=== PATIENT | male | born 1940 | race Caucasian/White ===

== ENCOUNTER → 2018-05-29 07:26 | Outpatient (CLI) | payer MEDICARE ==
[~2018-05-29] VITALS: Ht 177.8 cm; Wt 75.0 kg
--- NOTE | ~2018-05-29 | HEMODYNAMI ---
PATIENT:ED VEGA MEDICAL RECORD: [id number] : 44 LOCATION:[facility] ADMISSION DATE: 05/29/18 Generatedon:05/29/201810:16 Patient name: ED VEGA Patient #: [id number] SSN: : Date of study: 05/29/2018 Page: Of Hemodynamic Procedure Report Patient Data Patient Demographics Procedure consent was obtained First Name: ED Gender: Male Last Name: SILVIA : 1940 Patient #: [id number] Age: 77 year(s) Race: Unknown Additional ID: [id number] Contact details [address]: [address] [place] [address] State: [place] City: [place] Zip code: [address] Past Medical History Allergies Allergen Reaction Date Comments Reported Other allergy 05/29/2018 ALBUTEROL, CODEINE Admission Admission Data Admission Date: 05/29/2018 Admission Time: 7:26 Height (in.): 70 BSA: 1.91 (m2) Height (cm.): 177.8 BMI: 23.39 (kg/m2) Weight (lbs.): 163 Weight (kg.): 73.94 Lab Results Lab Result Date: 05/29/2018 Lab Result Time: 0:00 Biochemistry Name Units Result Min Max BUN mg/dl 27 --(----)-* 7 18 Creatinine mg/dl 0.9 --(-*--)-- 0.6 1.3 CBC Name Units Result Min Max Hemoglobin g/dl 12.9 -*(----)-- 13.5 17.5 Procedure Procedure Types Cath Procedure Diagnostic Procedure LHC LHC w/Coronaries w/Grafts Sedation Charges Moderate Sedation up to 15 minutes PCI Procedure AMI/SVG/PRINT DEVELOPER AUTOMATIC PTCA or Stent SVG-BMS/NAOMI Initial Procedure Description Procedure Date Procedure Date: 05/29/2018 Procedure Start Time: 9:37 Procedure End Time: 10:03 Procedure Staff Name Function Cecilia Veronica RN Histology Specialist Indra Negrete MD Performing Physician Alcides Chung RT Monitor Sujata Wilkins RT Scrub Ofelia Bowens RN Nurse Procedure Data Cath Procedure Fluoroscopy Diagnostic fluoroscopy Total fluoroscopy Time: time: 10.9 min 10.9 min Diagnostic fluoroscopy Total fluoroscopy dose: 832 dose: 832 mGy mGy Contrast Material Contrast Material Type Amount (ml) Isovue 300 135 Entry Location Entry Primary Successful Side Size Upsize Upsize Entry Closure Succes sful Closure Location (Fr) 1 (Fr) 2 (Fr) Remarks Device Remarks Femoral Right 5 Fr 6 Fr Exoseal artery Short Estimated blood loss: 10 ml Diagnostic catheters Device Type Used For End Catheter Placement MULTIPACK Pigtail 5 Fr Procedure catheter MULTIPACK JL 4.0 5Fr Procedure catheter MULTIPACK 3DRC 5Fr Procedure catheter DIAGNOSTIC AR2 MOD 5 Fr Procedure catheter ([id number]) DIAGNOSTIC AL2 5Fr Procedure catheter ([id number]) Procedure Complications No complications Procedure Medications Medication Administration Route Dosage 0.9% NaCl I.V. 100 ml/hr Oxygen etCO2 Nasal cannula 2 l/min Lidocaine 2% added to field 20 Heparin Flush Bag added to field 2 bags (1000units/500ml NS) Versed I.V. 2 mg Fentanyl I.V. 50 mcg Versed I.V. 2 mg Fentanyl I.V. 50 mcg Heparin Bolus I.V. 4000 units Integrilin (Bolus I.V. 6.8 ml 2mg/ml) Plavix P.O. 600 mg Nitroglycerin IC/IA I.C. 200 mcg Hemodynamics Rest BSA: 1.91 (m2) HGB: 12.9 (g/dl) O2 Consumption: Estimated: 221.83 (ml/min) O2 Co nsumption indexed: Estimated:116.14 (ml/min/m) Heart Rate: 73 (bpm) Snapshots Pre Cath Intra NCS Post Cath Vital Signs Time Heart Resp SPO2 etCO2 NIBP (mmHg) Rhythm Pain Sedation Rate (ipm) (%) (mmHg) Status Level (bpm) 9:15:24 72 21 97 23.2 189/109(151) NSR 0 (11) 10(A) , No pain 9:19:44 76 16 100 20.2 160/96(137) NSR 0 (11) 10(A) , No pain 9:24:00 74 23 96 29 163/90(128) NSR 0 (11) 10(A) , No pain 9:28:18 69 23 96 4.4 134/79(111) NSR 0 (11) 10(A) , No pain 9:32:32 68 26 97 16.5 140/81(113) NSR 0 (11) 10(A) , No pain 9:37:49 67 20 99 14.9 150/80(125) NSR 0 (11) 10(A) , No pain 9:42:05 78 20 96 8.2 133/84(113) NSR 0 (11) 10(A) , No pain 9:46:22 69 20 96 12.7 125/68(89) NSR 0 (11) 9(A) , No pain 9:50:36 71 17 96 17.2 117/61(86) NSR 0 (11) 9(A) , No pain 9:54:49 69 17 97 24.7 110/58(80) NSR 0 (11) 9(A) , No pain 9:58:57 75 22 97 33 98/64(89) NSR 0 (11) 9(A) , No pain 10:03:54 66 9 98 34.5 124/73(95) NSR 0 (11) 9(A) , No pain Medications Time Medication Route Dose Verified Delivered Reason Notes Effectiveness by by 9:14:23 0.9% NaCl I.V. 100 Indra Ofelia used for ml/hr Caden Bowens nail technician 9:14:29 Oxygen etCO2 2 Indra Ofelia used for Nasal l/min Caden Bowens procedure cannula RN 9:14:35 Lidocaine 2% added 20ml Indra Burrell for local to vial Caden Negrete MD anesthetic field 9:14:40 Heparin Flush added 2 Indra Indra used for Bag to bags Caden Negrete MD procedure (1000units/500ml field NS) 9:36:51 Versed I.V. 2 mg Indra Ofelia for sedation Caden Bowens RN 9:36:57 Fentanyl I.V. 50 Indra Ofelia for sedation mcg Caden Bowens RN 9:44:57 Versed I.V. 2 mg Indra Ofelia for sedation Caden Bowens RN 9:45:02 Fentanyl I.V. 50 Indra Ofelia for sedation mcg Tauth MD Kwan RN 9:48:10 Heparin Bolus I.V. 4000 Indra Gilbert for verifi ed units Caden Bowens anticoagulation with Dr. GYPSY Negrete 9:49:50 Integrilin I.V. 6.8 Indra Gilbert for wasted (Bolus 2mg/ml) ml Caden Bowens anticoagulation 3.2mL RN 9:50:09 Plavix P.O. 600 Indra Gilbert for mg Caden Bowens antiplatelet RN therapy 9:58:07 Nitroglycerin I.C. 200 Inrda Burrell for IC/IA mcg Caden Negrete MD vasodilation Procedure Log Time Note 8:58:40 Patient Height : 70 inches 8:58:49 Patient Weight : 163 lbs 8:59:35 Time tracking: Regular hours (M-F 7:00 - 5:00) 8:59:40 Plan of Care:Hemodynamics will remain stable., Cardiac rhythm will remain stable., Comfort level will be maintained., Respiratory function will remain adequate., Patient/ family verbilizes understanding of procedure., Procedure tolerated without complication., Recovers from procedure without complications.. 8:59:44 Diagnostic Cath status Elective 8:59:45 Signed procedure consent form obtained from patient. 8:59:53 H&P Date Dictated: 05/16/2018 Within 30 days and on chart., H&P Addendum completed by physician on day of procedure. (MUST COMPLETE FOR ALL OUTPATIENTS). 9:00:18 Patient allergic to Other allergyALBUTEROL, CODEINE 9:00:31 Cecilia Veronica RN sent for patient. Start room use. 9:01:46 Lab Result : Hemoglobin 12.9 g/dl 9:01:46 Lab Result : Creatinine 0.9 mg/dl 9:01:46 Lab Result : BUN 27 mg/dl 9:09:26 Patient received from Pre/Post Procedure Room to CCL 1 Alert and oriented. Tansferred to table in Supine position. 9:09:28 Correct patient and procedure confirmed by team. 9:09:28 Warm blankets applied, and milady hugger turned on for patient comfort. 9:09:29 ECG and BP/O2 sat monitors applied to patient. 9:14:10 Vital chart was started 9:14:23 0.9% NaCl 100 ml/hr I.V. was administered by Ofelia Kwan RN; used for procedure; 9:14:29 Oxygen 2 l/min etCO2 Nasal cannula was administered by Ofelia Bowens RN; used for procedure; 9:14:35 Lidocaine 2% 20ml vial added to field was administered by Indra Negrete MD; for local anesthetic; 9:14:40 Heparin Flush Bag (1000units/500ml NS) 2 bags added to field was administered by Indra Negrete MD; used for procedure; 9:21:42 Baseline sample Acquired. 9::46 Rhythm: sinus rhythm 9::48 Full Disclosure recording started 9::49 Pre-op teaching completed and patient verbalized understanding. 9::49 Pre-procedure instructions explained to patient. 9:21:53 Family in waiting room. 9:21:55 Patient NPO since Midnight. 9:21:56 Is the patient allergic to Iodine/contrast media? No. 9:21:58 Is patient on blood thinner?No 9:21:59 Patient diabetic? No. 9:22:02 Previous problem with sedation/anesthesia? No ? 9:22:03 Snore? Yes 9:22:04 Sleep apnea? No 9:22:05 Deviated septum? No 9:22:06 Sticks out tongue? Yes 9:22:06 Opens mouth fully? Yes 9:22:09 Airway obstruction? Yes COPD 9:22:15 Dentures? Yes IN TIGHT 9:22:19 Pre procedure: right dorsailis pedis pulse 2+ Normal; easily identifiable; not easily obliterated 9:22:20 Patient pain scale 0/10 ?. 9:22:26 IV patent on arrival in right forearm with 0.9% NaCl at [facility]. 9:22:28 Lab results completed and on chart. 9:22:31 Alarms reviewed by R. N. 9:22:31 Right groin area was prepped with chlora-prep and draped in sterile fashion 9:22:33 Sharps counted by scrub and verified by R.N. 9:22:35 Use device set Femoral Dx 9:22:36 Bag Decanter () opened to sterile field. 9:22:36 ACIST Syringe (98054) opened to sterile field. 9:22:37 Medline Cath Pack ([id number]) opened to sterile field. 9:22:38 ACIST Manifold (41410) opened to sterile field. 9:22:38 ACIST Hand Control (97891) opened to sterile field. 9:22:39 Tegaderm 4 x 4 (1626W) opened to sterile field. 9:22:39 DIAGNOSTIC Multipack 5Fr catheter set (RB9921) opened to sterile field. 9:22:41 SHEATH 5FR [place] (VYP658) opened to sterile field. 9:22:42 DIAGNOSTIC WIRE .035 260cm J wire (171022) opened to sterile field. 9:23:33 Physician paged 9:26:18 Zero performed for pressure channel P1 9:36:09 Physician arrived 9:36:10 Final Timeout: patient, procedure, and site verified with staff and physician. All members of the team are in agreement. 9:36:10 --------ALL STOP TIME OUT------ 9:36:11 Right groin site verified by team. 9:36:13 Physical assessment completed. ASA score P 3 - A patient with severe systemic disease as per Indra Negrete MD. 9:36:15 Sedation plan: IV Moderate Sedation Medication:Versed, Fentanyl 9:36:51 Versed 2 mg I.V. was administered by Ofelia Bowens RN; for sedation; 9:36:57 Fentanyl 50 mcg I.V. was administered by Ofelia Bowens RN; for sedation; 9:37:27 Procedure started. 9:37:30 Local anesthetic to right femoral artery with Lidocaine 2% by Indra Negrete MD.INITIAL ACCESS ONLY 9:37:34 A 5 Fr sheath was inserted into the Right Femoral artery 9:37:41 A MULTIPACK Pigtail 5 Fr catheter was advanced over the wire and used for Procedure. 9:39:35 LV gram done using LAIRD 9:39:37 Injector settings: Ml/sec: 10, Volume: 20, 9:39:39 LV hemodynamics recorded. 9:39:46 EF : 25 % 9:39:52 Catheter exchanged over wire. 9:39:56 A MULTIPACK JL 4.0 5Fr catheter was advanced over the wire and used for Procedure. 9:40:47 LCA angiography performed. 9:41:21 Catheter exchanged over wire. 9:41:29 A MULTIPACK 3DRC 5Fr catheter was advanced over the wire and used for Procedure. 9:42:52 AUGUSTIN angiography 9:42:56 RCA angiography performed. 9:43:01 SVG to RCA angiography performed. 9:43:45 SVG to LAD angiography performed. 9:44:06 Catheter exchanged over wire. 9:44:09 A DIAGNOSTIC AR2 MOD 5 Fr catheter ([id number]) was advanced over the wire and used for Procedure. 9:44:50 SVG to LAD angiography performed. 9:44:57 Versed 2 mg I.V. was administered by Ofelia Bowens RN; for sedation; 9:45:02 Fentanyl 50 mcg I.V. was administered by Ofelia Bowens RN; for sedation; 9:47:37 SHEATH 6FR [place] (PFD482) opened to sterile field. 9:47:42 Catheter removed. 9:47:49 Sheath upsized to a 6 Fr Short. 9:47:54 A DIAGNOSTIC AL2 5Fr catheter ([id number]) was advanced over the wire and used for Procedure. 9:48:03 SVG to Circ angiography performed. 9:48:10 Heparin Bolus 4000 units I.V. was administered by Ofelia Bowens RN; for anticoagulation; verified with Dr. Negrete 9:48:22 CHOICE PT Extra Support 182cm wire ([id number]) opened to sterile field. 9:48:23 INFLATOR Merit BasixCompak (XZ3278) opened to sterile field. 9:48:28 GUIDE 6FR AR 2.0 catheter (IL7WN90) opened to sterile field. 9:49:15 Catheter exchanged over wire. 9:49:21 6 Fr AR 2 guide catheter was inserted over the wire 9:49:50 Integrilin (Bolus 2mg/ml) 6.8 ml I.V. was administered by Ofelia Bowens RN; for anticoagulation; wasted 3.2mL 9:50:09 Plavix 600 mg P.O. was administered by Ofelia Bowens RN; for antiplatelet therapy; 9:50:37 SVG to RCA angiography performed. 9:50:40 The EUPHORA 2.5 x 12 Balloon ([id number]) was advanced and then removed because it was opened but not used 9:50:45 CHOICE PT ES wire advanced. 9:54:03 Place stent Inflation Number: 1 A JOSE Rx 4.0 x 38 stent ([id number]) was prepped and advanced across the Aorta Left -> Mid LAD. The stent was deployed at 17 PETER for 0:10 (min:sec). 9:54:34 Stent catheter was removed intact over wire. 9:55:40 Place stent Inflation Number: 2 A JOSE RX 4.0 x 15 stent ([id number]) was prepped and advanced across the Aorta Left -> Mid LAD. The stent was deployed at 17 PETER for 0:10 (min:sec). 9:56:07 Stent catheter was removed intact over wire. 9:58:07 Nitroglycerin IC/IA 200 mcg I.C. was administered by Indra Negrete MD; for vasodilation; 9:58:35 Wire removed. 9:58:36 Guide catheter removed. 9:58:49 EXOSEAL 6Fr (EX600) opened to sterile field. 9:58:56 Sheath removed intact; hemostasis achieved with Exoseal to the Right Femoral artery. 9:58:58 Procedure ended.(Physican Out) 10:01:28 Fluoroscopy time 10.90 minutes. 10:01:33 Fluoroscopy dose: 832 mGy 10:01:33 Flurop Dose total: 832 10:01:36 Contrast amount:Isovue 300 135ml. 10:01:37 Sharps counted by scrub and verified by R.N. 10:01:38 Insertion/operative site no bleeding no hematoma. 10:01:40 Post-op/insertion site Right Femoral artery dressed using a 4 x 4 and Tegaderm. 10:01:45 Post right femoral artery:stable, soft, clean and dry 10:01:47 Post Procedure Pulses reassessed and unchanged 10:01:52 Post-procedure physical assessment completed. ASA score P 3 - A patient with severe systemic disease as per Indra Negrete MD. 10:02:07 Post procedure rhythm: unchanged. 10:02:09 Estimated blood loss: 10 ml 10:02:11 Patient needs reinforcement of post procedure teaching. 10:02:11 Post procedure instruction explained to patient.Patient verbalizes understanding. 10:02:57 Procedure type changed to Cath procedure, Diagnostic procedure, LHC, LHC w/Coronaries w/Grafts, Sedation Charges, Moderate Sedation up to 15 minutes, PCI procedure, AMI/SVG/PRINT DEVELOPER AUTOMATIC PTCA or Stent, SVG-BMS/NAOMI Initial 10:03:23 Procedure and supply charges have been captured, reviewed, submitted and are correct. 10:03:26 Procedure Complication : No complications 10:03:27 Vital chart was stopped 10:03:28 See physician's report for complete and final results. 10:03:29 Report given to Pre/Post Procedure Room. 10:03:32 Full Disclosure recording stopped 10:03:32 Procedure ended. 10:03:37 End room use (Document Last) 10:15:40 FEMSTOP Gold ([id number]) opened to sterile field. 10:15:57 Femstop placed over the right femoral artery at 124 mmHg. Hemostasis achieved. Intervention Summary Intervention Notes Time ActionType Lesion and Equipment Used Action# Pressure Duration Attributes 9:50:40 Discard EUPHORA 2.5 x Balloon 12 Balloon ([id number]) 9:54:03 Place stent Aorta Left JOSE Rx 4.0 x 1 17 00:10 -> Mid LAD 38 stent ([id number]) 9:55:40 Place stent Aorta Left JOSE RX 4.0 x 2 17 00:10 -> Mid LAD 15 stent ([id number]) Device Usage Item Name Manufacture Quantity Catalog Number Hospital Part Current M inimal Lot# / Charge Number Stock Stock Serial# Code ACIST Syringe Acist 1 86476 717697 233518 178693 2 0 (69924) Medical Systems Inc Bag Decanter Microtek 1 2001S 094958 41213 454045 5 (2001S) Medical Inc. Medline Cath Medline 1 [id number] 483997 09909 453582 5 Pack ([id number]) ACIST Hand Acist 1 67815 750389 405108 112101 5 Control Medical (55477) Systems Inc ACIST Manifold Acist 1 91047 496331 628768 609635 5 (63132) Medical Systems Inc DIAGNOSTIC Cardinal 1 RR7841 074351 71849 285792 3 0 Multipack 5Fr Health catheter set (BC0072) Tegaderm 4 x 4 3M 1 1626W 086731 651156 352366 5 (1626W) SHEATH 5FR Terumo 1 GOX104 856395 456584 606401 4 0 [place] (UKT297) DIAGNOSTIC St Bakari 1 318765 341702 401792 771527 3 0 WIRE .035 260cm J wire (944582) MULTIPACK Cardinal 1 611244 5 Pigtail 5 Fr Health catheter MULTIPACK JL Cardinal 1 088246 5 4.0 5Fr Health catheter MULTIPACK 3DRC Cardinal 1 836471 5 5Fr catheter Health DIAGNOSTIC AR2 Cardinal 1 [id number] 849532 279350 420639 2 0 MOD 5 Fr Health catheter (293255O) SHEATH 6FR Terumo 1 BAI868 980106 172626 320913 4 0 [place] (OHO306) DIAGNOSTIC AL2 Cardinal 1 [id number] 410856 313876 420230 1 5 5Fr catheter Health (623107G) CHOICE PT Delta 1 [id number] 640907 707729 090162 5 Extra Support Scientific 182cm wire (5566729I4) INFLATOR Merit Merit 1 AV9639 724753 398930 529153 1 5 Medcurrent (GE8737) GUIDE 6FR AR Medtronic 1 [id number] 568189 01778 696189 1 2.0 catheter (XE3YR04) JOSE Rx 4.0 x Medtronic 1 [id number] 878350 1872329 224072 5 [id number] 38 stent ([id number]) JOSE RX 4.0 x Medtronic 1 [id number] 346043 9814127 124389 5 [id number] 15 stent ([id number]) EXOSEAL 6Fr Cardinal 1 EX600 021937 148244 417328 1 0 (EX600) Health EUPHORA 2.5 x Medtronic 1 [id number] 222440 295271 794378 5 [id number] 12 Balloon ([id number]) FEMSTOP Gold St Bakari 1 R32403 576547 061899 297423 5 ([id number]) Signature Audit [place] Stage Time Signature Unsigned Intra-Procedure 05/29/2018 Alcides Chung RT(R) 10:04:16 AM RT(R) 05/29/2018 10:15:10 AM Intra-Procedure 05/29/2018 Alcides Chung 10:16:19 AM RT(R) Signatures Monitor : Alcides Chung RT Signature : Date : Time : [facility] [address] [place] [address]
[~2018-05-29 07:26] MED LIST: ALDACTONE25 MG PO; BAYER CHEWABLE81 MG PO; BYSTOLIC5 MG PO; COMBIVENT RESPIM4 GM INH; CRESTOR5 MG PO; FLOMAX0.4 MG PO; LASIX20 MG PO; LEVAQUIN500 MG PO; PLAVIX75 MG PO; PREDNISONE20 MG PO; PREDNISONE50 MG PO; SPIRIVA18 MCG INH; STERAPRED DS 1210 MG PO; TENORMIN50 MG PO; VASOTEC10 MG PO; VASOTEC20 MG PO; VENTOLIN/PR2 MG/5 ML PO
[2018-05-29 08:01] VITALS: BP 207/109; Ht 177.8 cm; Wt 75.0 kg
[2018-05-29 08:35] LABS: BASOPHILS 1.1 % (0-2); EOSINOPHILS 6.9 % (0-7); HEMATOCRIT 37.5 % (42.0-54.0); HEMOGLOBIN 12.9 g/dL (13.5-17.5); IMMATURE GRANULOCYTES 0.2 % (0-5); MCH 30.6 pg (26.0-34.0); MCHC 34.4 g/dL (31.0-37.0); MCV 88.9 fL (80.0-100.0); MEAN PLATELET VOLUME 11.1 fL (7.4-10.4); MONOCYTES 11.6 % (2-11); NEUTROPHILS 54.2 % (40-80); PLATELET COUNT 190 10x3/uL (130-400); RBC 4.22 10x6/uL (4.20-6.10); WBC 5.4 10x3/uL (4.8-10.8)
[2018-05-29 08:43] LABS: CALC OSMOLALITY 280 mosm/kg (275-300); CALCIUM 8.9 mg/dL (8.5-10.1); CARBON DIOXIDE 28.6 mmol/L (21.0-32.0); CHLORIDE - SERUM 101 mmol/L (98-107); CREATININE - SERUM 0.9 mg/dL (0.6-1.3); GLUCOSE 105 mg/dL (74-106); SODIUM 138 mmol/L (136-145); UREA NITROGEN 27 mg/dL (7-18); eGFR NON AFRICAN AMERICAN 87 mL/min (90-120)
--- NOTE | 2018-05-29 10:33 | NUR ---
RECIEVED TO ROOM VIA STRETCHER FROM PHYSICIAN ADVISOR WITH 6 FR EXOSEAL R/GROIN FEMSTOP IN PLACE WITH NO BLEEDING NOTED. HEMATOMA MARKED FOR OBSERVATION. PATIENT DENIED CHEST PAIN. CONNECTED TO MONITOR FOR OBSERVATION WITH HR 66 BP 134/80
--- NOTE | 2018-05-29 10:41 | NUR ---
TOLERATING SIPS OF WATER WITH NAUSEA DENIED. FEMSTOP REMAINS TO R/GROIN AT 127 WITH NO GROWTH IN HEMATOMA.VSS
--- NOTE | 2018-05-29 11:05 | NUR ---
VSS WITH PATIENT RESTING QUIETLY. FEMSTOP REMAINS TO R/GROIN WITH PRESSURE AT 120 CHEST PAIN IS DENIED NO GROWTH TO HEMATOMA SITE SOFT TO TOUCH
--- NOTE | 2018-05-29 11:21 | NUR ---
FAMILY AT BEDSIDE WITH NEEDS DENIED CALL LIGHT IN REACH. PATIENT RESTING QUIETLY NO DISTRESS
--- NOTE | 2018-05-29 11:43 | NUR ---
PRESSURE TO FEMSTOP SLOWLY RELEASED TO 80 WITH NO BLEEDING OR HEMATOMA NOTED. VSS AND CHEST PAIN DENIED PATIENT VOIDS TO COLLECTION
--- NOTE | 2018-05-29 12:16 | NUR ---
PRESSURE TO FEMSTOP RELEASED TO 50 WITH NO BLEEDING NOTED. SANDWICH AND SODA TO BEDSIDE.
--- NOTE | 2018-05-29 12:47 | NUR ---
ALL PRESSURE TO FEMSTOP REMOVED WITH NO BLEEDING OR HEMATOMA NOTED. VSS AND CHEST PAIN IS DENIED
--- NOTE | 2018-05-29 13:32 | NUR ---
DRESSING TO R/GROIN REMAINS CDI WITH NO HEMATOMA NOTED. PATIENT REPOSITIONED TO SITTING WITH HOB UP 30 FOR COMFORT. CHEST PAIN IS DENIED. PIV REMOVED WITH DRESSING APPLIE. PATIENT EATING LUNCH WITH NAUSEA DENIED
--- NOTE | 2018-05-29 13:50 | NUR ---
VERBAL AND WRITTEN DISCHARGE GONE OVER WITH PATIENT AND FAMILY. PATIENT UP TO GET DRESSED FOR DISCHARGE HOME WITH CHEST PAIN DENIED
--- NOTE | 2018-05-29 14:00 | NUR ---
PATIENT LEFT VIA WC TO PARKING FOR RIDE HOME WITH FAMILY DRESSING TO R/GROIN CDI AND CHEST PAIN DENIED NO DISTRESS NOTED
--- NOTE | 2018-05-30 17:18 | OP ---
PATIENT NAME: ED VEGA MEDICAL RECORD: [id number] :42 LOCATION:D.CAT ADMISSION DATE: SURGEON: MAYRA MORRIS MD DATE OF OPERATION: 05/29/2018 PROCEDURES: 1. PTCA stent vein graft to LAD. 2. Left heart catheterization. 3. Selective coronary angiography. 4. Left ventriculogram. 5. Vein graft angiography. 6. AUGUSTIN angiography. INDICATION: Unstable angina and coronary artery disease. PROCEDURE IN DETAIL: After informed consent was obtained and after a detailed description of the risks, benefits as well as alternative therapies, the patient elected to proceed with angiogram and angioplasty. The right femoral area was prepped and draped in normal sterile fashion. Right femoral artery was cannulated via modified Seldinger technique with placement of 6-Faroese sheath. All catheters exchanged through this sheath. FINDINGS: The left ventriculogram was performed in standard 30-degree LAIRD view reveals global hypokinesis throughout all segments. Overall ejection fraction 25%. SELECTIVE CORONARY ANGIOGRAPHY: 1. Left main is 80% stenosis. 2. The left anterior descending is totally occluded. 3. Left circumflex is totally occluded. 4. Right coronary is totally occluded. 5. AUGUSTIN is nongrafted. 6. Vein graft to the LAD is patent. There are 2 areas of 75% stenosis in the mid shaft. 7. Vein graft to the circumflex is patent at least 2 areas of greater than 75% stenosis in the mid shaft. 8. Vein graft to the right coronary is patent. Distal right coronary is very tortuous after the graft there. The PLV has 95% stenosis. This cannot be reached due to the angulation. PTCA STENT OF THE LAD VEIN GRAFT: The stent used were 4.0 x 38 and 4.0 x 15, both Jack stents. Result was 0% residual stenosis. OVERALL IMPRESSION: Successful PTCA stent of the vein graft to the LAD going from greater than 75% initial stenosis to 0% residual. PLAN: PTCA stent of the vein graft to the circumflex in the near future. TRANSINT:[id number] Voice Confirmation ID: [id number] DOCUMENT ID: [id number] OPERATIVE REPORT [id number] ED VEGA JEFFREY MD at 3008 CC: [id number] DICTATION DATE: 05/29/18 1003 DESTINATION IMAGINATION COORDINATOR: 05/29/18 1137 DEP CLI 05/29/18 [facility] [address] [place] [address]
== END | disposition home or self-care (01) ==
LOC: D.CATH 07:26
PROVIDERS: Internal Medicine Interventional Cardiology
DX: I25.710 Atherosclerosis of autologous vein coronary artery bypass graft(s) with unstable angina pectoris (principal); I25.110 Atherosclerotic heart disease of native coronary artery with unstable angina pectoris; Z01.812 Encounter for preprocedural laboratory examination
CPT/HCPCS: 93459; C9604

== ENCOUNTER 2018-06-03 08:15 | Outpatient (CLI) | payer MEDICARE ==
[~2018-06-03] VITALS: Ht 177.8 cm; Wt 75.0 kg
--- NOTE | ~2018-06-03 | OP ---
PATIENT NAME: ED VEGA MEDICAL RECORD: [id number] :42 LOCATION:D.CAT ADMISSION DATE: SURGEON: MAYRA MORRIS MD DATE OF OPERATION: 06/03/2018 PROCEDURES: 1. PTCA stent vein graft to left circumflex. 2. Selective coronary angiography. 3. Bilateral selective renal angiography. INDICATION: Angina and coronary artery disease, renovascular hypertension. PROCEDURE IN DETAIL: After informed consent was obtained and after a detailed description of risks, benefits as well as alternative therapies, the patient elected to proceed with angiogram and angioplasty. The left femoral area was prepped and draped in normal sterile fashion. Left femoral artery was cannulated via modified Seldinger technique with placement of 6-Bahamian sheath. All catheters exchanged through this sheath. FINDINGS: The right renal artery is solitary artery off the aorta with no significant pressure damping at the ostium. No significant renal artery stenosis. The left renal artery is a solitary artery off the aorta with no significant pressure damping at the ostium. No significant renal artery stenosis. PTCA STENT OF VEIN GRAFT TO CIRCUMFLEX: There are 2 areas of 80% stenosis. These were both addressed with a 3.0 x 12 mm Jack stents. Result was 0% residual stenosis. OVERALL IMPRESSION: Successful percutaneous transluminal coronary angioplasty stent of the vein graft to the circumflex going from 80% initial stenosis times 2 to 0% residual. TRANSINT:[id number] Voice Confirmation ID: [id number] DOCUMENT ID: [id number] MAYRA MORRIS MD at 1025 CC: [id number] DICTATION DATE: 06/03/18 1216 RECREATION DIRECTOR: 06/03/18 1253 DEP CLI 06/03/[address] [address]
--- NOTE | ~2018-06-03 | HEMODYNAMI ---
PATIENT:ED VEGA MEDICAL RECORD: [id number] : 44 LOCATION:[facility] ADMISSION DATE: 06/03/18 Generatedon:06/03/201812:20 Patient name: ED VEGA Patient #: [id number] SSN: : Date of study: 06/03/2018 Page: Of Hemodynamic Procedure Report Patient Data Patient Demographics Procedure consent was obtained First Name: ED Gender: Male Last Name: SILVIA : 1940 Middle Initial: J Age: 77 year(s) Patient #: [id number] Race: Unknown Additional ID: [id number] Contact details [address]: [address] [place] [address] State: [place] City: [place] Zip code: [address] Past Medical History Allergies Allergen Reaction Date Comments Reported Other allergy 05/29/2018 ALBUTEROL, CODEINE Admission Admission Data Admission Date: 06/03/2018 Admission Time: 8:15 Lab Results Lab Result Date: 05/29/2018 Lab Result Time: 0:00 Biochemistry Name Units Result Min Max BUN mg/dl 27 --(----)-* 7 18 Creatinine mg/dl 0.9 --(-*--)-- 0.6 1.3 CBC Name Units Result Min Max Hemoglobin g/dl 12.9 -*(----)-- 13.5 17.5 Procedure Procedure Types Cath Procedure PCI Procedure AMI/SVG/MANAGER OF SECURITY PTCA or Stent SVG-BMS/NAOMI Initial Peripheral Cath Diagnostic Procedure Maintenance Painter Peripheral Procedures Renal Arteriogram Procedure Description Procedure Date Procedure Date: 06/03/2018 Procedure Start Time: 11:57 Procedure End Time: 12:18 Procedure Staff Name Function Indra Negrete MD Performing Physician Tyree Lamb RT Monitor Sujata Wilkins RT Scrub Christian Muñoz RN Head Golf Professional Cosmo James RN Nurse Procedure Data Cath Procedure Fluoroscopy Diagnostic fluoroscopy Total fluoroscopy Time: 8.2 time: 8.2 min min Diagnostic fluoroscopy Total fluoroscopy dose: 242 dose: 242 mGy mGy Contrast Material Contrast Material Type Amount (ml) Isovue 300 112 Entry Location Entry Primary Successful Side Size Upsize Upsize Entry Closure Succes sful Closure Location (Fr) 1 (Fr) 2 (Fr) Remarks Device Remarks Femoral Left 6 Fr Exoseal artery Short Estimated blood loss: 10 ml Procedure Complications No complications Procedure Medications Medication Administration Route Dosage 0.9% NaCl I.V. 100 ml/hr Oxygen etCO2 Nasal cannula 2 l/min Heparin Flush Bag added to field 2 bags (1000units/500ml NS) Oxygen etCO2 Nasal cannula 2 l/min Versed I.V. 1 mg Fentanyl I.V. 50 mcg Versed I.V. 1 mg Fentanyl I.V. 50 mcg Heparin Bolus I.V. 4000 units Hemodynamics Rest HGB: 12.9 (g/dl) Heart Rate: 68 (bpm) Snapshots Pre Cath Intra NCS Post Cath Vital Signs Time Heart Resp SPO2 etCO2 NIBP (mmHg) Rhythm Pain Sedation Rate (ipm) (%) (mmHg) Status Level (bpm) 11:43:02 100 12 98 0 162/90(139) NSR 0 (11) 10(A) , No pain 11:47:27 60 14 99 0 156/85(134) NSR 0 (11) 10(A) , No pain 11:51:47 62 20 100 0 134/80(111) NSR 0 (11) 10(A) , No pain 11:56:05 60 17 98 0 145/73(108) NSR 0 (11) 10(A) , No pain 12:00:21 63 12 100 0 132/80(102) NSR 0 (11) 9(A) , No pain 12:04:39 64 16 94 0 120/66(88) NSR 0 (11) 9(A) , No pain 12:08:53 62 12 92 0 109/60(86) NSR 0 (11) 9(A) , No pain 12:13:05 67 12 92 0 109/58(83) NSR 0 (11) 10(A) , No pain 12:17:15 65 21 91 0 108/67(92) NSR 0 (11) 10(A) , No pain Medications Time Medication Route Dose Verified Delivered Reason Notes Effectiveness by by 11:49:40 0.9% NaCl I.V. 100 Cosmo Cosmo Per physician ml/hr Jacob James RN RN 11:49:49 Oxygen etCO2 2 Cosmo Cosmo Per physician Nasal l/min Loralbertina James cannula RN RN 11:50:05 Heparin Flush added 2 Cosmo Cosmo used for Bag to bags Loralbertina James procedure (1000units/500ml field RN RN NS) 11:50:16 Oxygen etCO2 2 Cosmo Cosmo Per physician Nasal l/min Jacob James cannula RN RN 11:55:22 Versed I.V. 1 mg Cosmo Cosmo for sedation Loralbertina James RN RN 11:55:30 Fentanyl I.V. 50 Cosmo Cosmo for sedation mcg Jacob James RN RN 11:58:14 Versed I.V. 1 mg Cosmo Cosmo for sedation Jacob James RN RN 11:58:19 Fentanyl I.V. 50 Cosmo Cosmo for sedation mcg Jacob James RN RN 12:06:50 Heparin Bolus I.V. 4000 Cosmo Cosmo for units Lorigan Jacob anticoagulation RN donkey doctor Log Time Note 11:29:12 Signed procedure consent form obtained from patient. 11:29:19 Diagnostic Cath status Elective 11:29:27 Time tracking: Regular hours (M-F 7:00 - 5:00) 11:29:31 Plan of Care:Hemodynamics will remain stable., Cardiac rhythm will remain stable., Comfort level will be maintained., Respiratory function will remain adequate., Patient/ family verbilizes understanding of procedure., Procedure tolerated without complication., Recovers from procedure without complications.. 11:31:16 Christian Muñoz RN sent for patient. Start room use. 11:32:39 Procedure type changed to Cath procedure, PCI procedure, AMI/SVG/MANAGER OF SECURITY PTCA or Stent, SVG-BMS/NAOMI Initial, Peripheral Cath Diagnostic Procedure, Maintenance Painter Peripheral Procedures, Renal Arteriogram 11:37:07 Patient received from Pre/Post Procedure Room to CCL 3 Alert and oriented. Tansferred to table in Supine position. 11:37:10 Warm blankets applied, and milady hugger turned on for patient comfort. 11:37:10 Correct patient and procedure confirmed by team. 11:37:12 ECG and BP/O2 sat monitors applied to patient. 11:41:47 Vital chart was started 11:43:23 Baseline sample Acquired. 11:43:37 Rhythm: sinus rhythm 11:47:41 Rhythm: sinus bradycardia 11:47:43 Full Disclosure recording started 11:47:52 H&P Date Dictated: 06/03/2018 Within 30 days and on chart., H&P Addendum completed by physician on day of procedure. (MUST COMPLETE FOR ALL OUTPATIENTS). 11:47:54 Pre-procedure instructions explained to patient. 11:47:55 Pre-op teaching completed and patient verbalized understanding. 11:47:57 Family in patients room. 11:47:59 Patient NPO since Midnight. 11:48:02 Is the patient allergic to Iodine/contrast media? No. 11:48:05 Is patient on blood thinner?Yes 11:48:07 ACC The patient was administered the following blood thiners within the last 24 hours: ACCPlavix 11:48:10 Patient diabetic? No. 11:48:17 Previous problem with sedation/anesthesia? No ? 11:48:18 Snore? Yes 11:48:28 Sleep apnea? No 11:48:30 Deviated septum? No 11:48:30 Opens mouth fully? Yes 11:48:31 Sticks out tongue? Yes 11:48:34 Airway obstruction? Yes COPD 11:48:36 Dentures? Yes IN 11:49:14 Pre procedure: left dorsailis pedis pulse 1+ Palpable, but thready & weak; easily obliterated 11:49:22 Patient pain scale 0/10 ?. 11:49:25 IV patent on arrival in left forearm with 0.9% NaCl at [facility]. 11:49:27 Lab results completed and on chart. 11:49:32 Left groin area was prepped with chlora-prep and draped in sterile fashion 11:49:33 Alarms reviewed by R. N. 11:49:33 Sharps counted by scrub and verified by R.N. 11:49:36 Use device set Radial Dx or PCI 11:49:38 Use device set TAUTH PCI 11:49:40 0.9% NaCl 100 ml/hr I.V. was administered by Cosmo James RN; Per physician; 11:49:42 ACIST Syringe (93507) opened to sterile field. 11:49:42 Medline Cath Pack ([id number]) opened to sterile field. 11:49:44 ACIST Hand Control (77297) opened to sterile field. 11:49:44 ACIST Manifold (53400) opened to sterile field. 11:49:45 Bag Decanter (2002S) opened to sterile field. 11:49:46 Tegaderm 4 x 4 (1626W) opened to sterile field. 11:49:49 Oxygen 2 l/min etCO2 Nasal cannula was administered by Cosmo James RN; Per physician; 11:49:49 DIAGNOSTIC WIRE .035 260cm J wire (095054) opened to sterile field. 11:49:54 INFLATOR Merit BasixCompak (EV4357) opened to sterile field. 11:50:02 CHOICE PT Extra Support 182cm wire ([id number]) opened to sterile field. 11:50:05 Heparin Flush Bag (1000units/500ml NS) 2 bags added to field was administered by Cosmo James RN; used for procedure; 11:50:13 SHEATH 6FR Webster (RMX631) opened to sterile field. 11:50:16 Oxygen 2 l/min etCO2 Nasal cannula was administered by Cosmo James RN; Per physician; 11:54:52 --------ALL STOP TIME OUT------ 11:54:52 Final Timeout: patient, procedure, and site verified with staff and physician. All members of the team are in agreement. 11:54:56 Left groin site verified by team. 11:54:58 Physical assessment completed. ASA score P 2 - A patient with mild systemic disease as per Indra Negrete MD. 11:55:01 Sedation plan: IV Moderate Sedation Medication:Versed, Fentanyl 11:55:22 Versed 1 mg I.V. was administered by Cosmo James RN; for sedation; 11:55:30 Fentanyl 50 mcg I.V. was administered by Cosmo James RN; for sedation; 11:57:28 GUIDE 6FR AR 2.0 catheter (JV2ND02) opened to sterile field. 11:57:33 Procedure started. 11:57:44 Local anesthetic to left femerol artery with Lidocaine 2% by Indra Negrete MD.INITIAL ACCESS ONLY 11:57:56 A 6 Fr Short sheath was inserted into the Left Femoral artery 11:58:14 Versed 1 mg I.V. was administered by Cosmo James RN; for sedation; 11:58:19 Fentanyl 50 mcg I.V. was administered by Cosmo James RN; for sedation; 11:58:21 6 Fr AR 2 guide catheter was inserted over the wire 11:59:55 Guide Catheter removed. unable to cannulate vessel. 12:00:11 GUIDE 6FR ART 4.0 catheter ([id number]) opened to sterile field. 12:00:33 6 Fr ART 4 guide catheter was inserted over the wire 12:01:08 Guide Catheter removed. unable to cannulate vessel. 12:02:53 GUIDE 6FR AL 2.0 catheter (UI6TN72) opened to sterile field. 12:03:03 6 Fr AL 2 guide catheter was inserted over the wire 12:04:20 Guide Catheter removed. unable to cannulate vessel. 12:04:32 GUIDE 6FR LCB catheter (LA6LCB) opened to sterile field. 12:04:43 6 Fr LCB guide catheter was inserted over the wire 12:05:59 CPTXS wire advanced. 12:06:44 Wire advanced across lesion. 12:06:50 Heparin Bolus 4000 units I.V. was administered by Cosmo James RN; for anticoagulation; 12:08:36 Place stent Inflation Number: 1 A JOSE RX 3.0 x 12 stent ([id number]) was prepped and advanced across the Aorta Left -> Dist CX. The stent was deployed at 11 PETER for 0:10 (min:sec). 12:09:51 Stent catheter was removed intact over wire. 12:10:12 Place stent Inflation Number: 1 A JOSE RX 3.0 x 12 stent ([id number]) was prepped and advanced across the Aorta Left -> Dist CX1. The stent was deployed at 15 PETER for 0:10 (min:sec). 12:10:46 Stent catheter was removed intact over wire. 12:10:47 Wire removed. 12:12:42 Left renal angiography performed. 12:12:43 Right renal angiography performed. 12:12:48 EXOSEAL 6Fr (EX600) opened to sterile field. 12:13:03 Guide catheter removed. 12:13:51 Sheath removed intact; hemostasis achieved with Exoseal to the Left Femoral artery. 12:13:53 Procedure ended.(Physican Out) 12:16:06 Fluoroscopy time 08.20 minutes. 12:16:10 Fluoroscopy dose: 242 mGy 12:16:10 Flurop Dose total: 242 12:16:13 Contrast amount:Isovue 300 112ml. 12:16:15 Sharps counted by scrub and verified by R.N. 12:16:16 Insertion/operative site no bleeding no hematoma. 12:16:18 Post-op/insertion site Left Femoral artery dressed using a 4 x 4 and Tegaderm. 12:16:19 Post Procedure Pulses reassessed and unchanged 12:16:21 Post-procedure physical assessment completed. ASA score P 2 - A patient with mild systemic disease as per Indra Negrete MD. 12:16:24 Post procedure rhythm: unchanged. 12:16:27 Estimated blood loss: 10 ml 12:16:28 Post procedure instruction explained to patient.Patient verbalizes understanding. 12:16:28 Patient needs reinforcement of post procedure teaching. 12:16:53 Procedure and supply charges have been captured, reviewed, submitted and are correct. 12:16:56 Procedure Complication : No complications 12:18:48 Vital chart was stopped 12:18:48 See physician's report for complete and final results. 12:18:52 Report given to Pre/Post Procedure Room. 12:18:56 Patient transfered to Pre/Post Procedure Room with Stretcher. 12:18:59 Procedure ended. 12:18:59 Full Disclosure recording stopped 12:19:24 End room use (Document Last) Intervention Summary Intervention Notes Time ActionType Lesion and Equipment Used Action# Pressure Duration Attributes 12:08:36 Place stent Aorta Left JOSE RX 3.0 x 1 11 00:10 -> Dist CX 12 stent ([id number]) 12:10:12 Place stent Aorta Left JOSE RX 3.0 x 1 15 00:10 -> Dist CX1 12 stent ([id number]) Device Usage Item Name Manufacture Quantity Catalog Number Hospital Part Current M inimal Lot# / Charge Number Stock Stock Serial# Code ACIST Syringe Acist 1 17333 991841 660385 789955 2 0 (44365) Bioceros Systems Inc Medline Cath Medline 1 [id number] 562740 00371 299868 5 Pack ([id number]) ACIST Hand Acist 1 32915 427173 504154 842102 5 Control Medical (11922) Overlay Studio Inc ACIST Manifold Acist 1 52332 879515 590731 812698 5 (59520) Medical Systems Inc Bag Decanter Microtek 1 2001S 093322 07369 171165 5 (2001S) Medical Inc. Tegaderm 4 x 4 3M 1 1626W 836028 177427 368335 5 (1626W) DIAGNOSTIC St Bakari 1 936578 355956 382229 440036 3 0 WIRE .035 260cm J wire (529842) INFLATOR Merit Merit 1 SV8029 793042 889805 109317 1 5 Rx Network (DW0802) CHOICE PT Bolivar 1 [id number] 136507 544135 183015 5 Extra Support Scientific 182cm wire ([id number]) SHEATH 6FR Terumo 1 PQW687 461658 885526 136257 4 0 Webster (ZDB121) GUIDE 6FR AR Medtronic 1 ST2WV34 071787 49175 544825 1 2.0 catheter ([id number]) GUIDE 6FR ART [place]ivar 1 [id number] 205299 994112 642371 0 4.0 catheter Scientific ([id number]) GUIDE 6FR AL Medtronic 1 SL1RC53 538319 25419 180651 1 2.0 catheter ([id number]) GUIDE 6FR LCB Medtronic 1 LA6LCB 542177 14062 859912 1 catheter (LA6LCB) JOSE RX 3.0 x Medtronic 2 [id number] 581054 6752782 446859 5 [id number] 12 stent [id number] ([id number]) EXOSEAL 6Fr Cardinal 1 EX600 322072 238201 462784 1 0 (EX600) Health Signature Audit [place] Stage Time Signature Unsigned Intra-Procedure 06/03/2018 Tyree Lamb 12:20:29 PM RT(R) Signatures Monitor : Tyree Lamb RT Signature : Date : Time : [facility] [address] [place] [address]
--- NOTE | ~2018-06-03 | HP ---
PATIENT: ED ABEBE MEDICAL RECORD: [id number] ACCOUNT: [id number] LOCATION:[facility] : 44 ADMISSION DATE: 06/03/18 PCP: VIKKI GOOD MD HISTORY AND PHYSICAL EXAMINATION ADMITTING DIAGNOSES: 1. Angina. 2. Coronary artery disease. 3. Recent percutaneous transluminal coronary angioplasty stent vein graft to left anterior descending with concomitant disease vein graft to left circumflex. 4. Hypertension. 5. Hyperlipidemia. HISTORY OF PRESENT ILLNESS: Mr. Abebe presents with anginal symptomatology, found to have significant disease in the vein graft to the LAD and vein graft to the circumflex, underwent successful PTCA stent of the vein graft to the LAD. He is now brought back for PTCA stent of the vein graft to circumflex. REVIEW OF SYSTEMS: The patient reports easy bruising but reports no swollen glands. The patient reports no fever, no night sweats, no significant weight gain, no significant weight loss. No significant exercise tolerance. The patient reports no dry eyes, no irritation, no vision change. Patient reports no difficulty hearing and no ear pain. Patient reports no frequent nose bleeds or nose and sinus problems. Patient reports on arm pain on exertion. No shortness of breath while lying down. No history of heart murmur. Patient reports no cough, no wheezing or coughing up blood. Patient reports no abdominal pain, no vomiting. Normal appetite. No diarrhea and not vomiting blood. No nausea and no constipation. Patient reports no incontinence. No difficulty urinating. No hematuria. No increased frequency. Patient reports no muscle aches. No weakness, no arthralgias, no back pain. No swelling of the extremities. Patient reports no abnormal mole, no jaundice, no rashes. Reports no loss of consciousness. No weakness and no numbness. No seizures, dizziness, or headaches. The patient reports no depression, no sleep disturbance, feeling safe in a relationship and no alcohol abuse. Patient reports on fatigue. Reports no runny nose or sinus pressure. No itching, no hives, and no frequent sneezing. PHYSICAL EXAMINATION: GENERAL APPEARANCE: Well-nourished, well-developed, appears stated age. Level of distress, comfortable. PSYCHIATRIC: Mental status, alert, normal affect. Orientation, oriented to time, place and person. EYES: Lids and conjunctiva, noninjected. No discharge, no pallor. ENT: Lips, teeth, gums, normal dentition. Oropharynx, no cyanosis, no pallor. NECK: Carotid arteries, bilateral normal upstroke, no bruits, no thrills. JUGULAR VEINS: No jugular venous pressure or distention. CERVICAL LYMPH NODES: Nontender, nonenlarged. THYROID: Not enlarged. Nontender. No nodules. LUNGS: Respiratory effort, unlabored. CHEST: Normal curvature. No thoracic deformity. No chest wall tenderness. Percussion, resonant. Auscultation, clear. No wheezes, no rales, no rhonchi. CARDIOVASCULAR: Precordial exam, nondisplaced. No heaves or pericardial thrills. Rate and rhythm, regular. Heart sounds, normal S1, normal S2. No S3, no gallop, no rub. Systolic murmur, not heard. Diastolic murmur, not heard. EXTREMITIES: No cyanosis, no edema. Peripheral pulses, full and equal in all HISTORY AND PHYSICAL [id number] ED ABEBE extremities, except as noted. No bruits appreciated. ABDOMEN: Soft, nondistended. Normal aorta. No bruit. Nontender. No masses. Liver, nontender, no hepatomegaly. Spleen, nontender, no splenomegaly. MUSCULOSKELETAL: No joint tenderness. No joint swelling. No erythema. NEUROLOGICAL: Normal gait, normal strength, normal tone. SKIN: Warm and dry. OVERALL IMPRESSION: Anginal symptomatology with disease of the vein graft to the circumflex. We will proceed with transcatheter revascularization of the vein graft to circumflex. TRANSINT:[id number] Voice Confirmation ID: [id number] DOCUMENT ID: [id number] MAYRA MORRIS MD at 1025 CC: [id number] DICTATION DATE: 06/03/18 1215 FRAME POLISHER: 06/03/18 1229 DEP CLI 06/03/18 [place] [address]
[2018-06-03 09:05] VITALS: BP 201/103; Ht 177.8 cm; Wt 75.0 kg
[2018-06-03 09:10] LABS: BASOPHILS 1.2 % (0-2); EOSINOPHILS 7.5 % (0-7); HEMATOCRIT 39.7 % (42.0-54.0); HEMOGLOBIN 13.7 g/dL (13.5-17.5); IMMATURE GRANULOCYTES 0.3 % (0-5); LYMPHOCYTES 23.7 % (15-50); MCH 31.1 pg (26.0-34.0); MCHC 34.5 g/dL (31.0-37.0); MEAN PLATELET VOLUME 10.6 fL (7.4-10.4); MONOCYTES 8.3 % (2-11); PLATELET COUNT 215 10x3/uL (130-400); RBC 4.41 10x6/uL (4.20-6.10); RDW 12.9 % (11.5-14.5); WBC 5.9 10x3/uL (4.8-10.8)
[2018-06-03 09:27] LABS: ANION GAP 13.1 mmol/L (8-16); CALCIUM 9.3 mg/dL (8.5-10.1); CARBON DIOXIDE 29.5 mmol/L (21.0-32.0); CREATININE - SERUM 1.1 mg/dL (0.6-1.3); POTASSIUM - SERUM 4.6 mmol/L (3.5-5.1)
== END 2018-06-03 16:40 | disposition home or self-care (01) ==
LOC: D.CATH 08:15
PROVIDERS: Internal Medicine Interventional Cardiology
DX: I25.119 Atherosclerotic heart disease of native coronary artery with unspecified angina pectoris (principal); I25.719 Atherosclerosis of autologous vein coronary artery bypass graft(s) with unspecified angina pectoris; E78.5 Hyperlipidemia, unspecified; Z95.5 Presence of coronary angioplasty implant and graft; I15.0 Renovascular hypertension; Z01.812 Encounter for preprocedural laboratory examination
CPT/HCPCS: 36252; C9604

== ENCOUNTER → 2018-11-20 09:21 | Outpatient (CLI) | payer MEDICARE ==
[2018-06-03 09:05] VITALS: BMI 23.7
--- NOTE | ~2018-11-20 | EC ---
PATIENT:ED VEGA DATE OF SERVICE: 11/20/18 SEX: M MEDICAL RECORD: [id number] DATE OF : 44 LOCATION:[facility] AGE OF PATIENT: 78 ADMISSION DATE: 11/20/18 REFERRING PHYSICIAN: INTERPRETING PHYSICIAN: MAYRA NEGRETE MD ECHOCARDIOGRAM REPORT ECHO CHARGES 4 ECHO COMPLETE Date: 11/20/18 CLINICAL DIAGNOSIS: HTN/ ASSESS EF HX OF CABG ECHOCARDIOGRAPHIC MEASUREMENTS (adult normal given) AC root (d.<3.7cm) 3.7 cm LV Septum d (<1.2 cm> 1.0 cm Valve Excursion 1.0 cm LV Septum (systole) 1.2 cm Left Atria (s.<4.0cm> 3.7 cm LVPW d(<1.2cm) 1.1 cm RV (d.<2.3cm) 3.9 cm LVPW (sytole) 1.5 cm LV diastole(<5.6CM) 4.8 cm MV E-F(>70mm/sec) cm LV systole 3.2 cm LVOT Diameter 1.9 cm MV exc.(>10mm) 1.6 cm Est.ejection fraction (50-75%) % DOPPLER: LVIT cm/sec A 72.0 cm/sec E 66.0 cm/sec LA cm/sec RVSP 37 mmHg LVOT 83 cm/sec AOP1/2T m/s Asc. Ao 117 cm/sec RVOT 48 cm/sec RA cm/sec PA 91 cm/sec AV Gradient Peak 5.52 mmHg AV Mean 3.02 mmHg AV Area 2.0 cm MV Gradient Peak 2.79 mmHg MV Mean 1.34 mmHg MV Area cm COMMENTS: Lens Inspector: Abel WOODY Industrial Commercial Groundskeeper: 1 Dr. Negrete TAPE# PACS Pericardial Effusion N DATE OF SERVICE: 11/20/2018 PROCEDURE: Echocardiogram. FINDINGS: 1. Left ventricular chamber size is within normal limits. Left ventricular systolic function is normal. Overall ejection fraction estimated at 55%. 2. Left atrium is within normal limits at 3.7 cm. Right atrium and right ventricular chamber sizes are mildly dilated. 3. Valvular structures have normal structure and motion. ECHOCARDIOGRAM REPORT [id number] ED VEGA 4. Doppler interrogation reveals trace mitral regurgitation, mild tricuspid regurgitation, no other valvular insufficiency or stenosis. 5. No evidence of pericardial effusion or left ventricular thrombus. TRANSINT:[id number] Voice Confirmation ID: [id number] DOCUMENT ID: [id number] MAYRA NEGRETE MD CC: [id number] DICTATION DATE: 11/20/18 1545 ACCOUNTS PAYABLE OR RECEIVABLE CLERK: 11/20/18 1557 [facility] [address] [place] [id number]
== END | disposition home or self-care (01) ==
LOC: D.HCCARDIO 09:21
PROVIDERS: ATTEND Internal Medicine Interventional Cardiology
DX: I10 Essential (primary) hypertension (principal)

== ENCOUNTER → 2018-12-27 07:01 | Outpatient (CLI) | payer MEDICARE ==
[2018-06-03 09:05] VITALS: BMI 23.7
== END | disposition home or self-care (01) ==
LOC: D.RT 07:01
PROVIDERS: ATTEND Internal Medicine Pulmonary Disease
DX: J44.9 Chronic obstructive pulmonary disease, unspecified (principal)

== ENCOUNTER → 2019-01-13 11:02 | Outpatient (CLI) | payer MEDICARE ==
[2018-06-03 09:05] VITALS: BMI 23.7
== END | disposition home or self-care (01) ==
LOC: D.CT 11:02
PROVIDERS: ATTEND Internal Medicine Pulmonary Disease
DX: R93.89 Abnormal findings on diagnostic imaging of other specified body structures (principal)

== ENCOUNTER 2019-01-27 06:45 | Outpatient (CLI) | payer MEDICARE ==
[~2019-01-27] VITALS: Ht 177.8 cm; Wt 72.3 kg
[2019-01-27 07:23] LABS: ANION GAP 11.6 mmol/L (8-16); CALCIUM 9.2 mg/dL (8.5-10.1); CARBON DIOXIDE 29.3 mmol/L (21.0-32.0); CREATININE - SERUM 1.1 mg/dL (0.6-1.3); POTASSIUM - SERUM 3.9 mmol/L (3.5-5.1)
[2019-01-27 07:28] LABS: HEMATOCRIT 36.9 % (42.0-54.0); HEMOGLOBIN 12.7 g/dL (13.5-17.5); MCHC 34.4 g/dL (31.0-37.0); MEAN PLATELET VOLUME 10.5 fL (7.4-10.4); PLATELET COUNT 240 10x3/uL (130-400); RDW 12.8 % (11.5-14.5); WBC 8.2 10x3/uL (4.8-10.8)
[2019-01-27 07:34] LABS: APTT 27.8 SECONDS (22.8-39.4); INR 1.02 (0.85-1.17); PROTIME 12.9 SECONDS (11.6-15.0)
[2019-01-27 08:27] VITALS: BP 170/95; Ht 177.8 cm; Wt 72.3 kg
--- NOTE | 2019-01-27 08:49 | NUR ---
MAYRA CORRAL (DR MARTINS NURSE) INSTRUCT ORDER NEEDS TO BE CHANGED TO LEFT LUNG BIOPSY PER DR NIX. STATES, "WILL FAX A NEW ORDER."
[2019-01-27 09:05] LABS: EOSINOPHILS 5 % (0-7); LYMPHOCYTES 20 % (15-50); MONOCYTES 12 % (2-11); NEUTROPHILS 61 % (40-80); PLATELET ESTIMATE NORMAL
--- NOTE | 2019-01-27 12:01 | NUR ---
1010 SEE VS SHEET
--- NOTE | 2019-01-27 12:11 | NUR ---
PCXR HERE AND DONE KALIN WELL
--- NOTE | 2019-01-27 12:56 | NUR ---
PT RESTING COMFORTABLY AT THIS TIME, NO DISTRESS NOTED, RESPIRATIONS EVEN AND UNLABORED.
--- NOTE | 2019-01-27 13:40 | NUR ---
PT RESTING COMFORTABLY AT THIS TIME, NO ACUTE DISTRESS NOTED, RESPIRATIONS EVEN AND UNLABORED.
--- NOTE | 2019-01-27 13:56 | NUR ---
PT IV REMOVED AT THIS TIME, INTACT, NO REDNESS OR SWELLING NOTED AT SITE. PT DC INSTRUCTIONS REVIEWED AT THIS TIME, PT VERBALIZES UNDERSTANDING. NO DISTRESS NOTED AT THIS TIME, PT DENIES NAUSEA, TOLERATING FLUIDS WELL.
--- NOTE | 2019-01-27 14:05 | NUR ---
X-RAY RESULTS INDICATE NO PNEUMOTHORAX NOTED. DC'D IV CATH FULLY INTACT. DC INSTRUCTIONS GIVEN TO PT/FAMILY BY FERNANDO WREN RN. PT LEFT UNIT VIA WC AT 1403
== END 2019-01-27 14:03 | disposition home or self-care (01) ==
LOC: D.CT 06:45
PROVIDERS: General Practice; ATTEND Internal Medicine Pulmonary Disease
DX: R91.8 Other nonspecific abnormal finding of lung field (principal)

== ENCOUNTER 2019-04-21 17:37 | Inpatient (IN) | payer MEDICARE ==
[~2019-04-21] VITALS: Ht 177.8 cm; Wt 73.1 kg
[2019-04-21 18:09] VITALS: BP 98/60
--- NOTE | 2019-04-21 19:07 | NUR ---
BS REPORT TO GYPSY GEE
[2019-04-21 19:22] LABS: HEMATOCRIT 22.5 % (42.0-54.0); HEMOGLOBIN 7.9 g/dL (13.5-17.5); MCH 31.2 pg (26.0-34.0); MCHC 35.1 g/dL (31.0-37.0); MCV 88.9 fL (80.0-100.0); MEAN PLATELET VOLUME 9.8 fL (7.4-10.4); PLATELET COUNT 192 10x3/uL (130-400); RBC 2.53 10x6/uL (4.20-6.10); RDW 13.8 % (11.5-14.5)
[2019-04-21 19:28] LABS: APTT 29.1 SECONDS (22.8-39.4); INR 1.1 (0.85-1.17); PROTIME 13.7 SECONDS (11.6-15.0)
[2019-04-21 19:29] LABS: WBC 1.9 10x3/uL (4.8-10.8)
[2019-04-21 19:30] LABS: CALC OSMOLALITY 260 mosm/kg (275-300); CALCIUM 8.4 mg/dL (8.5-10.1); CARBON DIOXIDE 20.9 mmol/L (21.0-32.0); CHLORIDE - SERUM 95 mmol/L (98-107); CREATININE - SERUM 2.3 mg/dL (0.6-1.3); GLUCOSE 110 mg/dL (74-106); POTASSIUM - SERUM 5.4 mmol/L (3.5-5.1); SODIUM 127 mmol/L (136-145); UREA NITROGEN 26 mg/dL (7-18); eGFR NON AFRICAN AMERICAN 29 mL/min (90-120)
[2019-04-21 19:53] LABS: ALBUMIN 2.7 g/dL (3.4-5.0); ALKALINE PHOSPHATASE 43 U/L (46-116); ALT (SGPT) 18 U/L (10-68); BILIRUBIN - TOTAL 0.52 mg/dL (0.2-1.3); CREATINE KINASE 241 UL (21-232); PRO BNP 6972 pg/mL (0-450); PROTEIN - SERUM 6.1 g/dL (6.4-8.2)
[2019-04-21 19:55] LABS: TROPONIN-I 0.185 ng/mL (0.000-0.060)
[2019-04-21 20:17] LABS: CKMB 15.1 U/L (0.0-3.6)
[2019-04-21 20:23] LABS: EOSINOPHILS 1 % (0-7); LYMPHOCYTES 47 % (15-50); MONOCYTES 5 % (2-11); NEUTROPHILS 46 % (40-80); PLATELET ESTIMATE NORMAL
--- NOTE | 2019-04-21 21:00 | NUR ---
RECIEVED TO FLOOR ACCOMPANIED BY HOSPITAL STAFF. A&O X 4. AMBULATORY WITH ASSIST. REPORTS SOB UPON EXERTION. DENIES PAIN AT THIS TIME, IV TO LEFT FOREARM INFUSING. DENIES NEEDS AT THIS TIME, WILL CONTINUE TO MONITOR.
[2019-04-22 00:02] VITALS: BMI 21.5
[2019-04-22 01:04] VITALS: BP 131/77
[2019-04-22 03:13] LABS: ALBUMIN 2.1 g/dL (3.4-5.0); ALKALINE PHOSPHATASE 31 U/L (46-116); ALT (SGPT) 15 U/L (10-68); BILIRUBIN - TOTAL 0.64 mg/dL (0.2-1.3); CALC OSMOLALITY 269 mosm/kg (275-300); CARBON DIOXIDE 21.3 mmol/L (21.0-32.0); CHLORIDE - SERUM 105 mmol/L (98-107); CREATINE KINASE 204 UL (21-232); GLUCOSE 72 mg/dL (74-106); PHOSPHOROUS 3.2 mg/dL (2.5-4.9); PROTEIN - SERUM 4.6 g/dL (6.4-8.2); SODIUM 134 mmol/L (136-145); UREA NITROGEN 21 mg/dL (7-18)
[2019-04-22 03:18] LABS: BASOPHILS 0 % (0-2); EOSINOPHILS 0.8 % (0-7); HEMATOCRIT 21.1 % (42.0-54.0); IMMATURE GRANULOCYTES 4.7 % (0-5); LYMPHOCYTES 16.3 % (15-50); MCH 31.1 pg (26.0-34.0); MCHC 34.6 g/dL (31.0-37.0); MCV 89.8 fL (80.0-100.0); MEAN PLATELET VOLUME 9.7 fL (7.4-10.4); MONOCYTES 20.2 % (2-11); RBC 2.35 10x6/uL (4.20-6.10); RDW 13.8 % (11.5-14.5)
[2019-04-22 03:24] LABS: CREATININE - SERUM 1.2 mg/dL (0.6-1.3); POTASSIUM - SERUM 3.8 mmol/L (3.5-5.1); TROPONIN-I 1.342 ng/mL (0.000-0.060); eGFR NON AFRICAN AMERICAN 63 mL/min (90-120)
[2019-04-22 03:25] LABS: HEMOGLOBIN 7.3 g/dL (13.5-17.5); MAGNESIUM - SERUM 0.9 mg/dL (1.8-2.4); PLATELET COUNT 133 10x3/uL (130-400); WBC 1.3 10x3/uL (4.8-10.8)
[2019-04-22 04:42] VITALS: BP 99/53
--- NOTE | 2019-04-22 08:00 | NUR ---
ASSESSMENT PER FLOW SHEET. BED ALARM ON BED AND WORKING.PT IS WITHOUT DISTRESS.DOOR OPEN TO MONITOR
[2019-04-22 08:27] VITALS: BP 126/62
[2019-04-22 08:38] LABS: ALBUMIN 2.1 g/dL (3.4-5.0); ANION GAP 14.9 mmol/L (8-16); BILIRUBIN - TOTAL 0.6 mg/dL (0.2-1.3); CARBON DIOXIDE 17.9 mmol/L (21.0-32.0); CREATININE - SERUM 1.3 mg/dL (0.6-1.3); PHOSPHOROUS 3.3 mg/dL (2.5-4.9); POTASSIUM - SERUM 3.8 mmol/L (3.5-5.1); PROTEIN - SERUM 4.6 g/dL (6.4-8.2)
[2019-04-22 08:43] LABS: CALCIUM 6.8 mg/dL (8.5-10.1)
[2019-04-22 08:44] LABS: CKMB 11.5 U/L (0.0-3.6); CREATINE KINASE 247 UL (21-232); TROPONIN-I 1.283 ng/mL (0.000-0.060)
[2019-04-22 09:51] VITALS: Ht 177.8 cm; Wt 73.1 kg
[2019-04-22 11:44] LABS: MCH 31.2 pg (26.0-34.0); MCHC 34.7 g/dL (31.0-37.0); MCV 89.8 fL (80.0-100.0); RDW 13.9 % (11.5-14.5)
[2019-04-22 11:45] LABS: HEMATOCRIT 30.8 % (42.0-54.0); HEMOGLOBIN 10.7 g/dL (13.5-17.5); PLATELET COUNT 176 10x3/uL (130-400); RBC 3.43 10x6/uL (4.20-6.10); WBC 2.1 10x3/uL (4.8-10.8)
[2019-04-22 14:08] LABS: % SATURATION 69 % (15-55); IRON 83 ug/dl (35-150); TOTAL IRON BIND CAPACITY 119 ug/dl (260-445); UNSAT IRON BIND CAPACITY 36 ug/dl (150-375)
[2019-04-22 14:25] LABS: ANISOCYTOSIS OCC; EOSINOPHILS 2 % (0-7); LYMPHOCYTES 13 % (15-50); MONOCYTES 9 % (2-11); NEUTROPHILS 63 % (40-80); PLATELET ESTIMATE NORMAL; ROULEAUX OCC
[2019-04-22 15:56] LABS: CKMB 14.2 U/L (0.0-3.6); CREATINE KINASE 225 UL (21-232)
[2019-04-22 15:59] LABS: TROPONIN-I 1.266 ng/mL (0.000-0.060)
[2019-04-22 17:19] VITALS: BP 145/75
[2019-04-22 18:09] LABS: BASOPHILS 0 % (0-2); EOSINOPHILS 0.3 % (0-7); HEMATOCRIT 33.9 % (42.0-54.0); HEMOGLOBIN 11.7 g/dL (13.5-17.5); IMMATURE GRANULOCYTES 4.2 % (0-5); LYMPHOCYTES 8.4 % (15-50); MCH 31.5 pg (26.0-34.0); MCHC 34.5 g/dL (31.0-37.0); MCV 91.4 fL (80.0-100.0); MEAN PLATELET VOLUME 10.3 fL (7.4-10.4); NEUTROPHILS 71.1 % (40-80); PLATELET COUNT 210 10x3/uL (130-400); RBC 3.71 10x6/uL (4.20-6.10); RDW 14.2 % (11.5-14.5)
--- NOTE | 2019-04-22 18:14 | NUR ---
PT REMAINS WITHOUT CHANGE.URINE TO LAB ORDERED. FALL PREVENTION REMAINS IN PLACE.CONT PLAN OF CARE
[2019-04-22 18:24] LABS: WBC 2.9 10x3/uL (4.8-10.8)
[2019-04-22 18:26] LABS: APPEARANCE CLEAR (CLEAR); BILIRUBIN NEGATIVE (NEGATIVE); COLOR YELLOW (YELLOW); GLUCOSE NEGATIVE (NEGATIVE); KETONE SMALL mg/dL (NEGATIVE); NITRITE NEGATIVE (NEGATIVE); PROTEIN NEGATIVE (NEGATIVE); UROBILINOGEN NORMAL (NORMAL)
[2019-04-22 20:34] VITALS: BP 112/65
[2019-04-23 01:19] VITALS: BP 115/78
--- NOTE | 2019-04-23 02:55 | NUR ---
I have reviewed this patient and I concur with the Shift Assessment completed by the Licensed Practical Nurse today this shift.
[2019-04-23 05:03] VITALS: BP 125/54
[2019-04-23 05:11] LABS: BASOPHILS 0.3 % (0-2); EOSINOPHILS 0.3 % (0-7); HEMATOCRIT 34.1 % (42.0-54.0); HEMOGLOBIN 11.8 g/dL (13.5-17.5); IMMATURE GRANULOCYTES 4.4 % (0-5); LYMPHOCYTES 4.2 % (15-50); MCH 31.2 pg (26.0-34.0); MCHC 34.6 g/dL (31.0-37.0); MCV 90.2 fL (80.0-100.0); MEAN PLATELET VOLUME 10.5 fL (7.4-10.4); MONOCYTES 16.9 % (2-11); NEUTROPHILS 73.9 % (40-80); PLATELET COUNT 228 10x3/uL (130-400); RBC 3.78 10x6/uL (4.20-6.10); RDW 14.4 % (11.5-14.5); WBC 3.6 10x3/uL (4.8-10.8)
[2019-04-23 05:32] LABS: CALC OSMOLALITY 272 mosm/kg (275-300); CALCIUM 8.3 mg/dL (8.5-10.1); CARBON DIOXIDE 19.8 mmol/L (21.0-32.0); CHLORIDE - SERUM 101 mmol/L (98-107); GLUCOSE 103 mg/dL (74-106); PHOSPHOROUS 3.3 mg/dL (2.5-4.9); SODIUM 135 mmol/L (136-145); UREA NITROGEN 22 mg/dL (7-18)
[2019-04-23 05:55] LABS: CREATININE - SERUM 0.8 mg/dL (0.6-1.3); MAGNESIUM - SERUM 1.4 mg/dL (1.8-2.4); POTASSIUM - SERUM 5.2 mmol/L (3.5-5.1); eGFR NON AFRICAN AMERICAN > 90 mL/min (90-120)
--- NOTE | 2019-04-23 07:00 | NUR ---
GETTING REPORT PT SHORT OF BREATH, HEART RATE 136 UNCONTROLLED A FIB PER OCULAR CARE TECHNICIAN. PAGED DENILSON LEO WITH DR PRINCE RECIEVED ORDERS. CHARLES NOTIFED AND RECIEVED ORDERS FROM DR RAMON TO MOVE PT TO MED II. RESPITATORY PAGED CLAY AND NOTIFED. INCREASED TO 4L NC. THEN PUT ON BIPAP.
[2019-04-23 08:58] LABS: CKMB 10.8 U/L (0.0-3.6); CREATINE KINASE 169 UL (21-232)
[2019-04-23 09:03] LABS: TROPONIN-I 0.862 ng/mL (0.000-0.060)
--- NOTE | 2019-04-23 13:21 | NUR ---
OFF BIPAP WITH 02 SAT 95% ON 3L NC. TELEMETRY ST 013. WILL CONT. PLAN OF CARE.
--- NOTE | 2019-04-23 13:23 | NUR ---
OFF BIPAP WITH 02 SATS 95% ON 3L NC. TELEMETRY ST 103. WILL CONT. PLAN OF CARE.
[2019-04-23 14:09] LABS: CKMB 10.3 U/L (0.0-3.6); CREATINE KINASE 156 UL (21-232)
[2019-04-23 14:12] LABS: TROPONIN-I 0.893 ng/mL (0.000-0.060)
[2019-04-23 15:09] VITALS: BP 126/85
[2019-04-23 18:26] VITALS: BP 144/92
--- NOTE | 2019-04-23 19:04 | NUR ---
RECEIVED BEDSIDE REPORT. PATIENT IS ALERT AND ORIENTED, RESTING COMFORTABLY IN BED. RESPIRATION ARE EVEN AND UNLABORED NO S/S OF DISTRESS. NO C/O PAIN. NEEDS MET. CALL LIGHT WITHIN REACH. WILL CPOC.
[2019-04-23 20:00] VITALS: BP 144/92
[2019-04-23 20:00] LABS: CKMB 9.6 U/L (0.0-3.6); CREATINE KINASE 141 UL (21-232)
[2019-04-23 20:03] LABS: TROPONIN-I 1.044 ng/mL (0.000-0.060)
[2019-04-24] VITALS (7 sets, daily range): BP systolic 93–130; BP diastolic 54–83
[2019-04-24 04:24] LABS: BASOPHILS 0.3 % (0-2); EOSINOPHILS 0 % (0-7); HEMATOCRIT 34.6 % (42.0-54.0); HEMOGLOBIN 11.9 g/dL (13.5-17.5); IMMATURE GRANULOCYTES 4.6 % (0-5); LYMPHOCYTES 5.7 % (15-50); MCH 30.9 pg (26.0-34.0); MCHC 34.4 g/dL (31.0-37.0); MCV 89.9 fL (80.0-100.0); MONOCYTES 17.2 % (2-11); NEUTROPHILS 72.2 % (40-80); PLATELET COUNT 230 10x3/uL (130-400); RBC 3.85 10x6/uL (4.20-6.10); RDW 14.4 % (11.5-14.5); WBC 3.9 10x3/uL (4.8-10.8)
[2019-04-24 04:42] LABS: CALC OSMOLALITY 269 mosm/kg (275-300); CALCIUM 8.8 mg/dL (8.5-10.1); CARBON DIOXIDE 20.9 mmol/L (21.0-32.0); CHLORIDE - SERUM 101 mmol/L (98-107); CREATININE - SERUM 0.9 mg/dL (0.6-1.3); GLUCOSE 85 mg/dL (74-106); MAGNESIUM - SERUM 1.3 mg/dL (1.8-2.4); PHOSPHOROUS 2.8 mg/dL (2.5-4.9); POTASSIUM - SERUM 4.8 mmol/L (3.5-5.1); SODIUM 134 mmol/L (136-145); UREA NITROGEN 21 mg/dL (7-18); eGFR NON AFRICAN AMERICAN 87 mL/min (90-120)
--- NOTE | 2019-04-24 07:15 | NUR ---
RECEIVED PT IN BED EYES CLOSED RESP UNLABORED SKIN W/D NAD NOTED
--- NOTE | 2019-04-24 12:18 | MORECARE ---
CASE MANAGEMENT DISCHARGE SUMMARY PATIENT: ED VEGA UNIT: [id number] ADM DATE: 04/21/19 AGE: 78 : 42 SEX: M ROOM/BED: D.2118 AUTHOR: MAGDI GALAVIZ PHYSICIAN: REFERRING PHYSICIAN: JUAN C RAMON MD DATE OF SERVICE: 04/24/19 Discharge Plan Patient Name: ED VEGA [facility] [facility] 1940 Planned Disposition: Anticipated Discharge Date: Discharge Date: Expected LOS: Initial Reviewer: [email or web address] Initial Review Date: 04/24/2019 Generated: 04/24/19 1:18 pm DCPIA - Discharge Planning Initial Assessment Updated by [email or web address]: Leigh Francisco on 04/24/19 12:17 pm * Is the patient Alert and Oriented? Yes * PCP CLOUD * Preadmission Environment Home Alone * ADLs Independent * Other Equipment WALKER, 02 * List name and contact numbers for known caregivers / representatives who currently or will assist patient after discharge: TREVON CUEVA, * Community resources currently utilized None * Additional services required to return to the preadmission environment? Yes * Can the patient safely return to the preadmission environment? No * Has this patient been hospitalized within the prior 30 days at any hospital? No Patient Name: ED VEGA Page [id number] at 1218 All edits/amendments must be made on the electronic document DICTATION DATE: 04/24/191217 DISTRICT MEDICAL EXAMINER: ALLEN 04/24/19 1218 RPT#: [id number] DC DATE: STATUS: ADM IN [facility] [address] [place] [address] END OF REPORT
--- NOTE | 2019-04-24 12:25 | MORECARE ---
CASE MANAGEMENT DISCHARGE SUMMARY PATIENT: ED VEGA UNIT: [id number] ADM DATE: 04/21/19 AGE: 78 : 42 SEX: M ROOM/BED: D.1398 AUTHOR: MAGDI GALAVIZ PHYSICIAN: REFERRING PHYSICIAN: JUAN C RAMON MD DATE OF SERVICE: 04/24/19 Discharge Plan Patient Name: ED VEGA Facility: [facility]:[place] : 1940 Planned Disposition: Anticipated Discharge Date: Discharge Date: Expected LOS: Initial Reviewer: [email or web address] Initial Review Date: 04/24/2019 Generated: 04/24/19 1:25 pm Comments DCP- Discharge Planning Updated by [id number]: Leigh Francisco on 04/24/19 11:[address] Patient Name: ED VEGA Admission Status: ER Accout number: [id number] Admission Date: 04-21-2019 : 1940 Admission Diagnosis: Attending: JUAN C RAMON Current LOS: 3 Anticipated DC Date: Planned Disposition: Primary Insurance: [employer] MEDICARE ADV Discharge Planning Comments: CM MET WITH PATIENT AND HIS SON ANAY TODAY ABOUT POSSIBLE DC PLANNING/NEEDS. SON STATES UNSURE OF ALL NEEDS AT THIS TIME BUT STATES HIS DAD WILL NEED SOME REHAB BECUASE HE HAS NOT BEEN AMBULATING. CM WILL FOLLOW AND ASSIST. Raw Silk Grader: Leigh Francisco DCPIA - Discharge Planning Initial Assessment Updated by [id number]: Leigh Francisco on 04/24/19 12:17 pm * Is the patient Alert and Oriented? Yes * PCP CLOUD * Preadmission Environment Home Alone * ADLs Independent * Other Equipment WALKER, 02 * List name and contact numbers for known caregivers / representatives who currently or will assist patient after discharge: TREVON CUEVA, * Community resources currently utilized None * Additional services required to return to the preadmission environment? Yes * Can the patient safely return to the preadmission environment? No * Has this patient been hospitalized within the prior 30 days at any hospital? No Last DP export: 04/24/19 11:18 Patient Name: ED VEGA Page 70885 at 1225 All edits/amendments must be made on the electronic document DICTATION DATE: 04/24/191224 CRM CAMPAIGN MANAGER: ALLEN 04/24/191224 RPT#: [id number] DC DATE: STATUS: ADM IN [facility] [address] [place] [address] END OF REPORT
--- NOTE | 2019-04-24 12:28 | NUR ---
Nutrition Follow-up: Pt reports appetite stable but son reports pt ate more this morning than he has been (~50% per record). Does not want Ensure/Boost. Noted ST eval ordered. Diet: Cardiac PO intake: 20-50% Wt: 165# Last BM: 04/24 Labs noted: Na 134, Mg 1.3 Meds noted: Megace, Miralax, MagOx -Continue current diet as tolerated. -Offer nutrition supplements. -[place] food preferences within diet restrictions. -RD following.
--- NOTE | 2019-04-24 19:21 | NUR ---
RECEIVED BEDSIDE REPORT. PATIENT IS ALERT AND ORIENTED, RESTING COMFORTABLY IN BED. PATIENT WAS PLACED ON BIPAP BY RT PER ORDERS. NO S/S OF DISTRESS. NO C/O PAIN. NEEDS MET. CALL LIGHT WITHIN REACH. WILL CPOC.
[2019-04-25 04:00] VITALS: BP 142/70
[2019-04-25 04:31] LABS: BASOPHILS 0.3 % (0-2); EOSINOPHILS 0.6 % (0-7); HEMATOCRIT 30.6 % (42.0-54.0); HEMOGLOBIN 11.1 g/dL (13.5-17.5); IMMATURE GRANULOCYTES 7.4 % (0-5); LYMPHOCYTES 8.7 % (15-50); MCH 32.6 pg (26.0-34.0); MCHC 36.3 g/dL (31.0-37.0); MONOCYTES 18.4 % (2-11); NEUTROPHILS 64.6 % (40-80); PLATELET COUNT 198 10x3/uL (130-400); RDW 14.1 % (11.5-14.5); WBC 3.1 10x3/uL (4.8-10.8)
[2019-04-25 04:58] LABS: CALCIUM 8.8 mg/dL (8.5-10.1); CHLORIDE - SERUM 101 mmol/L (98-107); CREATININE - SERUM 0.9 mg/dL (0.6-1.3); GLUCOSE 94 mg/dL (74-106); MAGNESIUM - SERUM 1.3 mg/dL (1.8-2.4); POTASSIUM - SERUM 4.1 mmol/L (3.5-5.1); SODIUM 132 mmol/L (136-145); eGFR NON AFRICAN AMERICAN 87 mL/min (90-120)
[2019-04-25 05:07] LABS: CALC OSMOLALITY 270 mosm/kg (275-300); CARBON DIOXIDE 26.3 mmol/L (21.0-32.0); UREA NITROGEN 30 mg/dL (7-18)
--- NOTE | 2019-04-25 07:15 | NUR ---
RECEIVED PT IN BED EYES CLOSED RESP UNLABORED SKIN W/D NAD NOTED AT THIS TIME
[2019-04-25 09:05] VITALS: BP 120/75
--- NOTE | 2019-04-25 12:00 | NUR ---
Rehab Note- Acute Inpatient Rehab prescreen order received. The patient has [employer] insurance and will require a PreAuth prior to an acute inpatient rehab stay. Will begin the PreAuth process. Thank you for this referral! Myranda Luong RN Clinical Liaison, [facility] Rehab
--- NOTE | 2019-04-25 12:18 | NUR ---
Nutrition Follow-up: Pt reports that he is working on improving PO intake. Per record, ~25% of breakfast eaten this AM. States that he has lost wt over the last ~3 mos 2/2 cancer dx/tx; reports previously weighing 180#. Diet: Cardiac PO intake: 34% avg x 7 meals Wt: 165# Last BM: 04/24 per chart Labs noted: Mg 1.3, Na 132 Meds noted: Lasix, Megace, Miralax, Mag Sulfate -Pt severe malnutrition of chronic illness 2/2 lung cancer AEB: 1. <=75% intake of est energy needs for >=1 month. 2. wt loss of >7.5% in 3 mos. 3. subcutaneous fat loss; fluid accumulation. -Continue current diet as tolerated. -Offer nutrition supplements. -[place] food preferences within diet restrictions. -RD following.
--- NOTE | 2019-04-25 12:28 | NUR ---
Pt has a reddened area on his back that is due to radiation treatments. Aquaphor ointment is being applied daily. Wound care will monitor as needed.
[2019-04-25 12:59] VITALS: BP 90/57
--- NOTE | 2019-04-25 14:10 | NUR ---
Rehab Note- PreAuth initiated & clinicals faxed into [facility] on behalf of [facility]. Will await a determination for a possible inpatient acute rehab stay. Will follow at this time. Thank you for this referral! Myranda Luong RN Clinical Liaison, [facility] Rehab
[2019-04-25 18:01] VITALS: BP 118/64
--- NOTE | 2019-04-25 19:21 | NUR ---
RECEIVED BEDSIDE REPORT. PATIENT IS ALERT AND ORIENTED, SITTING UP IN CHAIR. PATIENT REMAINS ON 2L NC, RESPIRATIONS ARE EVEN AND UNLABORED. NO S/S OF DISTRESS. NO C/O PAIN. NEEDS MET. CALL LIGHT WITHIN REACH. WILL CPOC.
[2019-04-25 20:00] VITALS: BP 114/55
[2019-04-26] VITALS: BP 152/68
[2019-04-26 04:00] VITALS: BP 115/56
[2019-04-26 05:01] LABS: BASOPHILS 0.7 % (0-2); EOSINOPHILS 0.7 % (0-7); HEMATOCRIT 33.3 % (42.0-54.0); HEMOGLOBIN 11.2 g/dL (13.5-17.5); IMMATURE GRANULOCYTES 8.6 % (0-5); LYMPHOCYTES 13.8 % (15-50); MCHC 33.6 g/dL (31.0-37.0); MCV 92.2 fL (80.0-100.0); MEAN PLATELET VOLUME 10.7 fL (7.4-10.4); MONOCYTES 20.1 % (2-11); NEUTROPHILS 56.1 % (40-80); PLATELET COUNT 221 10x3/uL (130-400); RBC 3.61 10x6/uL (4.20-6.10); RDW 14.3 % (11.5-14.5); WBC 2.7 10x3/uL (4.8-10.8)
[2019-04-26 05:11] LABS: CALC OSMOLALITY 279 mosm/kg (275-300); CALCIUM 8.9 mg/dL (8.5-10.1); CHLORIDE - SERUM 102 mmol/L (98-107); CREATININE - SERUM 0.9 mg/dL (0.6-1.3); GLUCOSE 98 mg/dL (74-106); MAGNESIUM - SERUM 1.7 mg/dL (1.8-2.4); PHOSPHOROUS 3.6 mg/dL (2.5-4.9); POTASSIUM - SERUM 4.5 mmol/L (3.5-5.1); SODIUM 136 mmol/L (136-145); UREA NITROGEN 34 mg/dL (7-18); eGFR NON AFRICAN AMERICAN 87 mL/min (90-120)
--- NOTE | 2019-04-26 07:53 | NUR ---
C/O BLADDER BEING FULL AND PAINFULL. MCMULLEN CATH INSERTED WITH 1500CC URINE OP, RETENTION. WILL MONITOR.
--- NOTE | 2019-04-26 08:59 | NUR ---
UP AMBULATING HALLWAT WITH PT ASSIST.
--- NOTE | 2019-04-26 09:01 | NUR ---
TELEMETRY CAF RESP UL ON 02 3L NC. UP AMBULATING WITH PT ASSIST. WILL CONT. PLAN OF CARE.
[2019-04-26 09:20] VITALS: BP 124/82
--- NOTE | 2019-04-26 09:51 | NUR ---
DRSG CHANGED TO BACK.
--- NOTE | 2019-04-26 12:03 | NUR ---
OT NOTE: PT UP IN CHAIR; STATED THAT HE HAD AMBULATED WITH P.T EARLIER THIS AM AND FELT MUCH BETTER. STATED THAT HE GOT A CATHATER LAST NIGHT AND THAT ALSO MADE HIM FEEL BETTER. ABLE TO PERFORM SIT TO STAND AND TRANSFERS WITH CGA AND USE OF WALKER. PT REMAINS WEAK AND WOULD BENEFIT FROM IP REHAB PRIOR TO DC HOME. ELEANOR LARSEN, OTR/L
[2019-04-26 14:37] VITALS: BP 99/60
[2019-04-26 16:20] VITALS: BP 97/48
--- NOTE | 2019-04-26 19:19 | NUR ---
RECIEVED BEDSIDE SHIFT REPORT. ALERT AND ORIENTED X4. UP WITH ASSIST. O2@ 1 LITERS PER N/C IN PLACE. IV TO RIGHT WRIST SL.. TELEMETRY IN PLACE. DSG TO BACK CDI. F/C INTACT WITH CLEAR YELLOW URINE DRAINING TO BEDSIDE DRAINAGE BAG. DENIES ANY NEEDS.
[2019-04-26 20:00] VITALS: BP 110/56
[2019-04-27] VITALS (7 sets, daily range): BP systolic 82–170; BP diastolic 48–65
[2019-04-27 04:37] LABS: HEMATOCRIT 29.4 % (42.0-54.0); HEMOGLOBIN 9.9 g/dL (13.5-17.5); MCHC 33.7 g/dL (31.0-37.0); MCV 92.2 fL (80.0-100.0); MEAN PLATELET VOLUME 10.2 fL (7.4-10.4); PLATELET COUNT 183 10x3/uL (130-400); RBC 3.19 10x6/uL (4.20-6.10); RDW 14.1 % (11.5-14.5); WBC 2.5 10x3/uL (4.8-10.8)
[2019-04-27 04:46] LABS: CALC OSMOLALITY 281 mosm/kg (275-300); CALCIUM 8.6 mg/dL (8.5-10.1); CARBON DIOXIDE 32.4 mmol/L (21.0-32.0); CHLORIDE - SERUM 104 mmol/L (98-107); CREATININE - SERUM 0.8 mg/dL (0.6-1.3); GLUCOSE 95 mg/dL (74-106); MAGNESIUM - SERUM 1.6 mg/dL (1.8-2.4); PHOSPHOROUS 3.3 mg/dL (2.5-4.9); POTASSIUM - SERUM 4.3 mmol/L (3.5-5.1); SODIUM 138 mmol/L (136-145); UREA NITROGEN 29 mg/dL (7-18); eGFR NON AFRICAN AMERICAN > 90 mL/min (90-120)
[2019-04-27 04:47] LABS: ANISOCYTOSIS OCC; LYMPHOCYTES 12 % (15-50); MONOCYTES 24 % (2-11); NEUTROPHILS 49 % (40-80); PLATELET ESTIMATE NORMAL
--- NOTE | 2019-04-27 09:25 | NUR ---
TELEMETRY SR. AMBULATES HALLWAY WITH PT ASSIST.
--- NOTE | 2019-04-27 13:45 | NUR ---
URINE SPECIMEN COLLECTED AND TAKEN TO LAB.. WILL MONITOR.
--- NOTE | 2019-04-27 20:16 | NUR ---
RECIEVED BEDSIDE SHIFT REPORT. ALERT AND ORIENTED X4. UP WITH ASSIST. O2@ 1 LITER PER N/C. F/C INTACT WITH CLEAR YELLOW URINE DRAINING TO BEDSIDE DRAINAGE SYSTEM. TELEMETRY IN PLACE. DENIES ANY NEEDS AT THIS TIME.
[2019-04-28 04:38] VITALS: BP 119/68
--- NOTE | 2019-04-28 06:28 | NUR ---
IV INFILTRATED AND RESTARTED 20 GA TO POSTERIOR LEFT WRIST ATTEMPTS X2.
--- NOTE | 2019-04-28 07:53 | NUR ---
ALER AND ORIENTED. TELEMERTY SHOWS SR 70. SL TO RIGHT WRIST. MCMULLEN CATH TO BEDSIDE DRAINAGE. DRSG TO UPPER BACK DRY AND INTACT. DENIES ANY NEEDS. 02 AT 1 L/M PER NC. WILL MONITOR
[2019-04-28 09:25] VITALS: BP 105/69
[2019-04-28 09:59] LABS: CALC OSMOLALITY 278 mosm/kg (275-300); CALCIUM 8.1 mg/dL (8.5-10.1); CARBON DIOXIDE 32.4 mmol/L (21.0-32.0); CHLORIDE - SERUM 102 mmol/L (98-107); CREATININE - SERUM 0.7 mg/dL (0.6-1.3); GLUCOSE 104 mg/dL (74-106); SODIUM 138 mmol/L (136-145); eGFR NON AFRICAN AMERICAN > 90 mL/min (90-120)
[2019-04-28 10:00] LABS: UREA NITROGEN 21 mg/dL (7-18)
[2019-04-28 10:02] LABS: BASOPHILS 0.8 % (0-2); EOSINOPHILS 0.8 % (0-7); HEMOGLOBIN 10.2 g/dL (13.5-17.5); IMMATURE GRANULOCYTES 6.8 % (0-5); LYMPHOCYTES 11.2 % (15-50); MCH 30.4 pg (26.0-34.0); MCHC 32.9 g/dL (31.0-37.0); MCV 92.5 fL (80.0-100.0); MEAN PLATELET VOLUME 10.5 fL (7.4-10.4); MONOCYTES 16.9 % (2-11); NEUTROPHILS 63.5 % (40-80); PLATELET COUNT 180 10x3/uL (130-400); RBC 3.35 10x6/uL (4.20-6.10); RDW 14.1 % (11.5-14.5); WBC 2.5 10x3/uL (4.8-10.8)
--- NOTE | 2019-04-28 11:33 | NUR ---
REhab Note- Spoke with Valentina Veronica with [facility] on behalf of [facility]. Received authorization for inpatient acute rehab stay, Auth #[id number], Review date of clinicals is on 05/05. Spoke with YOLANDA Zeng. Will accept the patient when medically stable and ready for discharge from the acute hospital. Thank you for this referral! Myranda Luong RN Clinical Liaison, [facility] Rehab
[2019-04-28 12:00] VITALS: BP 109/58
--- NOTE | 2019-04-28 12:07 | MORECARE ---
CASE MANAGEMENT DISCHARGE SUMMARY PATIENT: ED VEGA UNIT: [id number] ADM DATE: 04/21/19 AGE: 78 : 42 SEX: M ROOM/BED: D.9238 AUTHOR: MAGDI GALAVIZ PHYSICIAN: REFERRING PHYSICIAN: JUAN C RAMON MD DATE OF SERVICE: 04/28/19 Discharge Plan Patient Name: ED VEGA Facility: [facility]:[employer] : 1940 Planned Disposition: Inpatient Rehab Anticipated Discharge Date: 04/28/19 Discharge Date: Expected LOS: 7 Initial Reviewer: [email or web address] Initial Review Date: 04/24/2019 Generated: 04/28/19 1:06 pm Comments DCP- Discharge Planning Updated by [email or web address]: Leigh Francisco on 04/24/19 11:[address] Patient Name: ED VEGA Admission Status: ER Accout number: [id number] Admission Date: 04-21-2019 : 1940 Admission Diagnosis: Attending: JUAN C RAMON Current LOS: 3 Anticipated DC Date: Planned Disposition: Primary Insurance: [employer] MEDICARE ADV Discharge Planning Comments: CM MET WITH PATIENT AND HIS SON ANAY TODAY ABOUT POSSIBLE DC PLANNING/NEEDS. SON STATES UNSURE OF ALL NEEDS AT THIS TIME BUT STATES HIS DAD WILL NEED SOME REHAB BECUASE HE HAS NOT BEEN AMBULATING. CM WILL FOLLOW AND ASSIST. Senior Systems Administrator: Leigh Francisco DCPIA - Discharge Planning Initial Assessment Updated by [email or web address]: Leigh Francisco on 04/24/19 12:17 pm * Is the patient Alert and Oriented? Yes * PCP CLOUD * Preadmission Environment Home Alone * ADLs Independent * Other Equipment WALKER, 02 * List name and contact numbers for known caregivers / representatives who currently or will assist patient after discharge: TREVON CUEVA, * Community resources currently utilized None * Additional services required to return to the preadmission environment? Yes * Can the patient safely return to the preadmission environment? No * Has this patient been hospitalized within the prior 30 days at any hospital? No Coverage Notice Reviewer: [id number] Pedro Stephen Notice Issued Date-Time: 04/28/2019 11:50 Notice Type: IM Discharge Notice Notice Delivered To: Patient Relationship to Patient: Filenet Architect Name: Delivery Method: HAND - Hand Delivered Krissy Days: Prior Verbal Notification: Recipient Understood Notice: Yes Recipient Signature: Yes Med Rec Note Co-signed by Attending: Coverage Notice Comment: Last DP export: 04/24/19 11:25 Patient Name: ED VEGA Page 23485 at 1207 All edits/amendments must be made on the electronic document DICTATION DATE: 04/28/191205 SOCIAL SCIENTIST: ALLEN 04/28/191205 RPT#: [id number] DC DATE: STATUS: ADM IN [facility] [address] [place] [address] END OF REPORT
--- NOTE | 2019-04-28 12:42 | MORECARE ---
CASE MANAGEMENT DISCHARGE SUMMARY PATIENT: ED VEGA UNIT: [id number] ADM DATE: 04/21/19 AGE: 78 : 42 SEX: M ROOM/BED: D.9188 AUTHOR: MAGDI GALAVIZ PHYSICIAN: REFERRING PHYSICIAN: JUAN C RAMON MD DATE OF SERVICE: 04/28/19 Discharge Plan Patient Name: ED VEGA [facility] [facility] 1940 Planned Disposition: Inpatient Rehab Anticipated Discharge Date: 04/28/19 Discharge Date: Expected LOS: 7 Initial Reviewer: [id number] Initial Review Date: 04/24/2019 Generated: 04/28/19 1:41 pm Comments DCP- Discharge Planning Updated by [email or web address]: Rowdy Stephen on 04/28/19 11:[address] Patient Name: ED VEGA Encounter No: [id number] : 1940 Primary Insurance: [employer] MEDICARE ADV Anticipated DC Date: 04-28-2019 Planned Disposition: Inpatient Rehab External Planned Provider: [facility] DCP follow-up note: CM SPOKE TO [facility] OF INPATIENT REH[facility], THEY PLAN TO ACCEPT PT TODAY FOR REHAB IF STABLE FOR DISCHARGE; THEY HAVE RECEIVED INSURANCE AUTHORIZATION FOR INPATIENT REHAB. PT NOTIFIED, IN AGREEMENT WITH DISCHARGE TO INPATIENT REHAB. IMPORTANT MESSAGE FROM MEDICARE PROVIDED AND EXPLAINED. PT'S SON ARRIVED CM LEAVING, PT ASKED CM EXPLAIN REHAB ACCEPTANCE AND IMPORTANT MESSAGE TO HIS SON ALSO. CM EXPLAINED REQUESTED, PT'S SON ALSO IN AGREEMENT WITH DISCHARGE PLAN AND HAD NO FURHTER QUESTIONS FOR CM. CM NOTIFIED AHMET PRO. [facility] INPATIENT [facility] TO CONTACT MED 2 NURSE WITH ROOM NUMBER WHEN READY TO ACCEPT PT AND NURSE REPORT. Rowdy Stephen, CASE FROYLAN DCP- Discharge Planning Updated by [id number]: Leigh Francisco on 04/24/19 11:[address] Patient Name: ED VEGA Admission Status: ER Accout number: [id number] Admission Date: 04-21-2019 : 1940 Admission Diagnosis: Attending: JUAN C RAMON Current LOS: 3 Anticipated DC Date: Planned Disposition: Primary Insurance: [employer] MEDICARE ADV Discharge Planning Comments: CM MET WITH PATIENT AND HIS SON ANAY TODAY ABOUT POSSIBLE DC PLANNING/NEEDS. SON STATES UNSURE OF ALL NEEDS AT THIS TIME BUT STATES HIS DAD WILL NEED SOME REHAB BECUASE HE HAS NOT BEEN AMBULATING. CM WILL FOLLOW AND ASSIST. Manufacturing Accountant: Leigh Francisco DCPIA - Discharge Planning Initial Assessment Updated by [id number]: Leigh Francisco on 04/24/19 12:17 pm * Is the patient Alert and Oriented? Yes * PCP CLOUD * Preadmission Environment Home Alone * ADLs Independent * Other Equipment WALKER, 02 * List name and contact numbers for known caregivers / representatives who currently or will assist patient after discharge: ANAY, SON, * Community resources currently utilized None * Additional services required to return to the preadmission environment? Yes * Can the patient safely return to the preadmission environment? No * Has this patient been hospitalized within the prior 30 days at any hospital? No Coverage Notice Reviewer: [id number] Pedro Stephen Notice Issued Date-Time: 04/28/2019 11:50 Notice Type: IM Discharge Notice Notice Delivered To: Patient Relationship to Patient: Long Lines Operator Name: Delivery Method: HAND - Hand Delivered Krissy Days: Prior Verbal Notification: Recipient Understood Notice: Yes Recipient Signature: Yes Med Rec Note Co-signed by Attending: Coverage Notice Comment: Last DP export: 04/28/19 11:07 Patient Name: ED VEGA Page 64103 at 1242 All edits/amendments must be made on the electronic document DICTATION DATE: 04/28/19 124 DECKHAND MAINTENANCE: ALLEN 04/28/19 1241 RPT#: [id number] DC DATE: STATUS: ADM IN [facility] [address] [place] [address] END OF REPORT
--- NOTE | 2019-04-28 13:45 | NUR ---
OT NOTE: PT DOING BETTER TODAY. STATES THAT HE DOES NOT USE WALKER AT HOME, HOWEVER, SUGGESTED THAT PT CONTINUE TO USE AT THIS TIME FOR SAFETY, HIS BALANCE IS MUCH BETTER WITH UE SUPPORT. IN ROOM AMB WITH WALKER AND CGA; AMB TO BATHROOM WITH WALKER AND CGA; TOILETING WITH MIN ASSIST; ABLE TO MARKO GOWN WITH SET UP BUT MIN ASSIST WITH LE DRESSING. SIMPLE GROOMING TASKS AND FEEDING WITH SET UP. STATIC STANDING BALANCE IS FAIR+/GOOD-; MIN/CGA WITH DYNAMIC ACTIVITIES WITH WALKER INCLUDING BENDING AND REACHING FOR ITEMS. PT WANTED TO SIT UP IN CHAIR FOLLOWING TMT. RECOMMEND IP REHAB TO ALLOW PT TO RETURN HOME TO INDEP LIVING. ELEANOR LARSEN, OTR/L
[2019-04-28] MEDS ORDERED: IPRAT-ALBUT 0.5-3 ML INH (14:47)
[2019-04-28] MEDS ORDERED: FLOMAX0.4 MG PO (14:47)
[2019-04-28] MEDS ORDERED: ATROVENT 0.02%2.5 ML UPD (14:47)
[2019-04-28] MEDS ORDERED: AMIODARONE HCL200 MG PO (14:51)
[2019-04-28] MEDS ORDERED: LASIX40 MG PO (14:52)
[2019-04-28] MEDS ORDERED: MIRALAX17 GM PO (14:53)
[2019-04-28] MEDS ORDERED: AQUAPHOR HEALIN50 GM TOPICAL (14:53)
[2019-04-28] MEDS ORDERED: PULMICORT0.5 MG/21 UPD (14:53)
[2019-04-28] MEDS ORDERED: LEVAQUIN750 MG PO (14:59)
--- NOTE | 2019-04-28 16:35 | NUR ---
OT NOTE: PT COMPLETED UE AROM EXS. PT COMPLETED EOB SITTING WITH GM ACTIVITIES WITH SPV. PT COMPLETED HYGIENE TASKS WITH MIN A. THANK YOU, TAYLOR AGUERO
--- NOTE | 2019-04-28 16:52 | NUR ---
UPON ADMIT, HARESH REPORTS TO HAVING FLU SHOT. NO SHOT GIVEN AT DISCHARGE.
--- NOTE | 2019-04-28 17:11 | NUR ---
I CALLED SANIA LEO TO CLARIFY SOME ADDTIONAL MEDS FOR REHAB. NEW ORDERS PLACED ON DISCHARGE MEDICATION LIST.
[2019-04-28] MEDS ORDERED: MEGACE40 MG PO (17:13)
[2019-04-28] MEDS ORDERED: MAG-OX 400 MG400 MG PO (17:13)
[2019-04-28] MEDS ORDERED: FLORAJEN3 CAPS460 MG PO (17:13)
--- NOTE | 2019-04-28 17:40 | NUR ---
I have reviewed this patient and I concur with the Shift Assessment completed by the Licensed Practical Nurse today this shift.
--- NOTE | 2019-04-28 18:34 | NUR ---
AHMET AND SENT TO REHAB.
--- NOTE | 2019-04-29 11:38 | MORECARE ---
CASE MANAGEMENT DISCHARGE SUMMARY PATIENT: ED VEGA UNIT: [id number] ADM DATE: 04/21/19 AGE: 78 : 42 SEX: M ROOM/BED: D.2118 AUTHOR: MAGDI GALAVIZ PHYSICIAN: REFERRING PHYSICIAN: JUAN C RAMON MD DATE OF SERVICE: 04/29/19 Discharge Plan Patient Name: ED VEGA [facility] [facility] 1940 Planned Disposition: Inpatient Rehab Anticipated Discharge Date: 04/28/19 Discharge Date: 04/28/2019 Expected LOS: 7 Initial Reviewer: [id number] Initial Review Date: 04/24/2019 Generated: 04/29/19 12:38 pm DCP- Discharge Planning Updated by [id number]: Rowdy Stephen on 04/28/19 11:[address] Patient Name: ED VEGA Encounter No: [id number] : 1940 Primary Insurance: [employer] MEDICARE ADV Anticipated DC Date: 04-28-2019 Planned Disposition: Inpatient Rehab External Planned Provider: [facility] DCP follow-up note: CM SPOKE TO [facility]PATIENT [facility], THEY PLAN TO ACCEPT PT TODAY FOR REHAB IF STABLE FOR DISCHARGE; THEY HAVE RECEIVED INSURANCE AUTHORIZATION FOR INPATIENT REHAB. PT NOTIFIED, IN AGREEMENT WITH DISCHARGE TO INPATIENT REHAB. IMPORTANT MESSAGE FROM MEDICARE PROVIDED AND EXPLAINED. PT'S SON ARRIVED CM LEAVING, PT ASKED CM EXPLAIN REHAB ACCEPTANCE AND IMPORTANT MESSAGE TO HIS SON ALSO. CM EXPLAINED REQUESTED, PT'S SON ALSO IN AGREEMENT WITH DISCHARGE PLAN AND HAD NO FURHTER QUESTIONS FOR CM. CM NOTIFIED AHMET PRO. [facility] INPAT[facility] REH[facility] TO CONTACT MED 2 NURSE WITH ROOM NUMBER WHEN READY TO ACCEPT PT AND NURSE REPORT. TRENT Diallo DCP- Discharge Planning Updated by [id number]: Leigh Francisco on 04/24/19 11:[address] Patient Name: ED VEGA Admission Status: ER Accout number: [id number] Admission Date: 04-21-2019 : 1940 Admission Diagnosis: Attending: JUAN C RAMON Current LOS: 3 Anticipated DC Date: Planned Disposition: Primary Insurance: [employer] MEDICARE ADV Discharge Planning Comments: CM MET WITH PATIENT AND HIS SON ANAY TODAY ABOUT POSSIBLE DC PLANNING/NEEDS. SON STATES UNSURE OF ALL NEEDS AT THIS TIME BUT STATES HIS DAD WILL NEED SOME REHAB BECUASE HE HAS NOT BEEN AMBULATING. CM WILL FOLLOW AND ASSIST. School Aide: Leigh Francisco DCPIA - Discharge Planning Initial Assessment Updated by [id number]: Leigh Francisco on 04/24/19 12:17 pm * Is the patient Alert and Oriented? Yes * PCP CLOUD * Preadmission Environment Home Alone * ADLs Independent * Other Equipment WALKER, 02 * List name and contact numbers for known caregivers / representatives who currently or will assist patient after discharge: ANAY, SON, * Community resources currently utilized None * Additional services required to return to the preadmission environment? Yes * Can the patient safely return to the preadmission environment? No * Has this patient been hospitalized within the prior 30 days at any hospital? No Coverage Notice Reviewer: [id number] Pedro Stephen Notice Issued Date-Time: 04/28/2019 11:50 Notice Type: IM Discharge Notice Notice Delivered To: Patient Relationship to Patient: General Office Assistant Name: Delivery Method: HAND - Hand Delivered Krissy Days: Prior Verbal Notification: Recipient Understood Notice: Yes Recipient Signature: Yes Med Rec Note Co-signed by Attending: Coverage Notice Comment: Last DP export: 04/28/19 11:41 Patient Name: ED VEGA Page 08434 at 1138 All edits/amendments must be made on the electronic document DICTATION DATE: 04/29/191137 COLLECTOR: ALLEN 04/29/198 RPT#: [id number] DC DATE:04/28/19 STATUS: DIS IN [facility] [address] [place] [address] END OF REPORT
== END 2019-04-28 18:36 | DRG 177 ==
LOC: D.ER 17:37 → D.MS 20:45 → D.M2 20:45
PROVIDERS: Emergency Medicine; Family Medicine; Legal Medicine; ADMIT Internal Medicine Nephrology; ATTEND Internal Medicine Nephrology
DX: J15.6 Pneumonia due to other Gram-negative bacteria (principal); I21.A1 Myocardial infarction type 2; I50.33 Acute on chronic diastolic (congestive) heart failure; J96.01 Acute respiratory failure with hypoxia; C34.90 Malignant neoplasm of unspecified part of unspecified bronchus or lung; E87.1 Hypo-osmolality and hyponatremia; J98.11 Atelectasis; N17.9 Acute kidney failure, unspecified; D64.81 Anemia due to antineoplastic chemotherapy; I25.10 Atherosclerotic heart disease of native coronary artery without angina pectoris; I48.91 Unspecified atrial fibrillation; I11.0 Hypertensive heart disease with heart failure; J43.9 Emphysema, unspecified; E83.42 Hypomagnesemia; I08.1 Rheumatic disorders of both mitral and tricuspid valves

== ENCOUNTER 2019-04-28 17:15 | Inpatient (IN) | payer MEDICARE ==
[~2019-04-28] VITALS: Ht 177.8 cm; Wt 73.0 kg
[~2019-04-28 17:15] MED LIST changes: +AMIODARONE HCL200 MG PO; +AQUAPHOR HEALIN50 GM TOPICAL; +ATROVENT 0.02%2.5 ML UPD; +FLORAJEN3 CAPS460 MG PO; +IPRAT-ALBUT 0.5-3 ML INH; +LASIX40 MG PO; +LEVAQUIN750 MG PO; +MAG-OX 400 MG400 MG PO; +MEGACE40 MG PO; +MIRALAX17 GM PO; +PULMICORT0.5 MG/21 UPD
--- NOTE | 2019-04-28 19:15 | NUR ---
BEDSIDE REPORT COMPLETE. PT LYING IN BED WATCHING TV. DENIES ANY NEEDS OR PAIN. ORIENTATED TO ROOM, BATHROOM, REMOTE FUNCTIONS. VS STABLE. MCMULLEN PATENT FREE FROM KINKS. CONTINUES ON 2L VIA NC. CL IN REACH, FALL PRECAUTIONS IN PLACE. WILL CONTINUE TO MONITOR
[2019-04-28 21:00] VITALS: BP 91/64
[2019-04-28 23:26] VITALS: BP 91/64; BMI 23.1
--- NOTE | 2019-04-29 01:03 | NUR ---
QUIET HOURS. PT LYING IN BED ON RIGHT SIDE EYES CLOSED RESTING. RR EVEN AND UNLABORED. CL IN REACH
[2019-04-29 01:24] LABS: APPEARANCE HAZY (CLEAR); BILIRUBIN NEGATIVE (NEGATIVE); COLOR YELLOW (YELLOW); GLUCOSE NEGATIVE (NEGATIVE); KETONE NEGATIVE (NEGATIVE); NITRITE NEGATIVE (NEGATIVE); PROTEIN 1+ mg/dL (NEGATIVE); UROBILINOGEN NORMAL (NORMAL)
[2019-04-29 01:26] LABS: BACTERIA FEW /hpf (NEGATIVE); EPITHELIAL CELLS 0-5 /hpf (0-5); MUCUS <1+ /lpf (NONE SEEN); WHITE CELLS - URINE 0-5 /hpf (NEGATIVE)
--- NOTE | 2019-04-29 03:57 | NUR ---
PT LYING IN BED ON RIGHT SIDE EYES CLOSED RESTING. RR EVEN AND UNLABORED. WILL CONITNUE TO MONITOR
[2019-04-29 06:11] LABS: BASOPHILS 0.4 % (0-2); EOSINOPHILS 0.8 % (0-7); HEMATOCRIT 29.8 % (42.0-54.0); HEMOGLOBIN 9.9 g/dL (13.5-17.5); IMMATURE GRANULOCYTES 6.6 % (0-5); LYMPHOCYTES 12.5 % (15-50); MCH 30.5 pg (26.0-34.0); MCHC 33.2 g/dL (31.0-37.0); MCV 91.7 fL (80.0-100.0); MEAN PLATELET VOLUME 10.7 fL (7.4-10.4); MONOCYTES 17.5 % (2-11); NEUTROPHILS 62.2 % (40-80); PLATELET COUNT 177 10x3/uL (130-400); RBC 3.25 10x6/uL (4.20-6.10); RDW 13.9 % (11.5-14.5); WBC 2.6 10x3/uL (4.8-10.8)
[2019-04-29 06:22] LABS: CALC OSMOLALITY 282 mosm/kg (275-300); CALCIUM 8.3 mg/dL (8.5-10.1); CARBON DIOXIDE 33.7 mmol/L (21.0-32.0); CHLORIDE - SERUM 102 mmol/L (98-107); CREATININE - SERUM 0.7 mg/dL (0.6-1.3); GLUCOSE 96 mg/dL (74-106); MAGNESIUM - SERUM 1.5 mg/dL (1.8-2.4); POTASSIUM - SERUM 3.8 mmol/L (3.5-5.1); SODIUM 140 mmol/L (136-145); UREA NITROGEN 23 mg/dL (7-18); eGFR NON AFRICAN AMERICAN > 90 mL/min (90-120)
--- NOTE | 2019-04-29 06:58 | NUR ---
PT LYING IN BED ON RIGHT SIDE EYES CLOSED RESTING. RR EVEN AND UNLABORED. CONTINUES ON 2L VIA NC. CL IN REACH.
[2019-04-29 08:21] VITALS: BP 119/70
--- NOTE | 2019-04-29 10:26 | NUR ---
PATIENT ADMITTED TO REHAB FROM ACUTE FLOOR. DR. GOOD IS PATIENT PCP. DME AT HOME IS A WALKER AND O2. DISCHARGE PLANS ARE FOR PATIENT TO RETURN HOME WITH FAMILY. WILL CONTINUE TO FOLLOW WITH PATIENT.
[2019-04-29 13:15] VITALS: Ht 177.8 cm; Wt 73.0 kg
--- NOTE | 2019-04-29 19:20 | NUR ---
PT LYING IN BED WATCHING TV. CL IN REACH. NO DISTRESS NOTED. RESP EVEN AND UNLABORED. BED IN LOW SIDE RAILS X2. MCMULLEN INTACT. A/O X4. LUNGS CLEAR. BOWEL ACTIVE X4. WILL CONTINUE TO MONITOR.
[2019-04-29 21:05] VITALS: BP 89/55
--- NOTE | 2019-04-30 00:46 | NUR ---
I have reviewed this patient and I concur with the Shift Assessment completed by the Licensed Practical Nurse today this shift.
--- NOTE | 2019-04-30 02:45 | NUR ---
PT RESTING QUIETLY. CL IN REACH. NO DISTRESS NOTED. WCTM
[2019-04-30 07:04] LABS: BASOPHILS 0.3 % (0-2); EOSINOPHILS 0.6 % (0-7); HEMATOCRIT 29.7 % (42.0-54.0); HEMOGLOBIN 9.8 g/dL (13.5-17.5); IMMATURE GRANULOCYTES 5.6 % (0-5); LYMPHOCYTES 10.8 % (15-50); MCH 30.3 pg (26.0-34.0); MEAN PLATELET VOLUME 10.2 fL (7.4-10.4); MONOCYTES 16.4 % (2-11); NEUTROPHILS 66.3 % (40-80); PLATELET COUNT 173 10x3/uL (130-400); RBC 3.23 10x6/uL (4.20-6.10); RDW 14.1 % (11.5-14.5); WBC 3.2 10x3/uL (4.8-10.8)
[2019-04-30 07:21] LABS: CALC OSMOLALITY 276 mosm/kg (275-300); CALCIUM 8.4 mg/dL (8.5-10.1); CARBON DIOXIDE 34.8 mmol/L (21.0-32.0); CHLORIDE - SERUM 98 mmol/L (98-107); CREATININE - SERUM 0.8 mg/dL (0.6-1.3); GLUCOSE 93 mg/dL (74-106); POTASSIUM - SERUM 3.8 mmol/L (3.5-5.1); SODIUM 137 mmol/L (136-145); UREA NITROGEN 20 mg/dL (7-18); eGFR NON AFRICAN AMERICAN > 90 mL/min (90-120)
--- NOTE | 2019-04-30 08:00 | NUR ---
SHIFT ASSMT COMPLETED.
[2019-04-30 08:16] VITALS: BP 116/62
--- NOTE | 2019-04-30 16:00 | NUR ---
CONTINUE TO MONITOR.
--- NOTE | 2019-04-30 19:35 | NUR ---
PT LYING IN BED. CL IN REACH. RESP EVEN AND UNLABORED. LUNGS CLEAR. BOWEL ACTIVE X4. DENIES NEEDS AT THIS TIME. BED IN LOW SIDE RAILS X2. BLADDER TRAINING IN PROGRESS. WILL CONTINUE TO MONITOR.
[2019-04-30 21:20] VITALS: BP 94/48
--- NOTE | 2019-05-01 02:45 | NUR ---
RESTING QUIETLY. CL IN REACH. NO DISTRESS NOTED. WCTM
--- NOTE | 2019-05-01 04:24 | NUR ---
QUIET HOURS. PT LYING IN BED EYES CLOSED RESTING QUIETLY. RR EVEN AND LABORED. CL IN REACH
--- NOTE | 2019-05-01 04:26 | NUR ---
I have reviewed this patient and I concur with the Shift Assessment completed by the Licensed Practical Nurse today this shift.
--- NOTE | 2019-05-01 06:09 | NUR ---
BLADDER TRAINING COMPLETED. MCMULLEN CATH REMOVED. CATH INTACT. TOLERATED WELL. EMPTIED 1400 OUT OF MCMULLEN BAG. DRESSING CHANGE COMPLETED TO LEFT UPPER BACK. DENIES NEEDS. TM
[2019-05-01 08:00] VITALS: BP 114/60
--- NOTE | 2019-05-01 08:00 | NUR ---
SHIFT ASSMT COMPLETED.
--- NOTE | 2019-05-01 09:31 | NUR ---
NUTRITION F/U PT REPORTS HIS APPETITE IS SLOWLY IMPROVING. 50 TO 75% INTAKE RECENT MEALS. +BM RECORDED ON 04/30/19. WILL CONTINUE TO PROVIDE CURRENT DIET, ENCOURAGE PO INTAKE. RD FOLLOWING
--- NOTE | 2019-05-01 16:00 | NUR ---
WILL CONTINUE TO MONITOR.
--- NOTE | 2019-05-01 16:10 | NUR ---
SPOKE WITH .PLAN FOR SURGERY FOR CYSTOSCOPY WITH FC INSERTION.
--- NOTE | 2019-05-01 16:41 | NUR ---
FAMILY HER PERMITS SIGNED.
[2019-05-01 19:22] VITALS: BP 96/43
--- NOTE | 2019-05-01 20:05 | NUR ---
DUCK OPERATOR AND SURGERY NURSE RECIEVED PT AND TRANSFERRED TO SURGERY UNIT. CONSENTS SIGNED. NO PREOP MEDS REQUIRED DUE TO NO IV AND PT WILL RECIEVE LOCAL ANESTHIA AND BE AWAKE.
--- NOTE | 2019-05-01 20:53 | NUR ---
PT BACK FROM PROCEDURE. AWAKE AND ALERT X4. VITALS BP 104/59 PULSE 76, TEMP 98.1, PULSE OX 100% ON 2L. WCTM CL IN REACH
[2019-05-01 20:54] VITALS: BP 104/59
--- NOTE | 2019-05-02 02:30 | NUR ---
PT RESTING QUIETLY.CL IN REACH. NO DISTRESS NOTED. RESP EVEN AND UNLABORED. WCTM
--- NOTE | 2019-05-02 04:38 | NUR ---
I have reviewed this patient and I concur with the Shift Assessment completed by the Licensed Practical Nurse today this shift.
[2019-05-02 07:55] LABS: BASOPHILS 0.3 % (0-2); EOSINOPHILS 0.8 % (0-7); HEMATOCRIT 31.3 % (42.0-54.0); HEMOGLOBIN 10.4 g/dL (13.5-17.5); IMMATURE GRANULOCYTES 5.6 % (0-5); MCHC 33.2 g/dL (31.0-37.0); MCV 93.4 fL (80.0-100.0); MEAN PLATELET VOLUME 10.4 fL (7.4-10.4); NEUTROPHILS 71.3 % (40-80); RBC 3.35 10x6/uL (4.20-6.10); RDW 14.4 % (11.5-14.5); WBC 3.6 10x3/uL (4.8-10.8)
[2019-05-02 07:57] VITALS: BP 108/56
[2019-05-02 08:00] LABS: PLATELET COUNT 243 10x3/uL (130-400)
--- NOTE | 2019-05-02 08:01 | NUR ---
The patient is awake and alert, he is pleasant he has O2@@L/M, he has a esparza cath that is draining clear yellow urine. He denies needs at this time.
[2019-05-02 08:06] LABS: CALCIUM 8.5 mg/dL (8.5-10.1); CARBON DIOXIDE 35.1 mmol/L (21.0-32.0); CREATININE - SERUM 1.1 mg/dL (0.6-1.3); POTASSIUM - SERUM 4.1 mmol/L (3.5-5.1)
--- NOTE | 2019-05-02 08:49 | OP ---
PATIENT NAME: ED VEGA MEDICAL RECORD: [id number] :[birth year] LOCATION:[facility] ADMISSION DATE:04/28/19 SURGEON: RYAN GALVEZ MD DATE OF OPERATION: 05/01/2019 SURGEON: Ryan Galvez MD ANESTHESIA: Local anesthetic. June Pelayo CRNA. 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 PROCEDURE: Cystoscopy, Moore catheter insertion over a guidewire. FINDINGS: Obstructive bilateral lateral lobe hyperplasia of the prostate, no ureteral strictures. BLOOD LOSS: None. CLINICAL HISTORY: This is a 78-year-old male who has lung cancer for which he is getting chemotherapy by Dr. Bower. He is in rehabilitation to try to build up his muscle strength. He has an indwelling Moore catheter for urinary retention. This was removed earlier today and he has not been able to void. The nurses in the rehab unit have not been able to get a catheter back into him. Therefore, we are bringing him to the operating room to look under direct vision to get a catheter into the patient. His veins are very fragile and anesthesia could not get any IV access. He was given IM gentamicin 80 mg. Also, we gave him lidocaine jelly into the urethra after prepping and draping him. DESCRIPTION OF PROCEDURE: The patient was placed in lithotomy position. Lidocaine jelly was placed into the urethra after prepping and draping. The 21-Albanian cystoscope with 30-degree lens was used for visualization. No penile urethral strictures were seen. The prostatic lateral lobes were quite obstructive. With the scope, I managed to get into the bladder. There is no median lobe note. The wire was placed into the bladder and then the scope was removed. Over the wire, a 16-Albanian wyand[place] tip Moore catheter was placed into the bladder. Once the catheter was fully in the bladder, then the balloon was inflated with 10 cc of sterile water. The wire was then removed and the catheter was put to bag drainage. TRANSINT:[id number] Voice Confirmation ID: [id number] DOCUMENT ID: [id number] RYAN GALVEZ MD at 0849 CC: [id number] DICTATION DATE: 05/01/192033 DRAWING IN HAND: 05/02/19 0048 [facility] [place] [id number] [place] [address]
--- NOTE | 2019-05-02 09:49 | NUR ---
The patient is compliant with medications this am.
--- NOTE | 2019-05-02 11:02 | NUR ---
CARE TEAM MEETING: PATIENT AND SON ATTENDED MEETING. DISCHARGE PLANS ARE FOR PATIENT TO RETURN HOME TO CONTINUE WITH HIS CHEMO TREATMENT. WILL CONTINUE TO FOLLOW WITH PATIENT.
[2019-05-02 19:00] VITALS: BP 96/57
--- NOTE | 2019-05-02 19:12 | NUR ---
PT IS RESTING IN BED WITH EYES OPEN. ALERT AND ORIENTED X 3. MCMULLEN CATH IS PATENT AND DRAINING TO A GRAVITY BAG. DRESSING TO BACK IS CDI. REPORTED BY PREVIOUS SHIFT TO BE JUST CHANGED. O2 IS ON @ 2LPM PER NC. NO SOB NOTED. SR'S ARE UP X 2 IN BED. CALL LIGHT AND BEDSIDE TABLE ARE WITHIN EASY REACH.
--- NOTE | 2019-05-02 21:10 | NUR ---
PT RESTING IN BED WATCHING TV. NO NEEDS VOICED.
--- NOTE | 2019-05-03 01:10 | NUR ---
RESTING IN BED WITH EYES CLOSED.
--- NOTE | 2019-05-03 01:15 | NUR ---
I have reviewed this patient and I concur with the Shift Assessment completed by the Licensed Practical Nurse today this shift.
--- NOTE | 2019-05-03 05:10 | NUR ---
RESTING IN BED WITH EYES CLOSED.
[2019-05-03 07:46] VITALS: BP 98/60
--- NOTE | 2019-05-03 08:00 | NUR ---
AM MEDS GIVEN ORDERED.
--- NOTE | 2019-05-03 10:24 | NUR ---
PT IS DOING PHYSICAL THERAPY WITH PHYSICAL THERAPY STAFF.
--- NOTE | 2019-05-03 12:25 | NUR ---
PT IS EATING HIS LUNCH, CALL LIGHT IN REACH.
--- NOTE | 2019-05-03 14:21 | NUR ---
ASSISTED TO BATHROOM AND BACK TO BED. STATES:" I AM TIRED AND WANT TO TAKE A NAP."
--- NOTE | 2019-05-03 18:17 | NUR ---
I have reviewed this patient and I concur with the Shift Assessment completed by the Licensed Practical Nurse today this shift.
[2019-05-03 19:30] VITALS: BP 101/57
--- NOTE | 2019-05-03 19:30 | NUR ---
PT IS RESTING IN BED WITH EYES OPEN. ALERT AND ORIENTED X 3. DENIES ACUTE PAIN OR DISCOMFORT AT THIS TIME. O2 IS ON @ 2LPM PER NC. NO SOB NOTED. PULSE OX IS 99%. DRESSING TO LEIJA ON BACK IS CDI. NO DRAINAGE NOTED. MCMULLEN CATH IS PATENT AND DRAINING NACHO COLORED URINE TO A GRAVITY BAG. SR'S ARE UP X 2 IN BED. CALL LIGHT AND BEDSIDE TABLE ARE WITHIN EASY REACH.
--- NOTE | 2019-05-03 22:12 | NUR ---
PT RESTING IN BED WATCHING TV. NO NEEDS VOICED.
--- NOTE | 2019-05-04 00:54 | NUR ---
I have reviewed this patient and I concur with the Shift Assessment completed by the Licensed Practical Nurse today this shift.
--- NOTE | 2019-05-04 03:48 | NUR ---
RESTING IN BED WITH EYES CLOSED.
--- NOTE | 2019-05-04 05:50 | NUR ---
PT IS RESTING IN BED WITH EYES OPEN. NO NEEDS VOICED.
[2019-05-04 08:00] VITALS: BP 105/56
--- NOTE | 2019-05-04 08:00 | NUR ---
SHIFT ASSMT COMPLETED.BREAKFAST GIVEN.
--- NOTE | 2019-05-04 12:00 | NUR ---
EATING LUNCH.DENIES NEEDS.
[2019-05-04 19:04] VITALS: BP 104/67
--- NOTE | 2019-05-04 19:22 | NUR ---
PT IS RESTING IN A WC IN HIS ROOM WATCHING TV. ALERT AND ORIENTED X 3. DENIES ACUTE DISCOMFORT AT THIS TIME. ASSISTED INTO BED WITH SBA. O2 IS ON @ 2LPM PER NC. NO SOB NOTED. MCMULLEN CATH IS PATENT AND DRAINING TO A GRAVITY BAG. SR'S ARE UP X 2 IN BED. CALL LIGHT AND BEDSIDE TABLE ARE WITHIN EASY REACH.
--- NOTE | 2019-05-04 21:32 | NUR ---
PT RESTING IN BED WATCHING TV. NO NEEDS VOICED. DRESSING TO LEFT UPPER BACK CHANGED PER ORDERS.
--- NOTE | 2019-05-05 00:25 | NUR ---
PT RESTING IN BED. NO ACUTE DISTRESS NOTED.
--- NOTE | 2019-05-05 02:51 | NUR ---
I have reviewed this patient and I concur with the Shift Assessment completed by the Licensed Practical Nurse today this shift.
--- NOTE | 2019-05-05 04:50 | NUR ---
PT RESTING IN BED WITH EYES CLOSED. NO DISTRESS NOTED.
[2019-05-05 05:38] LABS: HEMATOCRIT 33.3 % (42.0-54.0); MCH 30.5 pg (26.0-34.0); MCV 92.2 fL (80.0-100.0); MEAN PLATELET VOLUME 10.4 fL (7.4-10.4); PLATELET COUNT 264 10x3/uL (130-400); RBC 3.61 10x6/uL (4.20-6.10); RDW 14.3 % (11.5-14.5); WBC 4.1 10x3/uL (4.8-10.8)
[2019-05-05 05:52] LABS: ANION GAP 11.2 mmol/L (8-16); CALCIUM 8.9 mg/dL (8.5-10.1); CARBON DIOXIDE 30.1 mmol/L (21.0-32.0); CREATININE - SERUM 1.1 mg/dL (0.6-1.3); POTASSIUM - SERUM 4.3 mmol/L (3.5-5.1)
[2019-05-05 08:00] VITALS: BP 115/71
--- NOTE | 2019-05-05 10:07 | NUR ---
LAYING IN BED WATCHING TV. OXYGEN IN PLACE. CALL LIGHT IN REACH
[2019-05-05 11:24] LABS: EOSINOPHILS 2 % (0-7); LYMPHOCYTES 10 % (15-50); MONOCYTES 21 % (2-11); NEUTROPHILS 64 % (40-80); PLATELET ESTIMATE NORMAL
[2019-05-05 11:25] LABS: ANISOCYTOSIS OCC; HYPOCHROMASIA OCC
--- NOTE | 2019-05-05 12:33 | NUR ---
CLINICALS UPDATES FAXED TO [facility] AT , AUTH # [id number] WITH TENATIVE DISCHARGE DATE BEING 05/06/19. WILL CONTINUE TO FOLLOW WITH PATIENT.
--- NOTE | 2019-05-05 18:15 | NUR ---
STILL SITTING UP EATING SUPPER. WEARING OXYGEN. DENIES NEEDS. CALL LIGHT IN REACH
--- NOTE | 2019-05-05 21:34 | NUR ---
PT IS RESTING IN BED WITH EYES OPEN. ALERT AND ORIENTED X 3. DENIES ANY DISCOMFORT. NO NEEDS VOICED.
--- NOTE | 2019-05-05 22:20 | NUR ---
I have reviewed this patient and I concur with the Shift Assessment completed by the Licensed Practical Nurse today this shift.
--- NOTE | 2019-05-06 01:36 | NUR ---
RESTING IN BED WITH EYES OPEN. NO NEEDS VOICED.
--- NOTE | 2019-05-06 02:47 | NUR ---
QUIET HOURS. PT LYING IN BED ON LEFT SIDE EYES CLOSED RESTING QUIETLY. RR EVEN AND UNLABORED. CL IN REACH
--- NOTE | 2019-05-06 06:23 | NUR ---
PT ASSISTED TO CHANGE INTO STREET CLOTHES PER HIS REQUEST.
[2019-05-06 08:00] VITALS: BP 101/68
--- NOTE | 2019-05-06 13:00 | NUR ---
PT VERY ANXIOUS TO GO HOME. SON IN ROOM TO TAKE HIM HOME. HE WANTED WC, SHOWER SEAT AND WALKER AT [place]. WHEN NURSE TRIED TO EXPLAIN DME RULES PT GOT AGGITATED AND REFUSED TO LISTEN. HE STATED HE JUST WANTED TO GO HOME. HE ONLY WANTED RESPIRATORY MEDS CALLED INTO HIS PHARMACY. LEFT FLOOR IN WITH SON.
--- NOTE | 2019-05-06 13:56 | NUR ---
PATIENT DISHCARGING HOME TODAY WITH FAMILY. [facility] WILL PROVIDE THEREAPY AT HOME. NO NEW DME NEEDED AT THIS TIME PER PATIENT. DR. GOOD 05/12/19 @ 1:30, DR. LAWRENCE 05/07/19 @ 2:45, DR. GALVEZ 06/06/19 @ 9:45, DR. ST 05/07/19 @ 1:00. PATIENT CHOICE FORM (HAND OUT GIVEN) AND IMFM FORMS SIGNED, COPY GIVEN TO PATIENT AND FILED IN CHART. DISCHARGE INSTRUCTIONS FAXED TO PCP, HOME HEALTH AND REVIEWED WITH PATIENT PER NURSE. DISCHARGE INSTRUCTIONS FAXED TO [facility] AT , AUTH . # [id number] WITH CONFORMATION RECIEVED
--- NOTE | 2019-05-12 10:01 | RHP ---
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 He presented to the ED with complaints of dyspnea on exertion associated with dizziness one week prior to his hospital admit, which was worsening. He was found to be in atrial fib. He had weakness, weight loss, low blood pressure, and anemia. The patient has got a history of hypertension, congestive heart failure, [place], coronary artery disease, status post coronary artery bypass grafting, peripheral vascular disease, COPD, emphysema, urinary retention. He is chronically on home O2. He has ggi-fkfao-gvit lung cancer in his left upper lobe, followed by Dr. Saab and Dr. Rodriguez. He has been receiving both chemo and radiation for the last month. His last chemo dose was approximately 2 weeks prior to his acute hospital admit. He has been taking a break. He was not handling it very well, the chemo itself. Chest x-ray does show consolidation in left upper lobe. His chemo was held a week prior to his hospitalization due to radiation gillespie. He has also been planned to resume chemotherapy after he was admitted to the hospital. His H&H were 7.9 and 26. In the ER, he was given 1 unit of packed red blood cells. He has got new-onset atrial fibrillation. The patient is currently on telemetry, continuous oxygen. He is on IV antibiotics. We are monitoring his blood counts closely and monitoring his electrolytes. He is on electrolyte protocol. He has got a Moore catheter secondary to urinary retention, deconditioning, proximal muscle weakness, debility, impaired balance, gait disturbance, impaired gait, high fall risk, and self-care deficits. These are all barriers to his discharge home. He lives at home alone and was independent with his mobility and ADLs with the use of a rolling walker occasionally. Currently set up for mod assist with ADLs and mod assist for mobility and safety concern. He and his son plan for him to return home hopefully at his prior level of functioning and maybe set up for home health and get back to resuming his chemotherapy and radiation treatments. Comorbidities include a history of ogf-SH-dsygdgh elevation myocardial infarction, atrial fibrillation with rapid ventricular response, oropharyngeal dysphagia, acute hypoxic respiratory failure, COPD, got a history of obstructive lung disease, dyspnea on exertion, fatigue, electrolyte abnormalities, normocytic anemia, gpn-hwfto-zjba cancer, unintentional weight loss, leukopenia, anemia, proximal muscle weakness, deconditioning, and debility. PAST MEDICAL HISTORY: Significant for history of coronary artery disease, peripheral vascular disease, COPD, emphysema, pneumonia, chronic O2 dependence, acid reflux, urinary retention. PAST SURGICAL HISTORY: Includes hernia repair, appendectomy, coronary artery bypass grafting, angioplasty with stents, right inguinal hernia repair, LASIK, and vasectomy. HISTORY AND PHYSICAL [id number] ED VEGA ALLERGIES: CHLORPHENIRAMINE, CODEINE, PHENYLEPHRINE, AND HYDROCODONE. CURRENT MEDICATIONS: Include Floranex 460 mg daily, Flomax 0.4 mg daily, spironolactone 25 mg daily, MiraLax 17 grams in 8 ounces of water daily. He is on mineral oil daily. Megace 40 mg daily, Levaquin 750 daily, furosemide 40 mg daily, enalapril 20 mg daily, atenolol 50 mg daily, aspirin 81 mg daily, Atrovent updrafts as needed b.i.d., budesonide 0.5 mg b.i.d., Mag-Ox 400 mg b.i.d., amiodarone 200 mg b.i.d., Tylenol 500 mg every 6 hours p.r.n., and MiraLax 17 grams in 8 ounces of water daily. HABITS: No current alcohol or tobacco use. FAMILY HISTORY: Noncontributory. SOCIAL HISTORY: The patient hopes to return back home and get back to his prior level of functioning with the help of his son. REVIEW OF SYSTEMS: GENERAL: Does complain of weakness and fatigue. HEENT: Does complain of cold, cough, and congestion. CARDIOVASCULAR: Denies any chest pain. LUNGS: Does complain of shortness of breath. LABORATORY DATA: White count is 2.6, H&H of 9.9 and 29.8, and platelet count was noted to be 177. His sodium is 140, potassium 3.8, BUN and creatinine of 23 and 0.7, blood sugar is noted to be 96. His admit UA did show 2+ blood, trace leukocyte esterase, and some red blood cells. 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 The patient has potential to make improvement. We will institute the following multidisciplinary therapies including, but not limited to, physical, occupational, respiratory, speech, nutritional services, prosthetics, and orthotics. Given his complex medical condition and risks for more complications, rehabilitation services cannot be provided at a lower level of care such as a skilled nurse facility. PLAN: 1. Admit to [facility] for the following disciplines; A. Physical therapy to improve gait, all transfer skills, and bed mobility to modified independent level. B. Occupational therapy to modified independent level. C. Case management to assist with discharge planning and placement options. D. Nutrition to assist with nutritional needs. E. Rehabilitation nursing to assist in monitoring the patient's underlying medical conditions and to assist with any type of bowel or bladder management. 2. The patient's current medications and medical care will be continued. 3. The patient will be placed on standard fall precautions. 4. The patient's estimated length of stay is approximately 7-10 days. 5. We will discuss the patient during care team staff meeting this week. We will continue on current breathing medications and we will hopefully get him back up and going and back to his chemo and radiation. TRANSINT:[id number] Voice Confirmation ID: [id number] DOCUMENT ID: [id number] 05/05/19 Edited for ismael BERNSTEIN. HISTORY AND PHYSICAL [id number] ED VEGA notes whether there has been none or any medical/functional change since admission: - No change since preadmission screen. DAY attests patient continues to be appropriate for IRF: - Continues to be appropriate. MARTIN MILNER MD at 1001 CC: [id number] DICTATION DATE: 04/29/19903 GLASS POLISHER: 04/29/19941 DIS IN 05/06/19 [facility] [address] [place] [address]
== END 2019-05-06 13:00 | disposition home health service (06) | DRG 91 ==
LOC: D.REHAB 17:15
PROVIDERS: Urology; ADMIT Emergency Medicine; ATTEND Emergency Medicine
PROC: 0TJB8ZZ Inspection of Bladder, Via Natural or Artificial Opening Endoscopic (ICD-10-PCS; principal; 2019-05-01 17:06)
DX: G72.0 Drug-induced myopathy (principal); J96.01 Acute respiratory failure with hypoxia; I21.4 Non-ST elevation (NSTEMI) myocardial infarction; J18.9 Pneumonia, unspecified organism; J90 Pleural effusion, not elsewhere classified; J44.1 Chronic obstructive pulmonary disease with (acute) exacerbation; N17.9 Acute kidney failure, unspecified; E87.1 Hypo-osmolality and hyponatremia; C34.90 Malignant neoplasm of unspecified part of unspecified bronchus or lung; T45.1X5D Adverse effect of antineoplastic and immunosuppressive drugs, subsequent encounter; I48.91 Unspecified atrial fibrillation; R13.12 Dysphagia, oropharyngeal phase; R53.83 Other fatigue; E87.8 Other disorders of electrolyte and fluid balance, not elsewhere classified; D64.9 Anemia, unspecified; R53.81 Other malaise; D72.819 Decreased white blood cell count, unspecified; K21.9 Gastro-esophageal reflux disease without esophagitis; R26.9 Unspecified abnormalities of gait and mobility; R53.1 Weakness; R63.0 Anorexia; I11.0 Hypertensive heart disease with heart failure

== ENCOUNTER 2019-05-08 09:06 | Inpatient (IN) | payer MEDICARE ==
[~2019-05-08] VITALS: Ht 177.8 cm; Wt 68.2 kg
[2019-05-08 09:23] VITALS: BP 117/75
--- NOTE | 2019-05-08 09:24 | NUR ---
BLOOD SUGAR = 192
[2019-05-08 09:29] LABS: APPEARANCE CLEAR (CLEAR); BILIRUBIN NEGATIVE (NEGATIVE); COLOR YELLOW (YELLOW); GLUCOSE NEGATIVE (NEGATIVE); KETONE NEGATIVE (NEGATIVE); NITRITE NEGATIVE (NEGATIVE); PROTEIN TRACE mg/dL (NEGATIVE); UROBILINOGEN NORMAL (NORMAL)
[2019-05-08 09:30] LABS: WHITE CELLS - URINE 0-5 /hpf (NEGATIVE)
[2019-05-08 09:31] LABS: BACTERIA FEW /hpf (NEGATIVE); EPITHELIAL CELLS OCC /hpf (0-5)
[2019-05-08 09:49] LABS: UDS - AMPHET NEGATIVE QUAL (NEGATIVE); UDS - BARB NEGATIVE QUAL (NEGATIVE); UDS - BENZO NEGATIVE QUAL (NEGATIVE); UDS - COCAINE NEGATIVE QUAL (NEGATIVE); UDS - OPIATE POSITIVE QUAL (NEGATIVE); UDS - PCP NEGATIVE QUAL (NEGATIVE); UDS - THC NEGATIVE QUAL (NEGATIVE)
[2019-05-08 10:36] LABS: BASOPHILS 0.1 % (0-2); EOSINOPHILS 0.1 % (0-7); HEMATOCRIT 36.4 % (42.0-54.0); HEMOGLOBIN 12.9 g/dL (13.5-17.5); IMMATURE GRANULOCYTES 2.2 % (0-5); LYMPHOCYTES 2.5 % (15-50); MCH 31.5 pg (26.0-34.0); MCHC 35.4 g/dL (31.0-37.0); MCV 88.8 fL (80.0-100.0); MEAN PLATELET VOLUME 10.3 fL (7.4-10.4); MONOCYTES 12.6 % (2-11); NEUTROPHILS 82.5 % (40-80); PLATELET COUNT 277 10x3/uL (130-400); RDW 14.3 % (11.5-14.5); WBC 9.7 10x3/uL (4.8-10.8)
[2019-05-08 10:41] LABS: APTT 27.4 SECONDS (22.8-39.4); CALC OSMOLALITY 272 mosm/kg (275-300); CARBON DIOXIDE 27.4 mmol/L (21.0-32.0); CHLORIDE - SERUM 89 mmol/L (98-107); CREATININE - SERUM 2.8 mg/dL (0.6-1.3); GLUCOSE 112 mg/dL (74-106); INR 1.13 (0.85-1.17); SODIUM 129 mmol/L (136-145); UREA NITROGEN 48 mg/dL (7-18); eGFR NON AFRICAN AMERICAN 23 mL/min (90-120)
[2019-05-08 11:01] LABS: ALBUMIN 3.7 g/dL (3.4-5.0); ALKALINE PHOSPHATASE 52 U/L (46-116); ALT (SGPT) 60 U/L (10-68); BILIRUBIN - TOTAL 0.73 mg/dL (0.2-1.3); CKMB 18.9 U/L (0.0-3.6); MAGNESIUM - SERUM 2.5 mg/dL (1.8-2.4); PROTEIN - SERUM 7.7 g/dL (6.4-8.2); THYROID STIMULATING HORMONE 11.45 uIU/mL (0.36-3.74)
[2019-05-08 11:03] LABS: CREATINE KINASE 2649 UL (21-232)
[2019-05-08 11:04] LABS: TROPONIN-I 0.106 ng/mL (0.000-0.060)
--- NOTE | 2019-05-08 14:02 | NUR ---
REPORT TO GYPSY GLOVER AT EXT 9412. PT GOING TO ROOM 2103. NOTIFIED SONANAY AT [phone].
[2019-05-08 16:01] LABS: THYROID STIMULATING HORMONE 11.33 uIU/mL (0.36-3.74)
[2019-05-08 16:02] LABS: % SATURATION 34 % (15-55); IRON 86 ug/dl (35-150); TOTAL IRON BIND CAPACITY 248 ug/dl (260-445); UNSAT IRON BIND CAPACITY 162 ug/dl (150-375)
[2019-05-08 16:13] VITALS: BP 131/79; BMI 29.4
[2019-05-08 16:27] LABS: CHOL - HDL RATIO 3.8 ratio (2.3-4.9); LDL-HDL RATIO 2.5 ratio (1.5-3.5)
[2019-05-08 18:28] VITALS: BP 131/79
--- NOTE | 2019-05-08 19:00 | NUR ---
REPORT RECEIVED, WILL CONTINUE POC. PATIENT IS AAOX3, LYING IN BED. NO S/S OF DISTRESS OBSERVED, RR EVEN AND UNLABORED ON 2L O2 VIA NC. F/C DRAINING BY GRAVITY TO RT SIDE OF BED, CONCENTRATED URINE NOTED. PATIENT DENIES NEEDS AT THIS TIME. CL IN REACH, BED LOCKED AND LOWERED. WILL CTM.
[2019-05-08 20:00] VITALS: BP 119/76
--- NOTE | 2019-05-08 20:00 | NUR ---
IV INFILTRATED, IV OUT WITH CATH TIP INTACT. IV RESITED TO LT FA WITH 22G X1 ATTEMPT. PATIENT TOLERATED WELL.
[2019-05-08 23:00] VITALS: BP 132/64
--- NOTE | 2019-05-09 01:50 | NUR ---
I have reviewed this patient and I concur with the Shift Assessment completed by the Licensed Practical Nurse today this shift.
[2019-05-09 04:00] VITALS: BP 124/78
[2019-05-09 05:30] LABS: BASOPHILS 0.2 % (0-2); EOSINOPHILS 0.1 % (0-7); HEMATOCRIT 31.9 % (42.0-54.0); HEMOGLOBIN 10.9 g/dL (13.5-17.5); IMMATURE GRANULOCYTES 1.9 % (0-5); LYMPHOCYTES 4.5 % (15-50); MCH 31.1 pg (26.0-34.0); MCHC 34.2 g/dL (31.0-37.0); MEAN PLATELET VOLUME 10.9 fL (7.4-10.4); MONOCYTES 9.5 % (2-11); NEUTROPHILS 83.8 % (40-80); PLATELET COUNT 271 10x3/uL (130-400); RBC 3.51 10x6/uL (4.20-6.10); RDW 14.8 % (11.5-14.5); WBC 10.8 10x3/uL (4.8-10.8)
[2019-05-09 05:50] LABS: MCV 90.9 fL (80.0-100.0)
[2019-05-09 05:53] LABS: CALCIUM 8.7 mg/dL (8.5-10.1); CARBON DIOXIDE 25.4 mmol/L (21.0-32.0)
[2019-05-09 06:02] LABS: CREATININE - SERUM 1.8 mg/dL (0.6-1.3); POTASSIUM - SERUM 5.4 mmol/L (3.5-5.1)
--- NOTE | 2019-05-09 07:25 | NUR ---
REPORT RECIEVED. PT A&O LYING ON BACK. HE HAS A L FA PIV INFUSING NS @ 100.HE HAS A MCMULLEN DRAINING URINE. RR EVEN AND UNLABORED. BED LOCKED AND IN LOWEST POSITION, CALL LIGHT WITHIN REACH. WILL CTM
[2019-05-09 09:00] VITALS: BP 104/56
[2019-05-09 12:40] VITALS: Ht 177.8 cm; Wt 68.2 kg
[2019-05-09 13:53] VITALS: BP 108/55
--- NOTE | 2019-05-09 16:03 | NUR ---
REPORTED BP OF 98/[address] RAMON AT THIS TIME.
--- NOTE | 2019-05-09 17:59 | MORECARE ---
CASE MANAGEMENT DISCHARGE SUMMARY PATIENT: ED VEGA UNIT: [id number] ADM DATE: 05/08/19 AGE: 78 : 42 SEX: M ROOM/BED: D.2103 AUTHOR: MAGDI GALAVIZ PHYSICIAN: REFERRING PHYSICIAN: JUAN C RAMON MD DATE OF SERVICE: 05/09/19 Discharge Plan Patient Name: ED VEGA [facility] [facility] 1940 Planned Disposition: Home with Home Health Anticipated Discharge Date: Discharge Date: Expected LOS: Initial Reviewer: [email or web address] Initial Review Date: 05/08/2019 Generated: 05/09/19 6:58 pm DCPIA - Discharge Planning Initial Assessment Updated by [email or web address]: Rowdy Stephen on 05/09/19 5:55 pm * Is the patient Alert and Oriented? Yes * How many steps to enter\exit or inside your home? NONE * PCP DR. GOOD DRUMMOND * Pharmacy [facility] * Preadmission Environment Home Alone * ADLs Independent * Equipment Walker * Other Equipment NO MEDICAL EQUIPMENT PROVIDER PREFERENCE * List name and contact numbers for known caregivers / representatives who currently or will assist patient after discharge: ANAY VEGA, SON, * Verbal permission to speak to the caregivers and representatives has been obtained from the patient. N/A * Community resources currently utilized Home Health * Please name any agencies selected above. [facility] * Additional services required to return to the preadmission environment? No * Can the patient safely return to the preadmission environment? Yes * Has this patient been hospitalized within the prior 30 days at any hospital? Yes Patient Name: ED VEGA Page 12022 at 1759 All edits/amendments must be made on the electronic document DICTATION DATE: 05/09/191757 PULLING UNIT OPERATOR: ALLEN 05/09/191757 RPT#: [id number] DC DATE: STATUS: ADM IN [facility] [address] [place] [address] END OF REPORT
--- NOTE | 2019-05-09 18:08 | MORECARE ---
CASE MANAGEMENT DISCHARGE SUMMARY PATIENT: ED VEGA UNIT: [id number] ADM DATE: 05/08/19 AGE: 78 : 42 SEX: M ROOM/BED: D.2107 AUTHOR: GUILLAUME,DOC PHYSICIAN: REFERRING PHYSICIAN: JUAN C RAMON MD DATE OF SERVICE: 05/09/19 Discharge Plan [facility] ED VEGA [facility] [facility] 1940 Planned Disposition: Home with Home Health Anticipated Discharge Date: Discharge Date: Expected LOS: Initial Reviewer: [email or web address] Initial Review Date: 05/08/2019 Generated: 05/09/19 7:08 pm Comments DCP- Discharge Planning Updated by [email or web address]: Rowdy Stephen on 05/09/19 5:[address] Patient Name: ED VEGA Admission Status: ER Accout number: [id number] Admission Date: 05-08-2019 : 1940 Admission Diagnosis: Attending: JUAN C RAMON Current LOS: 1 Anticipated DC Date: Planned Disposition: INPATIENT REHAB Primary Insurance: [employer] MEDICARE ADV PLANNED EXTERNAL PROVIDER: [facility] Discharge Planning Comments: CM MET WITH PT IN ROOM TO DISCUSS DISCHARGE PLANNING AND NEEDS. PT REPORTS LIVING AT HOME INDEPENDENTLY AND ALONE. HE CAME BACK IN BECAUSE HE WAS WEAK, NOT FEELING WELL AND HIS LEGS ARE NOT WORKING. PT HAS A WALKER WITH NO MEDICAL EQUIPMENT PROVIDER PREFERENCE. PT WAS ARRANGED WITH [facility], BUT THEY DID NOT COME OUT BEFORE PT CAME BACK IN HOSPITAL. CM DISCUSSED AVAILABILITY OF HOME HEALTH, REHAB SERVICES AND MEDICAL EQUIPMENT. PT STATES HE HOPES TO DISCHARGE HOME, BUT THINKS HE WILL NEED REHAB. PT WILL NOT CONSIDER NURSING HOME FACLITY FOR REHAB. PT STATES HE WANTS REHAB AT [place] AGAIN. CM EXPLAINED THAT PT HAS MANAGED MEDICARE AND WILL REQUIRE INSURANCE APPROVAL. PT REPORTS UNDERSTANDING. IF DECLINED REHAB, PT PLANS TO RETURN HOME AND WOULD LIKE HOME HEALTH WITH [facility]. PT WILL REQUIRED PHYSICAL AND OCCUPATIONAL THERAPY EVALUATIONS TO ASSESS NEED OF INPATIENT PHYSICAL THERAPY SERVICES. CM TO CONTINUE TO FOLLOW AND ASSIST NEEDED. Box Cutter: Rowdy Stephen DCPIA - Discharge Planning Initial Assessment Updated by [email or web address]: Rowdy Stephen on 05/09/19 5:55 pm * Is the patient Alert and Oriented? Yes * How many steps to enter\exit or inside your home? NONE * PCP DR. GOOD [place] * Pharmacy [facility] * Preadmission Environment Home Alone * ADLs Independent * Equipment Walker * Other Equipment NO MEDICAL EQUIPMENT PROVIDER PREFERENCE * List name and contact numbers for known caregivers / representatives who currently or will assist patient after discharge: ANAY VEGA, SON, * Verbal permission to speak to the caregivers and representatives has been obtained from the patient. N/A * Community resources currently utilized Home Health * Please name any agencies selected above. [facility] * Additional services required to return to the preadmission environment? No * Can the patient safely return to the preadmission environment? Yes * Has this patient been hospitalized within the prior 30 days at any hospital? Yes Last DP export: 05/09/19 4:59 p Patient Name: ED VEGA Page [id number] at 1808 All edits/amendments must be made on the electronic document DICTATION DATE: 05/09/191807 PROSTHETIST: ALLEN 05/09/191807 RPT#: [id number] DC DATE: STATUS: ADM IN [facility] [address] [place] [address] END OF REPORT
[2019-05-09 18:40] VITALS: BP 98/57
--- NOTE | 2019-05-09 18:45 | NUR ---
WRITTEN REPORT RECEIVED, PT CARE ASSUMED. INTRODUCED SELF AND WROTE NAME ON BOARD. PT LYINGIN BED WATCHING TV, AAOX4. REPORTS HEADACHE PAIN LEVEL OF 6, ON A SCALE OF 0-10. DENIES ANY OTHER NEEDS AT THIS TIME. BED IN LOWEST POSITION, SR X2, CALL LIGHT WITHIN REACH. WILL CONTINUE TO MONITOR.
--- NOTE | 2019-05-10 03:31 | NUR ---
PT C/O PAIN AT PIV SITE TO LEFT FA. PIV REMOVED, CATHETER TIP INTACT, NO S/S OF BLEEDING NOTED. PIV 22 GAUGE RESITED TO RIGHT FA. NS INFUSING WITHOUT ISSUE @ 75 ML/HR, NO S/S OF INFILTRATION, INFLAMMATION, OR PHLEBITIS NOTED. DENIES ANY OTHER NEEDS AT THIS TIME. BED IN LOWEST POSITION, SR X3, CALL LIGHT WITHIN REACH. WILL CONTINUE TO MONITOR.
[2019-05-10 04:30] VITALS: BP 104/54
[2019-05-10 05:21] LABS: BASOPHILS 0.3 % (0-2); EOSINOPHILS 0.5 % (0-7); HEMATOCRIT 28.7 % (42.0-54.0); HEMOGLOBIN 9.6 g/dL (13.5-17.5); IMMATURE GRANULOCYTES 4.7 % (0-5); LYMPHOCYTES 9.2 % (15-50); MCH 30.8 pg (26.0-34.0); MCHC 33.4 g/dL (31.0-37.0); MEAN PLATELET VOLUME 10.7 fL (7.4-10.4); MONOCYTES 14.4 % (2-11); NEUTROPHILS 70.9 % (40-80); RBC 3.12 10x6/uL (4.20-6.10); RDW 15.1 % (11.5-14.5)
[2019-05-10 05:22] LABS: PLATELET COUNT 211 10x3/uL (130-400); WBC 6.7 10x3/uL (4.8-10.8)
[2019-05-10 05:50] LABS: CALCIUM 7.8 mg/dL (8.5-10.1); CARBON DIOXIDE 21.9 mmol/L (21.0-32.0); CHLORIDE - SERUM 101 mmol/L (98-107); SODIUM 134 mmol/L (136-145); UREA NITROGEN 40 mg/dL (7-18)
[2019-05-10 05:52] LABS: CALC OSMOLALITY 275 mosm/kg (275-300); CREATINE KINASE 802 UL (21-232); CREATININE - SERUM 1.2 mg/dL (0.6-1.3); GLUCOSE 62 mg/dL (74-106); POTASSIUM - SERUM 4.1 mmol/L (3.5-5.1); eGFR NON AFRICAN AMERICAN 63 mL/min (90-120)
[2019-05-10 05:53] LABS: CKMB 4.2 U/L (0.0-3.6)
--- NOTE | 2019-05-10 06:11 | NUR ---
RECEIVED GLUCOSE LEVEL OF 62 FROM LAB. EDUCATED PT ABOUT THE ROLE OF SUGAR IN THE BODY AND THE BRAIN. PT VERBALIZED UNDERSTANDING. OFFERED PT 240 ML APPLE JUICE, PT TOOK 4 DRINKS AND THEN REFUSED, STATING "THAT APPLE JUICE IS STRONG ON THE STOMACH. I DON'T WANT ANYMORE." OFFERED PT ORANGE JUICE, PT REFUSED. PT ALSO REFUSED AM MEDS, STATING "I DON'T NEED THE STOMACH PILL THIS MORNING, AND I DON'T TAKE SYNTHROID, NO ONE HAS TALKED TO ME ABOUT STARTING IT." EDUCATED PT ON MEDICATION, STILL REFUSED MEDICATION. ENCOURAGED TO EAT THREE MUSKATEER CANDY BAR AT BEDSIDE, PT REFUSED, STATING, "I DON'T WANT A GOD DAMN THING." DENIES ANY OTHER NEEDS AT THIS TIME. BED IN LOWEST POSITION, SR X3, CALL LIGHT WITHIN REACH. WILL CONTINUE TO MONITOR.
--- NOTE | 2019-05-10 06:38 | NUR ---
PT READJUSTED IN BED AND MADE COMFORTABLE. AGREED TO EAT 2 MINI THREE MUSKATEER CANDY BARS, REFUSED ANY OTHER FORM OF SUGAR. DENIES ANY OTHER NEEDS AT THIS TIME. BED IN LOWEST POSITION, SR X3, CALL LIGHT WITHIN REACH. WILL CONTINUE TO MONITOR.
--- NOTE | 2019-05-10 07:15 | NUR ---
REC'D IN BED AWAKE AND ALERT. RESP EVEN AND ULABORED WITH NO DISTRESS NOTED. CAN EXPRESSS NEEDS AND WANTS. DENEIS ANY PAIN OR DISCOMFORT AT THIS TIME. ASSESSMENT COMPLETED. C/L IN REACH AT BEDSIDE.
[2019-05-10 08:06] VITALS: BP 109/52
[2019-05-10 11:43] VITALS: BP 95/50
[2019-05-10 14:41] LABS: CKMB 3.7 U/L (0.0-3.6); CREATINE KINASE 608 UL (21-232)
[2019-05-10 14:45] LABS: TROPONIN-I 0.069 ng/mL (0.000-0.060)
--- NOTE | 2019-05-10 14:53 | NUR ---
REC'D CRITCAL LABS ON PT FOR TROPONIN OF 0.069 ON TODAY WITH PRIOR LABS ON 05/08/19 OF 0.106. CALL WAS PLACED TO DR. RAMON NO NEW ORDERS REC'D AT THIS TIME JUST TO NOTIFIY DR. PRINCE WHEN HE ROUNDS.
[2019-05-10 15:58] VITALS: BP 122/58
--- NOTE | 2019-05-10 16:45 | NUR ---
I have reviewed this patient and I concur with the Shift Assessment completed by the Licensed Practical Nurse today this shift.
[2019-05-10 19:30] LABS: CKMB 3.3 U/L (0.0-3.6); CREATINE KINASE 509 UL (21-232); TROPONIN-I 0.049 ng/mL (0.000-0.060)
--- NOTE | 2019-05-10 19:30 | NUR ---
BEDSIDE REPORT RECEIVED FROM DAY SHIFT, PT CARE ASSUMED. WROTE NAME ON BOARD, PT SITTING UP IN BED, WATCHING TV, AAOX4. ASSISTED PT TO BATHROOM, BACK TO BED, CHG BED BATH ADMINISTRATION, AND LINEN/GOWN CHANGE WITH MARCELLO HOLGUIN. DENIES PAIN OR ANY OTHER NEEDS AT THIS TIME. BED IN LOWEST POSITION, SR X3, CALL LIGHT WITHIN REACH. WILL CONTINUE TO MONITOR.
[2019-05-10 20:00] VITALS: BP 118/68
[2019-05-11] VITALS (7 sets, daily range): BP systolic 94–129; BP diastolic 33–72
--- NOTE | 2019-05-11 02:10 | NUR ---
PT LYING IN BED WITH EYES CLOSED, RR EVEN AND NONLABORED, NO S/S OF DISTRESS, AROUSES EASILY TO VOICE. DENIES ANY NEEDS AT THIS TIME. BED IN LOWEST POSITION, SR X2, CALL LIGHT WITHIN REACH. WILL CONTINUE TO MONITOR.
[2019-05-11 03:09] LABS: BASOPHILS 0.4 % (0-2); EOSINOPHILS 0.9 % (0-7); HEMATOCRIT 27.8 % (42.0-54.0); HEMOGLOBIN 9.4 g/dL (13.5-17.5); MCH 30.9 pg (26.0-34.0); MCHC 33.8 g/dL (31.0-37.0); MCV 91.4 fL (80.0-100.0); MONOCYTES 14.6 % (2-11); NEUTROPHILS 66.1 % (40-80); PLATELET COUNT 179 10x3/uL (130-400); RBC 3.04 10x6/uL (4.20-6.10); RDW 14.7 % (11.5-14.5); WBC 5.3 10x3/uL (4.8-10.8)
[2019-05-11 03:41] LABS: CALC OSMOLALITY 268 mosm/kg (275-300); CARBON DIOXIDE 25.2 mmol/L (21.0-32.0); CHLORIDE - SERUM 101 mmol/L (98-107); CKMB 3.2 U/L (0.0-3.6); CREATINE KINASE 426 UL (21-232); CREATININE - SERUM 1.1 mg/dL (0.6-1.3); GLUCOSE 86 mg/dL (74-106); POTASSIUM - SERUM 4.1 mmol/L (3.5-5.1); SODIUM 133 mmol/L (136-145); TROPONIN-I 0.057 ng/mL (0.000-0.060); UREA NITROGEN 23 mg/dL (7-18); eGFR NON AFRICAN AMERICAN 69 mL/min (90-120)
--- NOTE | 2019-05-11 20:00 | NUR ---
ALERT RESTING IN BED, DENIES PAIN OR NEEDS AT THIS TIME, SEE SHIFT ASSESSEMENT CALL LIGHT IN REACH
[2019-05-12 04:00] VITALS: BP 125/58; BP 99/59
[2019-05-12 05:37] LABS: HEMATOCRIT 28.3 % (42.0-54.0); HEMOGLOBIN 9.6 g/dL (13.5-17.5); MCH 30.9 pg (26.0-34.0); MCHC 33.9 g/dL (31.0-37.0); MEAN PLATELET VOLUME 10.5 fL (7.4-10.4); PLATELET COUNT 170 10x3/uL (130-400); RBC 3.11 10x6/uL (4.20-6.10); RDW 14.7 % (11.5-14.5)
[2019-05-12 05:46] LABS: WBC 3.7 10x3/uL (4.8-10.8)
[2019-05-12 05:50] LABS: CALC OSMOLALITY 271 mosm/kg (275-300); CALCIUM 7.7 mg/dL (8.5-10.1); CARBON DIOXIDE 26.4 mmol/L (21.0-32.0); CHLORIDE - SERUM 101 mmol/L (98-107); CREATININE - SERUM 0.9 mg/dL (0.6-1.3); GLUCOSE 91 mg/dL (74-106); POTASSIUM - SERUM 3.7 mmol/L (3.5-5.1); SODIUM 136 mmol/L (136-145); eGFR NON AFRICAN AMERICAN 87 mL/min (90-120)
[2019-05-12 05:51] LABS: UREA NITROGEN 12 mg/dL (7-18)
[2019-05-12 08:00] VITALS: BP 121/49
[2019-05-12 10:38] LABS: ANISOCYTOSIS OCC; EOSINOPHILS 3 % (0-7); LYMPHOCYTES 9 % (15-50); MONOCYTES 16 % (2-11); NEUTROPHILS 67 % (40-80); PLATELET ESTIMATE NORMAL
[2019-05-12 12:00] VITALS: BP 99/54
--- NOTE | 2019-05-12 13:35 | NUR ---
Nutrition Follow-up: Pt reports no improvement in appetite although he ate ~50% of breakfast this AM. No N/V; occasional difficulty swallowing. Reports altered taste since having chemo/radiation. Diet: Renal No new wt Last BM: 05/10 Labs noted: Ca 7.7, GFR 87, K+ 3.7 Meds noted: Miralax, Megace, NS @ 100 -Rec change to cardiac diet; renal labs normalized. -May consider ST eval 2/ pt's report of occasional difficulty swallowing. -RD following.
--- NOTE | 2019-05-12 19:13 | NUR ---
EVENING ROUNDS COMPLETE. PT LAYING IN BED. AAOX4, NO SIGNS OF DISTRESS. DENIES ANY PAIN OR NEEDS AT THIS TIME. CL IN REACH, BED IN LOWEST POSITION.
[2019-05-12 20:00] VITALS: BP 126/66
[2019-05-13 00:30] VITALS: BP 120/78
[2019-05-13 04:00] VITALS: BP 113/64
[2019-05-13 04:45] LABS: BASOPHILS 0.9 % (0-2); CALC OSMOLALITY 271 mosm/kg (275-300); CALCIUM 7.7 mg/dL (8.5-10.1); CARBON DIOXIDE 28.8 mmol/L (21.0-32.0); CHLORIDE - SERUM 102 mmol/L (98-107); CREATININE - SERUM 0.9 mg/dL (0.6-1.3); EOSINOPHILS 1.4 % (0-7); GLUCOSE 93 mg/dL (74-106); HEMATOCRIT 29.9 % (42.0-54.0); HEMOGLOBIN 10.2 g/dL (13.5-17.5); IMMATURE GRANULOCYTES 12.9 % (0-5); LYMPHOCYTES 11.3 % (15-50); MCH 31.2 pg (26.0-34.0); MCHC 34.1 g/dL (31.0-37.0); MCV 91.4 fL (80.0-100.0); MEAN PLATELET VOLUME 10.7 fL (7.4-10.4); MONOCYTES 16.1 % (2-11); NEUTROPHILS 57.4 % (40-80); PLATELET COUNT 181 10x3/uL (130-400); POTASSIUM - SERUM 3.7 mmol/L (3.5-5.1); RBC 3.27 10x6/uL (4.20-6.10); RDW 14.9 % (11.5-14.5); SODIUM 137 mmol/L (136-145); WBC 4.4 10x3/uL (4.8-10.8); eGFR NON AFRICAN AMERICAN 87 mL/min (90-120)
[2019-05-13 04:53] LABS: UREA NITROGEN 8 mg/dL (7-18)
[2019-05-13 08:51] VITALS: BP 136/73
--- NOTE | 2019-05-13 09:05 | NUR ---
PT WENT INTO [facility] AT 09. RATE OF 72. BETAPACE GIVEN AT THIS TIME. WILL CTM
[2019-05-13 12:02] VITALS: BP 117/66
[2019-05-13] MEDS ORDERED: SYNTHROID25 MCG PO (13:09)
[2019-05-13] MEDS ORDERED: LEVAQUIN750 MG PO (13:09)
[2019-05-13] MEDS ORDERED: BETAPACE 80 MG80 MG PO (13:10)
[2019-05-13] MEDS ORDERED: PROTONIX40 MG PO (13:10)
--- NOTE | 2019-05-13 13:15 | NUR ---
Rehab Note- Acute Inpatient Rehab prescreen order received. THe patient has [employer] and will require a PreAuth. He was recently discharged from our acute inpatient rehab unit. Will need an OT Eval for PReAuth process. Spoke with YOLANDA Zeng. Will follow at this time and begin PreAuth process. Thank you for this referral! Myranda Luong RN Clinical Liaison, [facility] Rehab
--- NOTE | 2019-05-13 14:11 | MORECARE ---
CASE MANAGEMENT DISCHARGE SUMMARY PATIENT: ED VEGA UNIT: [id number] ADM DATE: 05/08/19 AGE: 78 : 42 SEX: M ROOM/BED: D.2107 AUTHOR: GUILLAUME,DOC PHYSICIAN: REFERRING PHYSICIAN: JUAN C RAMON MD DATE OF SERVICE: 05/13/19 Discharge Plan Patient Name: ED VEGA [facility] [facility] 1940 Planned Disposition: Inpatient Rehab Anticipated Discharge Date: 05/14/19 Discharge Date: Expected LOS: 6 Initial Reviewer: [email or web address] Initial Review Date: 05/08/2019 Generated: 05/13/19 3:11 pm DCP- Discharge Planning Updated by [email or web address]: Rowdy Stephen on 05/09/19 5:[address] Patient Name: ED VEGA Admission Status: ER Accout number: [id number] Admission Date: 05-08-2019 : 1940 Admission Diagnosis: Attending: JUAN C RAMON Current LOS: 1 Anticipated DC Date: Planned Disposition: INPATIENT REHAB Primary Insurance: [employer] MEDICARE ADV PLANNED EXTERNAL PROVIDER: [facility] INPATIENT REHAB Discharge Planning Comments: CM MET WITH PT IN ROOM TO DISCUSS DISCHARGE PLANNING AND NEEDS. PT REPORTS LIVING AT HOME INDEPENDENTLY AND ALONE. HE CAME BACK IN BECAUSE HE WAS WEAK, NOT FEELING WELL AND HIS LEGS ARE NOT WORKING. PT HAS A WALKER WITH NO MEDICAL EQUIPMENT PROVIDER PREFERENCE. PT WAS ARRANGED WITH [facility], BUT THEY DID NOT COME OUT BEFORE PT CAME BACK IN HOSPITAL. CM DISCUSSED AVAILABILITY OF HOME HEALTH, REHAB SERVICES AND MEDICAL EQUIPMENT. PT STATES HE HOPES TO DISCHARGE HOME, BUT THINKS HE WILL NEED REHAB. PT WILL NOT CONSIDER LONGTERM FACLITY FOR REHAB. PT STATES HE WANTS REHAB AT [place] AGAIN. CM EXPLAINED THAT PT HAS MANAGED MEDICARE AND WILL REQUIRE INSURANCE APPROVAL. PT REPORTS UNDERSTANDING. IF DECLINED REHAB, PT PLANS TO RETURN HOME AND WOULD LIKE HOME HEALTH WITH [facility]. PT WILL REQUIRED PHYSICAL AND OCCUPATIONAL THERAPY EVALUATIONS TO ASSESS NEED OF INPATIENT PHYSICAL THERAPY SERVICES. CM TO CONTINUE TO FOLLOW AND ASSIST NEEDED. Metallic Yarn Slitting Machine Operator: Rowdy Stephen DCPIA - Discharge Planning Initial Assessment Updated by [email or web address]: Rowdy Stephen on 05/09/19 5:55 pm * Is the patient Alert and Oriented? Yes * How many steps to enter\exit or inside your home? NONE * PCP DR. [facility] [place] * Pharmacy [facility] * Preadmission Environment Home Alone * ADLs Independent * Equipment Walker * Other Equipment NO MEDICAL EQUIPMENT PROVIDER PREFERENCE * List name and contact numbers for known caregivers / representatives who currently or will assist patient after discharge: ANAY VEGA, SON, * Verbal permission to speak to the caregivers and representatives has been obtained from the patient. N/A * Community resources currently utilized Home Health * Please name any agencies selected above. [facility] * Additional services required to return to the preadmission environment? No * Can the patient safely return to the preadmission environment? Yes * Has this patient been hospitalized within the prior 30 days at any hospital? Yes Last DP export: 05/09/19 5:08 p Patient Name: ED VEGA Page 62941 at 1411 All edits/amendments must be made on the electronic document DICTATION DATE: 05/13/19 141 IT COMPLIANCE MANAGER: ALLEN 05/13/19 141 RPT#: [id number] DC DATE: STATUS: ADM IN [facility] [address] [place] [address] END OF REPORT
--- NOTE | 2019-05-13 14:19 | MORECARE ---
CASE MANAGEMENT DISCHARGE SUMMARY PATIENT: ED VEGA UNIT: [id number] ADM DATE: 05/08/19 AGE: 78 : 42 SEX: M ROOM/BED: D.2107 AUTHOR: GUILLAUME,DOC PHYSICIAN: REFERRING PHYSICIAN: JUAN C RAMON MD DATE OF SERVICE: 05/13/19 Discharge Plan Patient Name: ED VEGA [facility] [facility] 1940 Planned Disposition: Inpatient Rehab Anticipated Discharge Date: 05/14/19 Discharge Date: Expected LOS: 6 Initial Reviewer: [id number] Initial Review Date: 05/08/2019 Generated: 05/13/19 3:18 pm Comments DCP- Discharge Planning Updated by [email or web address]: Rowdy Stephen on 05/13/19 1:[address] Patient Name: ED VEGA Encounter No: [id number] : 1940 Primary Insurance: [employer] MEDICARE ADV Anticipated DC Date: 05-14-2019 Planned Disposition: Inpatient Rehab External Planned Provider: [facility] INPATIENT REHAB DCP follow-up note: CM RECEIVED REQUEST TO MEET WITH PT AND FAMILY IN ROOM. CM WAS NOT ABLE TO MEET WITH FAMILY DURING REQUESTED TIME DUE TO HAVING TO ATTEND "MDT" MEETING. CM SPOKE TO PT IN ROOM AFTER MEETING, FAMILY HAD DEPARTED. PT STATES HE WAS THINKING ABOUT REHAB BUT REALLY WANTS TO GO HOME, PT LIVES ALONE, FAMILY CHECKS ON HIM. PT STATES THAT WHEN HE GOES HOME, HE THINKS HE NEEDS OXYGEN AND A WHEELCHAIR. PT ASKED CM TO CALL HIS SON REGARDING PLANNING. CM CALLED ED JR. SILVIA, , WHO WAS CONCERNED ABOUT PT GOING HOME ALONE AND FEELS PT NEEDS REHAB AGAIN. PT JUST GOT OUT OF REHAB AND REFUSES TO GO TO A DETENTION FACILITY FOR REHAB OR MOVE INTO THE SON'S HOME FOR ASSISTANCE. THEY WANT HIM TO HAVE REHAB AT [place] IF POSSIBLE. CM SPOKE TO PT IN ROOM WHO IS AGREEABLE FOR REHAB AT [place] BUT WILL NOT CONSENT FOR NURSING FACILITY / DETENTION FACILITY. PT STATES IF INSURANCE WILL NOT PAY FOR INPATIENT AT [place], HE WILL GO HOME WITH HOME HEALTH. CM OBTAINED ORDERS FOR INPATIENT REHAB PRESCREENING AND OCCUPATIONAL THERAPY EVALUATION. CM SPOKE TO COMPA WHO INFORMED CM THAT PT JUST LEFT INPATIENT REHAB RECENTLY AND IS DOUBTFUL THAT PT'S MANAGED MEDICARE WILL APPROVE AGAIN, BUT SHE WILL SUBMIT FOR AUTHORIZATION REQUEST WHEN OCCUPATIONAL THERAPY EVALUATION IS COMPLETED. CM WAITING OCCUPATIONAL THERAPY EVALUATION WELL INSURANCE AUTHORIZATION FOR INPATIENT REHAB AT [place]. Rowdy Stephen, CASE MANAGEMENT DCP- Discharge Planning Updated by [email or web address]: Rowdy Stephen on 05/09/19 5:[address] Patient Name: ED VEGA Admission Status: ER Accout number: [id number] Admission Date: 05-08-2019 : 1940 Admission Diagnosis: Attending: JUAN C RAMON Current LOS: 1 Anticipated DC Date: Planned Disposition: INPATIENT REHAB Primary Insurance: [employer] MEDICARE ADV PLANNED EXTERNAL PROVIDER: [facility] INPATIENT REHAB Discharge Planning Comments: CM MET WITH PT IN ROOM TO DISCUSS DISCHARGE PLANNING AND NEEDS. PT REPORTS LIVING AT HOME INDEPENDENTLY AND ALONE. HE CAME BACK IN BECAUSE HE WAS WEAK, NOT FEELING WELL AND HIS LEGS ARE NOT WORKING. PT HAS A WALKER WITH NO MEDICAL EQUIPMENT PROVIDER PREFERENCE. PT WAS ARRANGED WITH [facility], BUT THEY DID NOT COME OUT BEFORE PT CAME BACK IN HOSPITAL. CM DISCUSSED AVAILABILITY OF HOME HEALTH, REHAB SERVICES AND MEDICAL EQUIPMENT. PT STATES HE HOPES TO DISCHARGE HOME, BUT THINKS HE WILL NEED REHAB. PT WILL NOT CONSIDER DETENTION FACLITY FOR REHAB. PT STATES HE WANTS REHAB AT [place] AGAIN. CM EXPLAINED THAT PT HAS MANAGED MEDICARE AND WILL REQUIRE INSURANCE APPROVAL. PT REPORTS UNDERSTANDING. IF DECLINED REHAB, PT PLANS TO RETURN HOME AND WOULD LIKE HOME HEALTH WITH [facility]. PT WILL REQUIRED PHYSICAL AND OCCUPATIONAL THERAPY EVALUATIONS TO ASSESS NEED OF INPATIENT PHYSICAL THERAPY SERVICES. CM TO CONTINUE TO FOLLOW AND ASSIST NEEDED. Gas Appliance Installer: Rowdy Stephen DCPIA - Discharge Planning Initial Assessment Updated by [id number]: Rowdy Stephen on 05/09/19 5:55 pm * Is the patient Alert and Oriented? Yes * How many steps to enter\\exit or inside your home? NONE * PCP DR. [facility] [place] * [facility] * Preadmission Environment Home Alone * ADLs Independent * Equipment Walker * Other Equipment NO MEDICAL EQUIPMENT PROVIDER PREFERENCE * List name and contact numbers for known caregivers / representatives who currently or will assist patient after discharge: ANAY VEGA, SON, * Verbal permission to speak to the caregivers and representatives has been obtained from the patient. N/A * Community resources currently utilized Home Health * Please name any agencies selected above. [facility] * Additional services required to return to the preadmission environment? No * Can the patient safely return to the preadmission environment? Yes * Has this patient been hospitalized within the prior 30 days at any hospital? Yes Last DP export: 05/13/19 1:11 Patient Name: ED VEGA Page 46319 at 1419 All edits/amendments must be made on the electronic document DICTATION DATE: 05/13/191417 TIMBER HARVESTER OPERATOR: ALLEN 05/13/191417 RPT#: [id number] DC DATE: STATUS: ADM IN [facility] [address] [place] [address] END OF REPORT
[2019-05-13 17:05] VITALS: BP 99/56
--- NOTE | 2019-05-13 19:05 | NUR ---
AWAKE AND ALERT DENIES NEEDS AT THIS TIME BED IS LOW AND LOCKED CALL LIGHT WITH PT SKIN WARM AND DRY
[2019-05-13 20:00] VITALS: BP 125/68
[2019-05-14] VITALS: BP 127/68
--- NOTE | 2019-05-14 02:51 | NUR ---
I have reviewed this patient and I concur with the Shift Assessment completed by the Licensed Practical Nurse today this shift.
[2019-05-14 04:00] VITALS: BP 123/70
--- NOTE | 2019-05-14 07:39 | NUR ---
A/A/OX4. DENIES ANY PAIN DISCOMFORT OR NEEDS WITH NO REQUESTS VOICED. 02 ON AT 2L/M PER N/C WITH NO SOB OR DISTRESS NOTED. ASSESSMENT COMPLETED. BED LOW POSITION AND CALL LIGHT IN REACH.
[2019-05-14 09:12] VITALS: BP 144/77
--- NOTE | 2019-05-14 10:41 | CN ---
PATIENT NAME:ED ABEBE MEDICAL RECORD: [id number] : 44 LOCATION:[facility] D.2103 ADMIT DATE: 05/08/19 ACCOUNT: [id number] CONSULTING PHYSICIAN: MAYRA MORRIS MD REFERRING PHYSICIAN: JUAN C RAMON MD DATE OF CONSULTATION: 05/08/2019 DIAGNOSES: 1. Syncope. 2. Non-Q-wave myocardial infarction. 3. Coronary artery disease. 4. Previous percutaneous transluminal coronary angioplasty stent. 5. Dehydration. 6. Acute renal insufficiency. 7. Lung carcinoma. 8. Paroxysmal atrial fibrillation. 9. Hypertension. 10. Chronic obstructive pulmonary disease. 11. Smoking history. HISTORY OF PRESENT ILLNESS: Mr. Abebe was found down. He has been down for a number of days. He had an episode of syncope. He does not remember how he got down on the floor. Denies any chest pain or chest discomfort. Troponin is mildly elevated, but creatinine is 2.8. His EKG is with no acute ST-T abnormalities. He has a history of atrial fibrillation for which he is on amiodarone, but he admits that he has not taken any of his cardiac meds and most likely a week or longer. He is undergoing treatment chemotherapy as well as radiation for lung cancer. PHYSICAL EXAMINATION: CONSTITUTIONAL/GENERAL APPEARANCE: Well nourished, well developed, appears stated age. EYES: Lids and conjunctivae noninjected. No discharge. No pallor. ENT: Lips within normal limit. No cyanosis. No pallor. NECK: Carotid arteries, bilateral normal upstroke. No bruits. No thrills. No jugular venous pressure or distention. CERVICAL LYMPH NODES: Nontender. Nonenlarged. THYROID: Not enlarged. No nodules. CARDIOVASCULAR: Precordial exam, nondisplaced. No heaves or pericardial thrills. Rate and rhythm, regular. Heart sounds, normal S1, normal S2. No S3, no gallop, no rub. Systolic murmur, not heard. Diastolic murmur, not heard. RESPIRATORY: Respiratory effort, unlabored. Normal curvature. No thoracic deformity. No chest wall tenderness. Percussion, resonant. Auscultation, clear. No wheezes, no rales, no rhonchi. ABDOMEN: Soft, nondistended, nontender. No abdominal pain, no vomiting and normal appetite. MUSCULOSKELETAL: No joint tenderness, normal gait, normal tone. SKIN: Warm and dry. OVERALL IMPRESSION: Dehydration with acute renal insufficiency. This may be the only reason that the cardiac enzymes are elevated, but he does have a past history of coronary artery disease, dysrhythmia and did have syncope. At this time, we will observe on telemetry. We will get an echocardiogram. If he has no further arrhythmias, only treat medically. If he has further dysrhythmias or troponin goes higher or he develops chest pain, we would consider repeat CONSULT REPORT [id number] ED ABEBE coronary angiography. TRANSINT:[id number] Voice Confirmation ID: [id number] DOCUMENT ID: [id number] MAYRA MORRIS MD at 1041 CC: [id number] DICTATION DATE: 05/08/19 1231 SEED POTATO ARRANGER: 05/08/19 1315 ADM IN [facility] [address] [place] [id number]
--- NOTE | 2019-05-14 10:41 | EC ---
PATIENT:ED VEGA DATE OF SERVICE: 05/08/19 SEX: M MEDICAL RECORD: [id number] DATE OF : 44 LOCATION:D.M2 D.210 AGE OF PATIENT: 78 ADMISSION DATE: 05/08/19 REFERRING PHYSICIAN: INTERPRETING PHYSICIAN: MAYRA NEGRETE MD ECHOCARDIOGRAM REPORT ECHO CHARGES 5 ECHO LIMITED Date: 05/08/19 1 DOPPLER ECHO COLOR FLOW 2 DOPPLER ECHO PULSE CLINICAL DIAGNOSIS: SOB/SYNCOPE ECHOCARDIOGRAPHIC MEASUREMENTS (adult normal given) AC root (d.<3.7cm) 0 cm LV Septum d (<1.2 cm> 0 cm Valve Excursion 0 cm LV Septum (systole) 0 cm Left Atria (s.<4.0cm> 0 cm LVPW d(<1.2cm) 0 cm RV (d.<2.3cm) 0 cm LVPW (sytole) 0 cm LV diastole(<5.6CM) 0 cm MV E-F(>70mm/sec) 0 cm LV systole 0 cm LVOT Diameter 0 cm MV exc.(>10mm) 0 cm Est.ejection fraction (50-75%) % DOPPLER: LVIT 0 cm/sec A 0 cm/sec E 0 cm/sec LA 0 cm/sec RVSP 20.0 mmHg LVOT 0 cm/sec AOP1/2T 0 m/s Asc. Ao 0 cm/sec RVOT 0 cm/sec RA 0 cm/sec PA 0 cm/sec AV Gradient Peak 0 mmHg AV Mean 0 mmHg AV Area 0 cm MV Gradient Peak 0 mmHg MV Mean 0 mmHg MV Area 0 cm COMMENTS: LIMITED STUDY (2-D,COLOR,DOPPLER) COMPLETE ECHO DONE ON 04/23/19 Brazing Machine Operator: 1 NINA DUBONOE Calciner Feeder: 1 Dr. Negrete TAPE# PACS Pericardial Effusion N DATE OF SERVICE: FINDINGS: 1. Left ventricular chamber size is within normal limits. Left ventricular systolic function is mildly reduced at 40% to 45%. 2. Left atrium, right atrium, and right ventricular chamber sizes are within normal limits. 3. Valvular structures have normal structure and motion. 4. Doppler interrogation reveals no significant valvular insufficiency or stenosis and pulmonary systolic pressure is normal estimated at 20 mmHg. ECHOCARDIOGRAM REPORT [id number] ED VEGA 5. No evidence of pericardial effusion or left ventricular thrombus. TRANSINT:[id number] Voice Confirmation ID: [id number] DOCUMENT ID: [id number] MAYRA NEGRETE MD at 1041 CC: [id number] DICTATION DATE: 05/09/19811 SERVICE DESK AGENT: 05/09/19 08 ADM IN [facility] [address] [place] [address]
--- NOTE | 2019-05-14 10:48 | NUR ---
Nutrition Follow-up: Pt refused breakfast this AM stating "nothing sounds good". Does not want nutrition supplements. Per MD, pt to start Lexapro. Diet: Renal PO intake: 0% this AM; 25-50% yesterday No new wt Last BM: 05/12 per pt Labs noted: BUN 8, Cre 0.9, GFR 87, K+ 3.7, Ca 7.7 Meds noted: Megace, NS @ 100 -Rec cardiac diet; renal labs normalized. -Encourage PO intake. -May consider Procalamine. -RD following.
[2019-05-14 12:08] VITALS: BP 107/71
--- NOTE | 2019-05-14 13:14 | MORECARE ---
CASE MANAGEMENT DISCHARGE SUMMARY PATIENT: ED VEGA UNIT: [id number] ADM DATE: 05/08/19 AGE: 78 : 42 SEX: M ROOM/BED: D.2103 AUTHOR: UGILLAUME,DOC PHYSICIAN: REFERRING PHYSICIAN: JUAN C RAMON MD DATE OF SERVICE: 05/14/19 Discharge Plan Patient Name: ED VEGA [facility] : 1940 Planned Disposition: Inpatient Rehab Anticipated Discharge Date: 05/14/19 Discharge Date: Expected LOS: 6 Initial Reviewer: [id number] Initial Review Date: 05/08/2019 Generated: 05/14/19 2:14 pm DCP- Discharge Planning Updated by [email or web address]: Rowdy Stephen on 05/13/19 1:[address] Patient Name: ED VEGA Encounter No: [id number] : 1940 Primary Insurance: [employer] ADV Anticipated DC Date: 05-14-2019 Planned Disposition: Inpatient Rehab External Planned Provider: [facility] INPATIENT REH[facility] DCP follow-up note: CM RECEIVED REQUEST TO MEET WITH PT AND FAMILY IN ROOM. CM WAS NOT ABLE TO MEET WITH FAMILY DURING REQUESTED TIME DUE TO HAVING TO ATTEND "MDT" MEETING. CM SPOKE TO PT IN ROOM AFTER MEETING, FAMILY HAD DEPARTED. PT STATES HE WAS THINKING ABOUT REHAB BUT REALLY WANTS TO GO HOME, PT LIVES ALONE, FAMILY CHECKS ON HIM. PT STATES THAT WHEN HE GOES HOME, HE THINKS HE NEEDS OXYGEN AND A WHEELCHAIR. PT ASKED CM TO CALL HIS SON REGARDING PLANNING. CM CALLED ED LUNAJR. Steven, , WHO WAS CONCERNED ABOUT PT GOING HOME ALONE AND FEELS PT NEEDS REHAB AGAIN. PT JUST GOT OUT OF REHAB AND REFUSES TO GO TO A SNF FACILITY FOR REHAB OR MOVE INTO THE SON'S HOME FOR ASSISTANCE. THEY WANT HIM TO HAVE REHAB AT [place] IF POSSIBLE. CM SPOKE TO PT IN ROOM WHO IS AGREEABLE FOR REHAB AT [place] BUT WILL NOT CONSENT FOR NURSING FACILITY / SNF FACILITY. PT STATES IF INSURANCE WILL NOT PAY FOR INPATIENT AT [place], HE WILL GO HOME WITH HOME HEALTH. CM OBTAINED ORDERS FOR INPATIENT REHAB PRESCREENING AND OCCUPATIONAL THERAPY EVALUATION. YOLANDA SPOKE TO COMPA WHO INFORMED CM THAT PT JUST LEFT INPATIENT REHAB RECENTLY AND IS DOUBTFUL THAT PT'S MANAGED MEDICARE WILL APPROVE AGAIN, BUT SHE WILL SUBMIT FOR AUTHORIZATION REQUEST WHEN OCCUPATIONAL THERAPY EVALUATION IS COMPLETED. CM WAITING OCCUPATIONAL THERAPY EVALUATION WELL INSURANCE AUTHORIZATION FOR INPATIENT REHAB AT [place]. Rowdy Stephen, CASE MANAGEMENT DCP- Discharge Planning Updated by [email or web address]: Rowdy Stephen on 05/09/19 5:[address] Patient Name: ED VEGA Admission Status: ER Accout number: [id number] Admission Date: 05-08-2019 : 1940 Admission Diagnosis: Attending: JUAN C RAMON Current LOS: 1 Anticipated DC Date: Planned Disposition: INPATIENT REHAB Primary Insurance: [employer] MEDICARE ADV PLANNED EXTERNAL PROVIDER: [facility] INPATIENT REHAB Discharge Planning Comments: CM MET WITH PT IN ROOM TO DISCUSS DISCHARGE PLANNING AND NEEDS. PT REPORTS LIVING AT HOME INDEPENDENTLY AND ALONE. HE CAME BACK IN BECAUSE HE WAS WEAK, NOT FEELING WELL AND HIS LEGS ARE NOT WORKING. PT HAS A WALKER WITH NO MEDICAL EQUIPMENT PROVIDER PREFERENCE. PT WAS ARRANGED WITH [facility], BUT THEY DID NOT COME OUT BEFORE PT CAME BACK IN HOSPITAL. CM DISCUSSED AVAILABILITY OF HOME HEALTH, REHAB SERVICES AND MEDICAL EQUIPMENT. PT STATES HE HOPES TO DISCHARGE HOME, BUT THINKS HE WILL NEED REHAB. PT WILL NOT CONSIDER SNF FACLITY FOR REHAB. PT STATES HE WANTS REHAB AT [place] AGAIN. CM EXPLAINED THAT PT HAS MANAGED MEDICARE AND WILL REQUIRE INSURANCE APPROVAL. PT REPORTS UNDERSTANDING. IF DECLINED REHAB, PT PLANS TO RETURN HOME AND WOULD LIKE HOME HEALTH WITH [facility]. PT WILL REQUIRED PHYSICAL AND OCCUPATIONAL THERAPY EVALUATIONS TO ASSESS NEED OF INPATIENT PHYSICAL THERAPY SERVICES. CM TO CONTINUE TO FOLLOW AND ASSIST NEEDED. Investor: Rowdy Stephen DCPIA - Discharge Planning Initial Assessment Updated by [id number]: Rowdy Stephen on 05/09/19 5:55 pm * Is the patient Alert and Oriented? Yes * How many steps to enter\\exit or inside your home? NONE * PCP DR. [facility] [place] * Pharmacy [facility] * Preadmission Environment Home Alone * ADLs Independent * Equipment Walker * Other Equipment NO MEDICAL EQUIPMENT PROVIDER PREFERENCE * List name and contact numbers for known caregivers / representatives who currently or will assist patient after discharge: ANAY VEGA, SON, * Verbal permission to speak to the caregivers and representatives has been obtained from the patient. N/A * Community resources currently utilized Home Health * Please name any agencies selected above. [facility] * Additional services required to return to the preadmission environment? No * Can the patient safely return to the preadmission environment? Yes * Has this patient been hospitalized within the prior 30 days at any hospital? Yes External Providers External Provider: [facility] Next Contact Date: 05/14/2019 Service Request Date: Service Type: Resolution: Reviewer: Comments: Last DP export: 05/13/19 1:19 Patient Name: ED VEGA Page 73841 at 1314 All edits/amendments must be made on the electronic document DICTATION DATE: 05/14/19 1313 WINDOWS SOFTWARE ENGINEER: ALLEN 05/14/19 1313 RPT#: [id number] DC DATE: STATUS: ADM IN [facility] [address] [place] [address] END OF REPORT
--- NOTE | 2019-05-14 13:30 | MORECARE ---
CASE MANAGEMENT DISCHARGE SUMMARY PATIENT: ED VEGA UNIT: [id number] ADM DATE: 05/08/19 AGE: 78 : 42 SEX: M ROOM/BED: D.2103 AUTHOR: GUILLAUME,DOC PHYSICIAN: REFERRING PHYSICIAN: JUAN C RAMON MD DATE OF SERVICE: 05/14/19 Discharge Plan [facility] ED [facility] [facility] 1940 Planned Disposition: Inpatient Rehab Anticipated Discharge Date: 05/14/19 Discharge Date: Expected LOS: 6 Initial Reviewer: [id number] Initial Review Date: 05/08/2019 Generated: 05/14/19 2:30 pm DCP- Discharge Planning Updated by [id number]: Rowdy Stephen on 05/13/19 1:[address] Patient Name: ED VEGA Encounter No: [id number] : 1940 Primary Insurance: [employer] MEDICARE ADV Anticipated DC Date: 05-14-2019 Planned Disposition: Inpatient Rehab External Planned Provider: [facility] DCP follow-up note: CM RECEIVED REQUEST TO MEET WITH PT AND FAMILY IN ROOM. CM WAS NOT ABLE TO MEET WITH FAMILY DURING REQUESTED TIME DUE TO HAVING TO ATTEND "MDT" MEETING. CM SPOKE TO PT IN ROOM AFTER MEETING, FAMILY HAD DEPARTED. PT STATES HE WAS THINKING ABOUT REHAB BUT REALLY WANTS TO GO HOME, PT LIVES ALONE, FAMILY CHECKS ON HIM. PT STATES THAT WHEN HE GOES HOME, HE THINKS HE NEEDS OXYGEN AND A WHEELCHAIR. PT ASKED CM TO CALL HIS SON REGARDING PLANNING. CM CALLED ED LUNAJR. Steven, , WHO WAS CONCERNED ABOUT PT GOING HOME ALONE AND FEELS PT NEEDS REHAB AGAIN. PT JUST GOT OUT OF REHAB AND REFUSES TO GO TO A SENIOR CARE FACILITY FOR REHAB OR MOVE INTO THE SON'S HOME FOR ASSISTANCE. THEY WANT HIM TO HAVE REHAB AT [place] IF POSSIBLE. CM SPOKE TO PT IN ROOM WHO IS AGREEABLE FOR REHAB AT [place] BUT WILL NOT CONSENT FOR NURSING FACILITY / SENIOR CARE FACILITY. PT STATES IF INSURANCE WILL NOT PAY FOR INPATIENT AT [place], HE WILL GO HOME WITH HOME HEALTH. CM OBTAINED ORDERS FOR INPATIENT REHAB PRESCREENING AND OCCUPATIONAL THERAPY EVALUATION. YOLANDA SPOKE TO COMPA WHO INFORMED CM THAT PT JUST LEFT INPATIENT REHAB RECENTLY AND IS DOUBTFUL THAT PT'S MANAGED MEDICARE WILL APPROVE AGAIN, BUT SHE WILL SUBMIT FOR AUTHORIZATION REQUEST WHEN OCCUPATIONAL THERAPY EVALUATION IS COMPLETED. CM WAITING OCCUPATIONAL THERAPY EVALUATION WELL INSURANCE AUTHORIZATION FOR INPATIENT REHAB AT [place]. Rowdy Stephen, CASE MANAGEMENT DCP- Discharge Planning Updated by [id number]: Rowdy Stephen on 05/09/19 5:[address] Patient Name: ED VEGA Admission Status: ER Accout number: [id number] Admission Date: 05-08-2019 : 1940 Admission Diagnosis: Attending: JUAN C RAMON Current LOS: 1 Anticipated DC Date: Planned Disposition: INPATIENT REHAB Primary Insurance: [employer] MEDICARE ADV PLANNED EXTERNAL PROVIDER: [facility] Discharge Planning Comments: CM MET WITH PT IN ROOM TO DISCUSS DISCHARGE PLANNING AND NEEDS. PT REPORTS LIVING AT HOME INDEPENDENTLY AND ALONE. HE CAME BACK IN BECAUSE HE WAS WEAK, NOT FEELING WELL AND HIS LEGS ARE NOT WORKING. PT HAS A WALKER WITH NO MEDICAL EQUIPMENT PROVIDER PREFERENCE. PT WAS ARRANGED WITH [facility], BUT THEY DID NOT COME OUT BEFORE PT CAME BACK IN HOSPITAL. CM DISCUSSED AVAILABILITY OF HOME HEALTH, REHAB SERVICES AND MEDICAL EQUIPMENT. PT STATES HE HOPES TO DISCHARGE HOME, BUT THINKS HE WILL NEED REHAB. PT WILL NOT CONSIDER SENIOR CARE FACLITY FOR REHAB. PT STATES HE WANTS REHAB AT [place] AGAIN. CM EXPLAINED THAT PT HAS MANAGED MEDICARE AND WILL REQUIRE INSURANCE APPROVAL. PT REPORTS UNDERSTANDING. IF DECLINED REHAB, PT PLANS TO RETURN HOME AND WOULD LIKE HOME HEALTH WITH [facility]. PT WILL REQUIRED PHYSICAL AND OCCUPATIONAL THERAPY EVALUATIONS TO ASSESS NEED OF INPATIENT PHYSICAL THERAPY SERVICES. CM TO CONTINUE TO FOLLOW AND ASSIST NEEDED. Astrochemist: Rowdy Stephen DCPIA - Discharge Planning Initial Assessment Updated by [id number]: oRwdy Stephen on 05/09/19 5:55 pm * Is the patient Alert and Oriented? Yes * How many steps to enter\\exit or inside your home? NONE * PCP [facility] * Pharmacy [facility] * Preadmission Environment Home Alone * ADLs Independent * Equipment Walker * Other Equipment NO MEDICAL EQUIPMENT PROVIDER PREFERENCE * List name and contact numbers for known caregivers / representatives who currently or will assist patient after discharge: ANAY VEGA, SON, * Verbal permission to speak to the caregivers and representatives has been obtained from the patient. N/A * Community resources currently utilized Home Health * Please name any agencies selected above. [facility] * Additional services required to return to the preadmission environment? No * Can the patient safely return to the preadmission environment? Yes * Has this patient been hospitalized within the prior 30 days at any hospital? Yes External Providers External Provider: [facility]ides [facility] Next Contact Date: 05/14/2019 Service Request Date: Service Type: Resolution: Reviewer: Comments: Last DP export: 05/14/19 12:14 Patient Name: ED VEGA Page 04238 at 1330 All edits/amendments must be made on the electronic document DICTATION DATE: 05/14/19 1330 STATISTICS MANAGER: ALLEN 05/14/19 1330 RPT#: [id number] DC DATE: STATUS: ADM IN [facility] [address] [place] [address] END OF REPORT
--- NOTE | 2019-05-14 13:39 | MORECARE ---
CASE MANAGEMENT DISCHARGE SUMMARY PATIENT: ED VEGA UNIT: [id number] ADM DATE: 05/08/19 AGE: 78 : 42 SEX: M ROOM/BED: D.2108 AUTHOR: GUILLAUME,DOC PHYSICIAN: REFERRING PHYSICIAN: JUAN C RAMON MD DATE OF SERVICE: 05/14/19 Discharge Plan Patient Name: ED VEGA [facility] [facility] 1940 Planned Disposition: Nursing Facility MIRIAN Cert Anticipated Discharge Date: 05/15/19 Discharge Date: Expected LOS: 7 Initial Reviewer: [id number] Initial Review Date: 05/08/2019 Generated: 05/14/19 2:39 pm DCP- Discharge Planning Updated by [id number]: Rowdy Stephen on 05/13/19 1:[address] Patient Name: ED VEGA Encounter No: [id number] : 1940 Primary Insurance: [employer] MEDICARE ADV Anticipated DC Date: 05-14-2019 Planned Disposition: Inpatient Rehab External Planned Provider: [facility] DCP follow-up note: CM RECEIVED REQUEST TO MEET WITH PT AND FAMILY IN ROOM. CM WAS NOT ABLE TO MEET WITH FAMILY DURING REQUESTED TIME DUE TO HAVING TO ATTEND "MDT" MEETING. CM SPOKE TO PT IN ROOM AFTER MEETING, FAMILY HAD DEPARTED. PT STATES HE WAS THINKING ABOUT REHAB BUT REALLY WANTS TO GO HOME, PT LIVES ALONE, FAMILY CHECKS ON HIM. PT STATES THAT WHEN HE GOES HOME, HE THINKS HE NEEDS OXYGEN AND A WHEELCHAIR. PT ASKED CM TO CALL HIS SON REGARDING PLANNING. CM CALLED ED JR. SILVIA, , WHO WAS CONCERNED ABOUT PT GOING HOME ALONE AND FEELS PT NEEDS REHAB AGAIN. PT JUST GOT OUT OF REHAB AND REFUSES TO GO TO A [facility] FACILITY FOR REHAB OR MOVE INTO THE SON'S HOME FOR ASSISTANCE. THEY WANT HIM TO HAVE REHAB AT [place] IF POSSIBLE. CM SPOKE TO PT IN ROOM WHO IS AGREEABLE FOR REHAB AT [place] BUT WILL NOT CONSENT FOR NURSING FACILITY / [facility] FACILITY. PT STATES IF INSURANCE WILL NOT PAY FOR INPATIENT AT [place], HE WILL GO HOME WITH HOME HEALTH. CM OBTAINED ORDERS FOR INPATIENT REHAB PRESCREENING AND OCCUPATIONAL THERAPY EVALUATION. CM SPOKE TO COMPA WHO INFORMED CM THAT PT JUST LEFT INPATIENT REHAB RECENTLY AND IS DOUBTFUL THAT PT'S MANAGED MEDICARE WILL APPROVE AGAIN, BUT SHE WILL SUBMIT FOR AUTHORIZATION REQUEST WHEN OCCUPATIONAL THERAPY EVALUATION IS COMPLETED. CM WAITING OCCUPATIONAL THERAPY EVALUATION WELL INSURANCE AUTHORIZATION FOR INPATIENT REHAB AT [place]. Rowdy Stephen, CASE MANAGEMENT DCP- Discharge Planning Updated by [id number]: Rowdy Stephen on 05/09/19 5:[address] Patient Name: ED VEGA Admission Status: ER Accout number: [id number] Admission Date: 05-08-2019 : 1940 Admission Diagnosis: Attending: JUAN C RAMON Current LOS: 1 Anticipated DC Date: Planned Disposition: INPATIENT REHAB Primary Insurance: [employer] MEDICARE ADV PLANNED EXTERNAL PROVIDER: [facility] Discharge Planning Comments: CM MET WITH PT IN ROOM TO DISCUSS DISCHARGE PLANNING AND NEEDS. PT REPORTS LIVING AT HOME INDEPENDENTLY AND ALONE. HE CAME BACK IN BECAUSE HE WAS WEAK, NOT FEELING WELL AND HIS LEGS ARE NOT WORKING. PT HAS A WALKER WITH NO MEDICAL EQUIPMENT PROVIDER PREFERENCE. PT WAS ARRANGED WITH [facility], BUT THEY DID NOT COME OUT BEFORE PT CAME BACK IN HOSPITAL. CM DISCUSSED AVAILABILITY OF HOME HEALTH, REHAB SERVICES AND MEDICAL EQUIPMENT. PT STATES HE HOPES TO DISCHARGE HOME, BUT THINKS HE WILL NEED REHAB. PT WILL NOT CONSIDER [facility] FACLITY FOR REHAB. PT STATES HE WANTS REHAB AT [place] AGAIN. CM EXPLAINED THAT PT HAS MANAGED MEDICARE AND WILL REQUIRE INSURANCE APPROVAL. PT REPORTS UNDERSTANDING. IF DECLINED REHAB, PT PLANS TO RETURN HOME AND WOULD LIKE HOME HEALTH WITH [facility]. PT WILL REQUIRED PHYSICAL AND OCCUPATIONAL THERAPY EVALUATIONS TO ASSESS NEED OF INPATIENT PHYSICAL THERAPY SERVICES. CM TO CONTINUE TO FOLLOW AND ASSIST NEEDED. Corporate Recycling Manager: Rowdy Stephen DCPIA - Discharge Planning Initial Assessment Updated by [id number]: Rowdy Stephen on 05/09/19 5:55 pm * Is the patient Alert and Oriented? Yes * How many steps to enter\\exit or inside your home? NONE * PCP [facility] * [facility] * Preadmission Environment Home Alone * ADLs Independent * Equipment Walker * Other Equipment NO MEDICAL EQUIPMENT PROVIDER PREFERENCE * List name and contact numbers for known caregivers / representatives who currently or will assist patient after discharge: ANAY VEGA, SON, * Verbal permission to speak to the caregivers and representatives has been obtained from the patient. N/A * Community resources currently utilized Home Health * Please name any agencies selected above. [facility] * Additional services required to return to the preadmission environment? No * Can the patient safely return to the preadmission environment? Yes * Has this patient been hospitalized within the prior 30 days at any hospital? Yes Coverage Notice Reviewer: [email or web address] Stephen Notice Issued Date-Time: 05/14/2019 11:05 Notice Type: Patient Choice Letter Notice Delivered To: Patient Relationship to Patient: Pattern Marking Supervisor Name: Delivery Method: HAND - Hand Delivered Krissy Days: Prior Verbal Notification: Recipient Understood Notice: Yes Recipient Signature: Yes Med Rec Note Co-signed by Attending: Coverage Notice Comment: [facility] Reviewer: [id number] Pedro Stephen Notice Issued Date-Time: 05/14/2019 11:05 Notice Type: IM Discharge Notice Notice Delivered To: Patient Relationship to Patient: Pattern Marking Supervisor Name: Delivery Method: HAND - Hand Delivered Krissy Days: Prior Verbal Notification: Recipient Understood Notice: Yes Recipient Signature: Yes Med Rec Note Co-signed by Attending: Coverage Notice Comment: Last DP export: 05/14/19 12:30 Patient Name: ED VEGA Page [id number] at 1339 All edits/amendments must be made on the electronic document DICTATION DATE: 05/14/191338 DRAFTER CARTOGRAPHIC: ALLEN 05/14/19 1339 RPT#: [id number] DC DATE: STATUS: [facility] [address] [place] [address] END OF REPORT
--- NOTE | 2019-05-14 13:57 | MORECARE ---
CASE MANAGEMENT DISCHARGE SUMMARY PATIENT: ED VEGA UNIT: [id number] ADM DATE: 05/08/19 AGE: 78 : 42 SEX: M ROOM/BED: D.210 AUTHOR: GUILLAUME,DOC PHYSICIAN: REFERRING PHYSICIAN: JUAN C RAMON MD DATE OF SERVICE: 05/14/19 Discharge Plan Patient Name: ED VEGA [facility] [facility] 1940 Planned Disposition: Nursing Facility MIRIAN Cert Anticipated Discharge Date: 05/15/19 Discharge Date: Expected LOS: 7 Initial Reviewer: [id number] Initial Review Date: 05/08/2019 Generated: 05/14/19 2:57 pm Comments DCP- Discharge Planning Updated by [id number]: Rowdy Stephen on 05/14/19 12:[address] Patient Name: ED VEGA Admission Status: ER Accout number: [id number] Admission Date: 05-08-2019 : 1940 Admission Diagnosis: Attending: JUAN C RAMON Current LOS: 6 Anticipated DC Date: 05-15-2019 Planned Disposition: Nursing Facility MIRIAN Cert Primary Insurance: [employer] MEDICARE ADV PLANNED EXTERNAL PROVIDER: [facility] WITH [facility], [employer] MEDICAID BED Discharge Planning Comments: CM SPOKE TO COMPA OF [facility] INPATIENT REHAB WHO INFORMED TREATMENT TEAM AT INTERDISCIPLINARY TEAM MEETING THAT PT WILL NOT QUALIFY FOR INPATIENT REHAB AFTER HEARING THERAPY RESULT OF 250 FEET WITH 20% ASSIST. CM LATER RECEIVED REQUEST TO MEET WITH PT AND FAMILY IN ROOM. PT REPORTS HE HAS DECIDED TO GO TO [facility] WITH [facility], HE HAS CALLED AND DISCUSSED WITH BOTH. CHOICE SIGNED. IMPORTANT MESSAGE FROM MEDICARE PROVIDED AND EXPLAINED. CM CALLED [facility], , LEFT MESSAGE FOR [facility] WHO HAS ALREADY SPOKEN TO PT. CM FAXED HOSPICE REFERRAL TO [facility] AT [phone]. CM CALLED [facility], , SPOKE TO TRIP WHO WILL REVIEW PT'S REFERRAL; THEY PLAN TO ACCEPT PENDING PSYCHOLOGICAL EVALUATION RESULTS AND NEED TO DETERMINE IF PT NEEDS HONORIO SCREENING. CM FAXED REFERRAL TO [facility] AT [phone]. CM SPOKE TO AHMET DIAZ, UPDATED ON SITUATION AND PT'S REQUEST FOR CARE HOME PLACEMENT WITH HOSPICE; RECEIVED ORDERS TO [facility] AND FOR HOSPICE EVALUATION. CM CALLED [facility] TO NOTIFY TRIP THAT PT WILL NOT RECEIVE [facility] CONSULT, TRIP ADVISED THAT THEY WILL NEED DOCTOR TO NOTE WHY PT IS NOT NEEDING [facility] CONSULT NOW AND IT WOULD BE HELPFUL TO HAVE REASON FOR LEXAPRO MEDICATION NOTED. CM NOTIFIED AHMET DIAZ. CM WAITING ADMISSION DETERMINATION FROM [facility] AND [facility]. Reproductive Endocrinologist: Rowdy Stephen DCP- Discharge Planning Updated by [id number]: Rowdy Stephen on 05/13/19 1:[address] Patient Name: ED VEGA Encounter No: [id number] : 1940 Primary Insurance: [employer] MEDICARE ADV Anticipated DC Date: 05-14-2019 Planned Disposition: Inpatient Rehab External Planned Provider: [facility] INPATIENT REH[facility] DCP follow-up note: CM RECEIVED REQUEST TO MEET WITH PT AND FAMILY IN ROOM. CM WAS NOT ABLE TO MEET WITH FAMILY DURING REQUESTED TIME DUE TO HAVING TO ATTEND "MDT" MEETING. CM SPOKE TO PT IN ROOM AFTER MEETING, FAMILY HAD DEPARTED. PT STATES HE WAS THINKING ABOUT REHAB BUT REALLY WANTS TO GO HOME, PT LIVES ALONE, FAMILY CHECKS ON HIM. PT STATES THAT WHEN HE GOES HOME, HE THINKS HE NEEDS OXYGEN AND A WHEELCHAIR. PT ASKED CM TO CALL HIS SON REGARDING PLANNING. CM CALLED ED VEGA JR., , WHO WAS CONCERNED ABOUT PT GOING HOME ALONE AND FEELS PT NEEDS REHAB AGAIN. PT JUST GOT OUT OF REHAB AND REFUSES TO GO TO A DETENTION FACILITY FOR REHAB OR MOVE INTO THE SON'S HOME FOR ASSISTANCE. THEY WANT HIM TO HAVE REHAB AT [place] IF POSSIBLE. CM SPOKE TO PT IN ROOM WHO IS AGREEABLE FOR REHAB AT [place] BUT WILL NOT CONSENT FOR NURSING FACILITY / DETENTION FACILITY. PT STATES IF INSURANCE WILL NOT PAY FOR INPATIENT AT [place], HE WILL GO HOME WITH HOME HEALTH. CM OBTAINED ORDERS FOR INPATIENT REHAB PRESCREENING AND OCCUPATIONAL THERAPY EVALUATION. CM SPOKE TO COMPA WHO INFORMED CM THAT PT JUST LEFT INPATIENT REHAB RECENTLY AND IS DOUBTFUL THAT PT'S MANAGED MEDICARE WILL APPROVE AGAIN, BUT SHE WILL SUBMIT FOR AUTHORIZATION REQUEST WHEN OCCUPATIONAL THERAPY EVALUATION IS COMPLETED. CM WAITING OCCUPATIONAL THERAPY EVALUATION WELL INSURANCE AUTHORIZATION FOR INPATIENT REHAB AT [place]. Rowdy Stephen, CASE MANAGEMENT DCP- Discharge Planning Updated by [id number]: Rowdy Stephen on 05/09/19 5:[address] Patient Name: ED VEGA Admission Status: ER Accout number: [id number] Admission Date: 05-08-2019 : 1940 Admission Diagnosis: Attending: JUAN C RAMON Current LOS: 1 Anticipated DC Date: Planned Disposition: INPATIENT REHAB Primary Insurance: [employer] MEDICARE ADV PLANNED EXTERNAL PROVIDER: [facility] INPATIENT REHAB Discharge Planning Comments: CM MET WITH PT IN ROOM TO DISCUSS DISCHARGE PLANNING AND NEEDS. PT REPORTS LIVING AT HOME INDEPENDENTLY AND ALONE. HE CAME BACK IN BECAUSE HE WAS WEAK, NOT FEELING WELL AND HIS LEGS ARE NOT WORKING. PT HAS A WALKER WITH NO MEDICAL EQUIPMENT PROVIDER PREFERENCE. PT WAS ARRANGED WITH [facility], BUT THEY DID NOT COME OUT BEFORE PT CAME BACK IN HOSPITAL. CM DISCUSSED AVAILABILITY OF HOME HEALTH, REHAB SERVICES AND MEDICAL EQUIPMENT. PT STATES HE HOPES TO DISCHARGE HOME, BUT THINKS HE WILL NEED REHAB. PT WILL NOT CONSIDER DETENTION FACLITY FOR REHAB. PT STATES HE WANTS REHAB AT [place] AGAIN. CM EXPLAINED THAT PT HAS MANAGED MEDICARE AND WILL REQUIRE INSURANCE APPROVAL. PT REPORTS UNDERSTANDING. IF DECLINED REHAB, PT PLANS TO RETURN HOME AND WOULD LIKE HOME HEALTH WITH [facility]. PT WILL REQUIRED PHYSICAL AND OCCUPATIONAL THERAPY EVALUATIONS TO ASSESS NEED OF INPATIENT PHYSICAL THERAPY SERVICES. CM TO CONTINUE TO FOLLOW AND ASSIST NEEDED. Reproductive Endocrinologist: Rowdy Stephen DCPIA - Discharge Planning Initial Assessment Updated by [id number]: Rowdy Stephen on 05/09/19 5:55 pm * Is the patient Alert and Oriented? Yes * How many steps to enter\\exit or inside your home? NONE * [facility] * Pharm[facility] * Preadmission Environment Home Alone * ADLs Independent * Equipment Walker * Other Equipment NO MEDICAL EQUIPMENT PROVIDER PREFERENCE * List name and contact numbers for known caregivers / representatives who currently or will assist patient after discharge: ANAY VEGA, SON, * Verbal permission to speak to the caregivers and representatives has been obtained from the patient. N/A * Community resources currently utilized Home Health * Please name any agencies selected above. [facility] * Additional services required to return to the preadmission environment? No * Can the patient safely return to the preadmission environment? Yes * Has this patient been hospitalized within the prior 30 days at any hospital? Yes Coverage Notice Reviewer: [id number] Pedro Stephen Notice Issued Date-Time: 05/14/2019 11:05 Notice Type: Patient Choice Letter Notice Delivered To: Patient Relationship to Patient: Hadoop Infrastructure Architect Name: Delivery Method: HAND - Hand Delivered Krissy Days: Prior Verbal Notification: Recipient Understood Notice: Yes Recipient Signature: Yes Med Rec Note Co-signed by Attending: Coverage Notice Comment: [facility] Reviewer: [id number] Pedro Stephen Notice Issued Date-Time: 05/14/2019 11:05 Notice Type: IM Discharge Notice Notice Delivered To: Patient Relationship to Patient: Hadoop Infrastructure Architect Name: Delivery Method: HAND - Hand Delivered Krissy Days: Prior Verbal Notification: Recipient Understood Notice: Yes Recipient Signature: Yes Med Rec Note Co-signed by Attending: Coverage Notice Comment: Last DP export: 05/14/19 12:39 Patient Name: ED VEGA Page [id number] at 1357 All edits/amendments must be made on the electronic document DICTATION DATE: 05/14/19 135 INSPECTOR SCALES: ALLEN 05/14/19 1357 RPT#: [id number] DC DATE: STATUS: ADM IN [facility] [address] [place] [address] END OF REPORT
--- NOTE | 2019-05-14 14:00 | NUR ---
IV LEAKING AND DC'D WITH CATH TIP INTACT. RESTARTED IN RIGHT FOREARM WITH 22 GAUGE X 2 ATTEMPTS. PT TOLERATED WELL.
--- NOTE | 2019-05-14 15:11 | NUR ---
I have reviewed this patient and I concur with the Shift Assessment completed by the Licensed Practical Nurse today this shift.
--- NOTE | 2019-05-14 15:41 | NUR ---
OT NOTE: PT COMPLETED BED MOB WITH SBA. PT COMPLETED ADL MOB WITH RW WITH CGA. PT COMPLETED FACE WASH WITH SET UP. PT COMPLETED HYGIENE TASK WITH LESLI Shah THANK YOU,TAYLOR AGUERO
[2019-05-14 17:11] VITALS: BP 79/55
[2019-05-14 20:38] VITALS: BP 97/63
[2019-05-15 04:56] VITALS: BP 94/55
--- NOTE | 2019-05-15 07:37 | NUR ---
REPORT RECEIVED. WILL CONTINUE WITH POC. PT CURRENTLY LYING SEMI FOWLERS. CALL LIGHT W/I REACH. PT IS AAO AND UP WITH ASSIST. RR EVEN AND UNLABORED ON RA. NS INFUSING @100ML/HR VIA R.FOR PIV. NO S/S OF DISTRESS NOTED. PT DENIES ANY NEEDS. WILL CTM.
[2019-05-15 12:20] VITALS: BP 128/69
[2019-05-15] MEDS ORDERED: LEXAPRO10 MG PO (12:26)
[2019-05-15 12:27] VITALS: BP 90/67
--- NOTE | 2019-05-15 13:57 | NUR ---
OT NOTE: BED MOB WITH SBA; TRANSFERS AND IN ROOM AMBULATION WITH CGA. SIMPLE GROOMING AND DONNING GOWN WITH SET UP. ELEANOR LARSEN, OTR/L
--- NOTE | 2019-05-15 14:36 | MORECARE ---
CASE MANAGEMENT DISCHARGE SUMMARY PATIENT: ED VEGA UNIT: [id number] ADM DATE: 05/08/19 AGE: 78 : 42 SEX: M ROOM/BED: D.2105 AUTHOR: GUILLAUME,DOC PHYSICIAN: REFERRING PHYSICIAN: JUAN C ARMON MD DATE OF SERVICE: 05/15/19 Discharge Plan Patient Name: ED VEGA Facility: [facility]:[place] : 1940 Planned Disposition: Nursing Facility MIRIAN Cert Anticipated Discharge Date: 05/16/19 Discharge Date: Expected LOS: 8 Initial Reviewer: [id number] Initial Review Date: 05/08/2019 Generated: 05/15/19 3:35 pm Comments DCP- Discharge Planning Updated by [id number]: Rowdy Stephen on 05/15/19 1:[address] Patient Name: ED VEGA Encounter No: [id number] : 1940 Primary Insurance: [employer] MEDICARE ADV Anticipated DC Date: 05-16-2019 Planned Disposition: Nursing Facility MIRIAN Cert External Planned Provider: [facility] WITH [facility], [facility] CARE MEDICAID BED Discharge Planning Comments: CM RECEIVED DISCHARGE INFORMATION, FAXED TO [facility] AND [facility]. CM RECEIVED CALL FROM TR[facility], THEY WILL ACCEPT PT TOMORROW AND CANNOT ACCEPT TODAY THEY HAVE TWO ADMITS THEY ARE WORKING ON AND CANNOT DO ANOTHER TODAY. THEY WILL COPPING MACHINE OPERATOR AT 0900, 05-15-19. CM NOTIFIED PT AND INSURANCE PROFESSIONAL NURSE. CM RECEIVED CALL FROM [facility] WHO INFORMED CM THEY WILL ADMIT TOMORROW AT [facility] AFTER HIS ARRIVAL. FOR DISCHARGE CALL NURSE REPORT TO [facility], , [facility] TO COPPING MACHINE OPERATOR PT 05-16-19 AT 0900 HOURS. TRENT PARKS DCP- Discharge Planning Updated by [id number]: Rowdy Stephen on 05/14/19 12:[address] Patient Name: ED VEGA Admission Status: ER Accout number: [id number] Admission Date: 05-08-2019 : 1940 Admission Diagnosis: Attending: DWORKIN, JUAN C Current LOS: 6 Anticipated DC Date: 05-15-2019 Planned Disposition: Nursing Facility MIRIAN Cert Primary Insurance: [employer] MEDICARE ADV PLANNED EXTERNAL PROVIDER: [facility] WITH [facility], [employer] CARE MEDICAID BED Discharge Planning Comments: CM SPOKE TO COMPA OF [facility] INPATIENT REHAB WHO INFORMED TREATMENT TEAM AT INTERDISCIPLINARY TEAM MEETING THAT PT WILL NOT QUALIFY FOR INPATIENT REHAB AFTER HEARING THERAPY RESULT OF 250 FEET WITH 20% ASSIST. CM LATER RECEIVED REQUEST TO MEET WITH PT AND FAMILY IN ROOM. PT REPORTS HE HAS DECIDED TO GO TO [facility] WITH [facility], HE HAS CALLED AND DISCUSSED WITH BOTH. CHOICE SIGNED. IMPORTANT MESSAGE FROM MEDICARE PROVIDED AND EXPLAINED. CM CALLED [facility], , LEFT MESSAGE FOR [facility] WHO HAS ALREADY SPOKEN TO PT. CM FAXED HOSPICE REFERRAL TO [facility] AT [phone]. CM CALLED [facility], , SPOKE TO TRIP WHO WILL REVIEW PT'S REFERRAL; THEY PLAN TO ACCEPT PENDING PSYCHOLOGICAL EVALUATION RESULTS AND NEED TO DETERMINE IF PT NEEDS HONORIO SCREENING. CM FAXED REFERRAL TO [facility] AT [phone]. CM SPOKE TO AHMET DIAZ, UPDATED ON SITUATION AND PT'S REQUEST FOR CUSTODIAL PLACEMENT WITH HOSPICE; RECEIVED ORDERS TO CANCEL JOSE PSYCH CONSULT AND FOR HOSPICE EVALUATION. CM CALLED [facility] TO NOTIFY TRIP THAT PT WILL NOT RECEIVE JOSE PSYCH CONSULT, TRIP ADVISED THAT THEY WILL NEED DOCTOR TO NOTE WHY PT IS NOT NEEDING JOSE PSYCH CONSULT NOW AND IT WOULD BE HELPFUL TO HAVE REASON FOR LEXAPRO MEDICATION NOTED. CM NOTIFIED AHMET DIAZ. CM WAITING ADMISSION DETERMINATION FROM [facility] AND [facility]. Bundle Wrapper: Rowdy Stephen DCP- Discharge Planning Updated by [id number]: Rowdy Stephen on 05/13/19 1:[address] Patient Name: ED VEGA Encounter No: [id number] : 1940 Primary Insurance: WELLCARE MEDICARE ADV Anticipated DC Date: 05-14-2019 Planned Disposition: Inpatient Rehab External Planned Provider: [facility] INPATIENT REHAB DCP follow-up note: CM RECEIVED REQUEST TO MEET WITH PT AND FAMILY IN ROOM. CM WAS NOT ABLE TO MEET WITH FAMILY DURING REQUESTED TIME DUE TO HAVING TO ATTEND "MDT" MEETING. CM SPOKE TO PT IN ROOM AFTER MEETING, FAMILY HAD DEPARTED. PT STATES HE WAS THINKING ABOUT REHAB BUT REALLY WANTS TO GO HOME, PT LIVES ALONE, FAMILY CHECKS ON HIM. PT STATES THAT WHEN HE GOES HOME, HE THINKS HE NEEDS OXYGEN AND A WHEELCHAIR. PT ASKED CM TO CALL HIS SON REGARDING PLANNING. CM CALLED ED VEGA JR., , WHO WAS CONCERNED ABOUT PT GOING HOME ALONE AND FEELS PT NEEDS REHAB AGAIN. PT JUST GOT OUT OF REHAB AND REFUSES TO GO TO A LONGTERM FACILITY FOR REHAB OR MOVE INTO THE SON'S HOME FOR ASSISTANCE. THEY WANT HIM TO HAVE REHAB AT [place] IF POSSIBLE. CM SPOKE TO PT IN ROOM WHO IS AGREEABLE FOR REHAB AT [place] BUT WILL NOT CONSENT FOR NURSING FACILITY / LONGTERM FACILITY. PT STATES IF INSURANCE WILL NOT PAY FOR INPATIENT AT [place], HE WILL GO HOME WITH HOME HEALTH. CM OBTAINED ORDERS FOR INPATIENT REHAB PRESCREENING AND OCCUPATIONAL THERAPY EVALUATION. CM SPOKE TO COMPA WHO INFORMED CM THAT PT JUST LEFT INPATIENT REHAB RECENTLY AND IS DOUBTFUL THAT PT'S MANAGED MEDICARE WILL APPROVE AGAIN, BUT SHE WILL SUBMIT FOR AUTHORIZATION REQUEST WHEN OCCUPATIONAL THERAPY EVALUATION IS COMPLETED. CM WAITING OCCUPATIONAL THERAPY EVALUATION WELL INSURANCE AUTHORIZATION FOR INPATIENT REHAB AT [place]. Rowdy Stephen, CASE MANAGEMENT DCP- Discharge Planning Updated by [id number]: Rowdy Stephen on 05/09/19 5:[address] Patient Name: ED VEGA Admission Status: ER Accout number: [id number] Admission Date: 05-08-2019 : 1940 Admission Diagnosis: Attending: JUAN C RAMON Current LOS: 1 Anticipated DC Date: Planned Disposition: INPATIENT REHAB Primary Insurance: [employer] MEDICARE ADV PLANNED EXTERNAL PROVIDER: [facility] INPATIENT REHAB Discharge Planning Comments: CM MET WITH PT IN ROOM TO DISCUSS DISCHARGE PLANNING AND NEEDS. PT REPORTS LIVING AT HOME INDEPENDENTLY AND ALONE. HE CAME BACK IN BECAUSE HE WAS WEAK, NOT FEELING WELL AND HIS LEGS ARE NOT WORKING. PT HAS A WALKER WITH NO MEDICAL EQUIPMENT PROVIDER PREFERENCE. PT WAS ARRANGED WITH [facility], BUT THEY DID NOT COME OUT BEFORE PT CAME BACK IN HOSPITAL. CM DISCUSSED AVAILABILITY OF HOME HEALTH, REHAB SERVICES AND MEDICAL EQUIPMENT. PT STATES HE HOPES TO DISCHARGE HOME, BUT THINKS HE WILL NEED REHAB. PT WILL NOT CONSIDER LONGTERM FACLITY FOR REHAB. PT STATES HE WANTS REHAB AT [place] AGAIN. CM EXPLAINED THAT PT HAS MANAGED MEDICARE AND WILL REQUIRE INSURANCE APPROVAL. PT REPORTS UNDERSTANDING. IF DECLINED REHAB, PT PLANS TO RETURN HOME AND WOULD LIKE HOME HEALTH WITH [facility]. PT WILL REQUIRED PHYSICAL AND OCCUPATIONAL THERAPY EVALUATIONS TO ASSESS NEED OF INPATIENT PHYSICAL THERAPY SERVICES. CM TO CONTINUE TO FOLLOW AND ASSIST NEEDED. Bundle Wrapper: Rowdy Stephen DCPIA - Discharge Planning Initial Assessment Updated by THONY: Rowdy Stephen on 05/09/19 5:55 pm * Is the patient Alert and Oriented? Yes * How many steps to enter\\exit or inside your home? NONE * PCP DR. GOOD NINEVEH * [facility] * Preadmission Environment Home Alone * ADLs Independent * Equipment Walker * Other Equipment NO MEDICAL EQUIPMENT PROVIDER PREFERENCE * List name and contact numbers for known caregivers / representatives who currently or will assist patient after discharge: ANAY VEGA, SON, * Verbal permission to speak to the caregivers and representatives has been obtained from the patient. N/A * Community resources currently utilized Home Health * Please name any agencies selected above. [facility] * Additional services required to return to the preadmission environment? No * Can the patient safely return to the preadmission environment? Yes * Has this patient been hospitalized within the prior 30 days at any hospital? Yes Coverage Notice Reviewer: [id number] Pedro Stephen Notice Issued Date-Time: 05/14/2019 11:05 Notice Type: Patient Choice Letter Notice Delivered To: Patient Relationship to Patient: Glass Beveller Name: Delivery Method: HAND - Hand Delivered Krissy Days: Prior Verbal Notification: Recipient Understood Notice: Yes Recipient Signature: Yes Med Rec Note Co-signed by Attending: Coverage Notice Comment: [facility] Reviewer: [id number] Pedro Stephen Notice Issued Date-Time: 05/14/2019 11:05 Notice Type: IM Discharge Notice Notice Delivered To: Patient Relationship to Patient: Glass Beveller Name: Delivery Method: HAND - Hand Delivered Krissy Days: Prior Verbal Notification: Recipient Understood Notice: Yes Recipient Signature: Yes Med Rec Note Co-signed by Attending: Coverage Notice Comment: Last DP export: 05/14/19 12:58 Patient Name: ED VEGA Page [id number] at 1436 All edits/amendments must be made on the electronic document DICTATION DATE: 05/15/191434 OR DIRECTOR: ALLEN 05/15/191434 RPT#: [id number] DC DATE: STATUS: ADM IN [facility] [address] [place] [address] END OF REPORT
--- NOTE | 2019-05-15 14:55 | NUR ---
OT NOTE: PT COMPLETED ADL MOB WITH RW AND REQUIRED SBA/CGA. PT COMPLETED DYNAMIC STANDING BALANCE ACTIVITIES WITH SBA/CGA. PT COMPLETED UB GROOMING/HYGIENE TASKS WITH SET UP. THANK YOU, TAYLOR AGUERO
--- NOTE | 2019-05-15 15:18 | MORECARE ---
CASE MANAGEMENT DISCHARGE SUMMARY PATIENT: ED VEGA UNIT: [id number] ADM DATE: 05/08/19 AGE: 78 : 42 SEX: M ROOM/BED: D.2102 AUTHOR: GUILLAUME,DOC PHYSICIAN: REFERRING PHYSICIAN: JUAN C RAMON MD DATE OF SERVICE: 05/15/19 Discharge Plan Patient Name: ED VEGA Facility: [facility]:[place] : 1940 Planned Disposition: Nursing Facility MIRIAN Cert Anticipated Discharge Date: 05/16/19 Discharge Date: Expected LOS: 8 Initial Reviewer: [id number] Initial Review Date: 05/08/2019 Generated: 05/15/19 4:17 pm Comments DCP- Discharge Planning Updated by [email or web address]: Rowdy Stephen on 05/15/19 1:[address] Patient Name: ED VEGA Encounter No: [id number] : 1940 Primary Insurance: WELLCARE MEDICARE ADV Anticipated DC Date: 05-16-2019 Planned Disposition: Nursing Facility MIRIAN Cert External Planned Provider: [facility] WITH [facility], RETIREMENT CARE MEDICAID BED Discharge Planning Comments: CM RECEIVED DISCHARGE INFORMATION, FAXED TO [facility] AND [facility]. CM RECEIVED CALL FROM [facility], THEY WILL ACCEPT PT TOMORROW AND CANNOT ACCEPT TODAY THEY HAVE TWO ADMITS THEY ARE WORKING ON AND CANNOT DO ANOTHER TODAY. THEY WILL GLYCERIN OPERATOR AT 0900, 05-15-19. CM NOTIFIED PT AND BIOMETRIC SCREENER NURSE. CM RECEIVED CALL FROM [facility] WHO INFORMED CM THEY WILL ADMIT TOMORROW AT [facility] AFTER HIS ARRIVAL. FOR DISCHARGE CALL NURSE REPORT TO [facility], , [place] TO GLYCERIN OPERATOR PT 05-16-19 AT 0900 HOURS. TRENT PARKS DCP- Discharge Planning Updated by [id number]: Rowdy Stephen on 05/14/19 12:[address] Patient Name: ED VEGA Admission Status: ER Accout number: [id number] Admission Date: 05-08-2019 : 1940 Admission Diagnosis: Attending: DWORKIN, JUAN C Current LOS: 6 Anticipated DC Date: 05-15-2019 Planned Disposition: Nursing Facility MIRIAN Cert Primary Insurance: WE[employer] MEDICARE ADV PLANNED EXTERNAL PROVIDER: [facility] WITH [facility], SUPPLY CHAIN COORDINATOR CARE MEDICAID BED Discharge Planning Comments: CM SPOKE TO COMPA OF [facility] INPATIENT REHAB WHO INFORMED TREATMENT TEAM AT INTERDISCIPLINARY TEAM MEETING THAT PT WILL NOT QUALIFY FOR INPATIENT REHAB AFTER HEARING THERAPY RESULT OF 250 FEET WITH 20% ASSIST. CM LATER RECEIVED REQUEST TO MEET WITH PT AND FAMILY IN ROOM. PT REPORTS HE HAS DECIDED TO GO TO [facility] WITH [facility], HE HAS CALLED AND DISCUSSED WITH BOTH. CHOICE SIGNED. IMPORTANT MESSAGE FROM MEDICARE PROVIDED AND EXPLAINED. CM CALLED [facility], , LEFT MESSAGE FOR [facility] WHO HAS ALREADY SPOKEN TO PT. CM FAXED HOSPICE REFERRAL TO [facility] AT [phone]. CM CALLED [facility], , SPOKE TO TRIP WHO WILL REVIEW PT'S REFERRAL; THEY PLAN TO ACCEPT PENDING PSYCHOLOGICAL EVALUATION RESULTS AND NEED TO DETERMINE IF PT NEEDS HONORIO SCREENING. CM FAXED REFERRAL TO [facility] AT [phone]. CM SPOKE TO AHMET DIAZ, UPDATED ON SITUATION AND PT'S REQUEST FOR CUSTODIAL PLACEMENT WITH HOSPICE; RECEIVED ORDERS TO CANCEL JOSE PSYCH CONSULT AND FOR HOSPICE EVALUATION. CM CALLED [facility] TO NOTIFY TRIP THAT PT WILL NOT RECEIVE JOSE PSYCH CONSULT, TRIP ADVISED THAT THEY WILL NEED DOCTOR TO NOTE WHY PT IS NOT NEEDING JOSE PSYCH CONSULT NOW AND IT WOULD BE HELPFUL TO HAVE REASON FOR LEXAPRO MEDICATION NOTED. CM NOTIFIED AHMET DIAZ. CM WAITING ADMISSION DETERMINATION FROM [facility] AND [facility]. Shellfish Meat Separator Operator: Rowdy Stephen DCP- Discharge Planning Updated by [id number]: Rowdy Stephen on 05/13/19 1:[address] Patient Name: ED VEGA Encounter No: [id number] : 1940 Primary Insurance: WELLCARE MEDICARE ADV Anticipated DC Date: 05-14-2019 Planned Disposition: Inpatient Rehab External Planned Provider: [facility] INPATIENT REHAB DCP follow-up note: CM RECEIVED REQUEST TO MEET WITH PT AND FAMILY IN ROOM. CM WAS NOT ABLE TO MEET WITH FAMILY DURING REQUESTED TIME DUE TO HAVING TO ATTEND "MDT" MEETING. CM SPOKE TO PT IN ROOM AFTER MEETING, FAMILY HAD DEPARTED. PT STATES HE WAS THINKING ABOUT REHAB BUT REALLY WANTS TO GO HOME, PT LIVES ALONE, FAMILY CHECKS ON HIM. PT STATES THAT WHEN HE GOES HOME, HE THINKS HE NEEDS OXYGEN AND A WHEELCHAIR. PT ASKED CM TO CALL HIS SON REGARDING PLANNING. CM CALLED ED VEGA JR., , WHO WAS CONCERNED ABOUT PT GOING HOME ALONE AND FEELS PT NEEDS REHAB AGAIN. PT JUST GOT OUT OF REHAB AND REFUSES TO GO TO A RESIDENTIAL FACILITY FOR REHAB OR MOVE INTO THE SON'S HOME FOR ASSISTANCE. THEY WANT HIM TO HAVE REHAB AT [place] IF POSSIBLE. CM SPOKE TO PT IN ROOM WHO IS AGREEABLE FOR REHAB AT [place] BUT WILL NOT CONSENT FOR NURSING FACILITY / RESIDENTIAL FACILITY. PT STATES IF INSURANCE WILL NOT PAY FOR INPATIENT AT [place], HE WILL GO HOME WITH HOME HEALTH. CM OBTAINED ORDERS FOR INPATIENT REHAB PRESCREENING AND OCCUPATIONAL THERAPY EVALUATION. CM SPOKE TO COMPA WHO INFORMED CM THAT PT JUST LEFT INPATIENT REHAB RECENTLY AND IS DOUBTFUL THAT PT'S MANAGED MEDICARE WILL APPROVE AGAIN, BUT SHE WILL SUBMIT FOR AUTHORIZATION REQUEST WHEN OCCUPATIONAL THERAPY EVALUATION IS COMPLETED. CM WAITING OCCUPATIONAL THERAPY EVALUATION WELL INSURANCE AUTHORIZATION FOR INPATIENT REHAB AT [place]. Rowdy Stephen, CASE MANAGEMENT DCP- Discharge Planning Updated by [id number]: Rowdy Stephen on 05/09/19 5:[address] Patient Name: ED VEGA Admission Status: ER Accout number: [id number] Admission Date: 05-08-2019 : 1940 Admission Diagnosis: Attending: JUAN C RAMON Current LOS: 1 Anticipated DC Date: Planned Disposition: INPATIENT REHAB Primary Insurance: [employer] MEDICARE ADV PLANNED EXTERNAL PROVIDER: [facility] INPATIENT REHAB Discharge Planning Comments: CM MET WITH PT IN ROOM TO DISCUSS DISCHARGE PLANNING AND NEEDS. PT REPORTS LIVING AT HOME INDEPENDENTLY AND ALONE. HE CAME BACK IN BECAUSE HE WAS WEAK, NOT FEELING WELL AND HIS LEGS ARE NOT WORKING. PT HAS A WALKER WITH NO MEDICAL EQUIPMENT PROVIDER PREFERENCE. PT WAS ARRANGED WITH [facility] [email or web address] [facility], BUT THEY DID NOT COME OUT BEFORE PT CAME BACK IN HOSPITAL. CM DISCUSSED AVAILABILITY OF HOME HEALTH, REHAB SERVICES AND MEDICAL EQUIPMENT. PT STATES HE HOPES TO DISCHARGE HOME, BUT THINKS HE WILL NEED REHAB. PT WILL NOT CONSIDER RESIDENTIAL FACLITY FOR REHAB. PT STATES HE WANTS REHAB AT [place] AGAIN. CM EXPLAINED THAT PT HAS MANAGED MEDICARE AND WILL REQUIRE INSURANCE APPROVAL. PT REPORTS UNDERSTANDING. IF DECLINED REHAB, PT PLANS TO RETURN HOME AND WOULD LIKE HOME HEALTH WITH [facility]. PT WILL REQUIRED PHYSICAL AND OCCUPATIONAL THERAPY EVALUATIONS TO ASSESS NEED OF INPATIENT PHYSICAL THERAPY SERVICES. CM TO CONTINUE TO FOLLOW AND ASSIST NEEDED. Shellfish Meat Separator Operator: Rowdy Stephen DCPIA - Discharge Planning Initial Assessment Updated by THONY: Rowdy Stephen on 05/09/19 5:55 pm * Is the patient Alert and Oriented? Yes * How many steps to enter\\exit or inside your home? NONE * PCP DR. GOOD BOSLER * [facility] * Preadmission Environment Home Alone * ADLs Independent * Equipment Walker * Other Equipment NO MEDICAL EQUIPMENT PROVIDER PREFERENCE * List name and contact numbers for known caregivers / representatives who currently or will assist patient after discharge: ANAY VEGA, SON, * Verbal permission to speak to the caregivers and representatives has been obtained from the patient. N/A * Community resources currently utilized Home Health * Please name any agencies selected above. [facility] * Additional services required to return to the preadmission environment? No * Can the patient safely return to the preadmission environment? Yes * Has this patient been hospitalized within the prior 30 days at any hospital? Yes Coverage Notice Reviewer: [id number] Pedro Stephen Notice Issued Date-Time: 05/14/2019 11:05 Notice Type: Patient Choice Letter Notice Delivered To: Patient Relationship to Patient: Vacuum Forming Machine Operator Name: Delivery Method: HAND - Hand Delivered Krissy Days: Prior Verbal Notification: Recipient Understood Notice: Yes Recipient Signature: Yes Med Rec Note Co-signed by Attending: Coverage Notice Comment: [facility] Reviewer: [id number] Pedro Stephen Notice Issued Date-Time: 05/14/2019 11:05 Notice Type: IM Discharge Notice Notice Delivered To: Patient Relationship to Patient: Vacuum Forming Machine Operator Name: Delivery Method: HAND - Hand Delivered Krissy Days: Prior Verbal Notification: Recipient Understood Notice: Yes Recipient Signature: Yes Med Rec Note Co-signed by Attending: Coverage Notice Comment: Last DP export: 05/15/19 1:36 Patient Name: ED VEGA Page [id number] at 1518 All edits/amendments must be made on the electronic document DICTATION DATE: 05/15/191516 LINE BUILDER: ALLEN 05/15/191516 RPT#: [id number] DC DATE: STATUS: ADM IN [facility] [address] [place] [address] END OF REPORT
[2019-05-15 15:58] VITALS: BP 112/63
--- NOTE | 2019-05-15 16:12 | NUR ---
I have reviewed this patient and I concur with the Shift Assessment completed by the Licensed Practical Nurse today this shift.
--- NOTE | 2019-05-15 18:10 | NUR ---
EMPTIED APPROX 500ML OF URINE OUT OF [place]CMULLEN CATH. PT IS LYING SEMI FOWLERS. CALL LIGHT W/I REACH. PT DENIES ANY NEEDS. WILL CTM.
--- NOTE | 2019-05-15 19:10 | NUR ---
BEDSIDE REPORT RECEIVED FROM DAY SHIFT, PT CARE ASSUMED. WROTE NAME ON BOARD. PT LYING IN BED, WATCHING TV, AAOX4. DENIES ANY NEEDS AT THIS TIME. BED IN LOWEST POSITION, SR X2, CALL LIGHT WITHIN REACH. WILL CONTINUE TO MONITOR.
--- NOTE | 2019-05-15 20:21 | NUR ---
PT C/O LOWER BACK PAIN OF 4, ON A SCALE OF 0-10. TYLENOL AND NIGHT TIME MEDS ADMINISTERED, PER ORDER. DENIES ANY OTHER NEEDS AT THIS TIME. BED IN LOWEST POSITION, SR X2, CALL LIGHT WITHIN REACH. WILL CONTINUE TO MONITOR.
[2019-05-15 20:39] VITALS: BP 131/56
[2019-05-16 00:15] VITALS: BP 124/71
[2019-05-16 04:45] VITALS: BP 103/67
[2019-05-16 07:50] VITALS: BP 136/64
--- NOTE | 2019-05-16 08:47 | NUR ---
GAVE REPORT TO [facility] FOR THE FEEBLE-MINDED FOR PT TO GO ON HOSPICE.
--- NOTE | 2019-05-16 08:53 | MORECARE ---
CASE MANAGEMENT DISCHARGE SUMMARY PATIENT: ED VEGA UNIT: [id number] ADM DATE: 05/08/19 AGE: 78 : 42 SEX: M ROOM/BED: D.2109 AUTHOR: GUILLAUME,DOC PHYSICIAN: REFERRING PHYSICIAN: JUAN C RAMON MD DATE OF SERVICE: 05/16/19 Discharge Plan Patient Name: ED VEGA Facility: [facility]:[place] : 1940 Planned Disposition: Nursing Facility MIRIAN Cert Anticipated Discharge Date: 05/16/19 Discharge Date: Expected LOS: 8 Initial Reviewer: [id number] Initial Review Date: 05/08/2019 Generated: 05/16/19 9:52 am Comments DCP- Discharge Planning Updated by [id number]: Rowdy Stephen on 05/15/19 1:[address] Patient Name: ED VEGA Encounter No: [id number] : 1940 Primary Insurance: [employer] MEDICARE ADV Anticipated DC Date: 05-16-2019 Planned Disposition: Nursing Facility MIRIAN Cert External Planned Provider: [facility], LONGTERM CARE MEDICAID BED Discharge Planning Comments: CM RECEIVED DISCHARGE INFORMATION, FAXED TO [facility]. CM RECEIVED CALL FROM [facility], THEY WILL ACCEPT PT TOMORROW AND CANNOT ACCEPT TODAY THEY HAVE TWO ADMITS THEY ARE WORKING ON AND CANNOT DO ANOTHER TODAY. THEY WILL ICING MACHINE OPERATOR AT 0900, 05-15-19. CM NOTIFIED PT AND COIN DEALER NURSE. CM RECEIVED CALL FROM [facility] WHO INFORMED CM THEY WILL ADMIT TOMORROW AT [facility] AFTER HIS ARRIVAL. FOR DISCHARGE CALL NURSE REPORT TO [facility], , [facility] TO ICING MACHINE OPERATOR PT 05-16-19 AT 0900 HOURS. TRENT PARKS DCP- Discharge Planning Updated by [id number]: Rowdy Stephen on 05/14/19 12:[address] Patient Name: ED VEGA Admission Status: ER Accout number: [id number] Admission Date: 05-08-2019 : 1940 Admission Diagnosis: Attending: DWORKIN, JUAN C Current LOS: 6 Anticipated DC Date: 05-15-2019 Planned Disposition: Nursing Facility MIRIAN Cert Primary Insurance: [employer] MEDICARE ADV PLANNED EXTERNAL PROVIDER: [facility], NIGHT [employer]UB MANAGER CARE MEDICAID BED Discharge Planning Comments: CM SPOKE TO COMPA OF [facility] INPATIENT REHAB WHO INFORMED TREATMENT TEAM AT INTERDISCIPLINARY TEAM MEETING THAT PT WILL NOT QUALIFY FOR INPATIENT REHAB AFTER HEARING THERAPY RESULT OF 250 FEET WITH 20% ASSIST. CM LATER RECEIVED REQUEST TO MEET WITH PT AND FAMILY IN ROOM. PT REPORTS HE HAS DECIDED TO GO TO [facility] WITH [facility], HE HAS CALLED AND DISCUSSED WITH BOTH. CHOICE SIGNED. IMPORTANT MESSAGE FROM MEDICARE PROVIDED AND EXPLAINED. CM CALLED [facility], , LEFT MESSAGE FOR [facility] WHO HAS ALREADY SPOKEN TO PT. CM FAXED HOSPICE REFERRAL TO [facility] AT [phone]. CM CALLED [facility], , SPOKE TO [facility] WHO WILL REVIEW PT'S REFERRAL; THEY PLAN TO ACCEPT PENDING PSYCHOLOGICAL EVALUATION RESULTS AND NEED TO DETERMINE IF PT NEEDS HONORIO SCREENING. CM FAXED REFERRAL TO [facility] AT [phone]. CM SPOKE TO AHMET DIAZ, UPDATED ON SITUATION AND PT'S REQUEST FOR FPC PLACEMENT WITH HOSPICE; RECEIVED ORDERS TO [facility] AND FOR HOSPICE EVALUATION. CM CALLED [facility] TO NOTIFY [facility] THAT PT WILL NOT RECEIVE [facility] CONSULT, [facility] ADVISED THAT THEY WILL NEED DOCTOR TO NOTE WHY PT IS NOT NEEDING [facility] CONSULT NOW AND IT WOULD BE HELPFUL TO HAVE REASON FOR LEXAPRO MEDICATION NOTED. CM NOTIFIED AHMET DIAZ. CM WAITING ADMISSION DETERMINATION FROM [facility]. Jewel Corner Brushing Machine Operator: Rowdy Stephen DCP- Discharge Planning Updated by [id number]: Rowdy Stephen on 05/13/19 1:[address] Patient Name: ED VEGA Encounter No: [id number] : 1940 Primary Insurance: [employer] MEDICARE ADV Anticipated DC Date: 05-14-2019 Planned Disposition: Inpatient Rehab External Planned Provider: [facility] INPATIENT REHAB DCP follow-up note: CM RECEIVED REQUEST TO MEET WITH PT AND FAMILY IN ROOM. CM WAS NOT ABLE TO MEET WITH FAMILY DURING REQUESTED TIME DUE TO HAVING TO ATTEND "MDT" MEETING. CM SPOKE TO PT IN ROOM AFTER MEETING, FAMILY HAD DEPARTED. PT STATES HE WAS THINKING ABOUT REHAB BUT REALLY WANTS TO GO HOME, PT LIVES ALONE, FAMILY CHECKS ON HIM. PT STATES THAT WHEN HE GOES HOME, HE THINKS HE NEEDS OXYGEN AND A WHEELCHAIR. PT ASKED CM TO CALL HIS SON REGARDING PLANNING. CM CALLED ED VEGA JR., , WHO WAS CONCERNED ABOUT PT GOING HOME ALONE AND FEELS PT NEEDS REHAB AGAIN. PT JUST GOT OUT OF REHAB AND REFUSES TO GO TO A SHELTER FACILITY FOR REHAB OR MOVE INTO THE SON'S HOME FOR ASSISTANCE. THEY WANT HIM TO HAVE REHAB AT [facility] IF POSSIBLE. CM SPOKE TO PT IN ROOM WHO IS AGREEABLE FOR REHAB AT [facility] BUT WILL NOT CONSENT FOR NURSING FACILITY / SHELTER FACILITY. PT STATES IF INSURANCE WILL NOT PAY FOR INPATIENT AT [facility], HE WILL GO HOME WITH HOME HEALTH. CM OBTAINED ORDERS FOR INPATIENT REHAB PRESCREENING AND OCCUPATIONAL THERAPY EVALUATION. CM SPOKE TO COMPA WHO INFORMED CM THAT PT JUST LEFT INPATIENT REHAB RECENTLY AND IS DOUBTFUL THAT PT'S MANAGED MEDICARE WILL APPROVE AGAIN, BUT SHE WILL SUBMIT FOR AUTHORIZATION REQUEST WHEN OCCUPATIONAL THERAPY EVALUATION IS COMPLETED. CM WAITING OCCUPATIONAL THERAPY EVALUATION WELL INSURANCE AUTHORIZATION FOR INPATIENT REHAB AT [facility]. Rowdy Stephen, CASE MANAGEMENT DCP- Discharge Planning Updated by [email or web address]: Rowdy Stephen on 05/09/19 5:[address] Patient Name: ED VEGA Admission Status: ER Accout number: [id number] Admission Date: 05-08-2019 : 1940 Admission Diagnosis: Attending: JUAN C RAMON Current LOS: 1 Anticipated DC Date: Planned Disposition: INPATIENT REHAB Primary Insurance: [employer] MEDICARE ADV PLANNED EXTERNAL PROVIDER: [facility] INPATIENT REHAB Discharge Planning Comments: CM MET WITH PT IN ROOM TO DISCUSS DISCHARGE PLANNING AND NEEDS. PT REPORTS LIVING AT HOME INDEPENDENTLY AND ALONE. HE CAME BACK IN BECAUSE HE WAS WEAK, NOT FEELING WELL AND HIS LEGS ARE NOT WORKING. PT HAS A WALKER WITH NO MEDICAL EQUIPMENT PROVIDER PREFERENCE. PT WAS ARRANGED WITH [facility], BUT THEY DID NOT COME OUT BEFORE PT CAME BACK IN HOSPITAL. CM DISCUSSED AVAILABILITY OF HOME HEALTH, REHAB SERVICES AND MEDICAL EQUIPMENT. PT STATES HE HOPES TO DISCHARGE HOME, BUT THINKS HE WILL NEED REHAB. PT WILL NOT CONSIDER SHELTER FACLITY FOR REHAB. PT STATES HE WANTS REHAB AT [facility] AGAIN. CM EXPLAINED THAT PT HAS MANAGED MEDICARE AND WILL REQUIRE INSURANCE APPROVAL. PT REPORTS UNDERSTANDING. IF DECLINED REHAB, PT PLANS TO RETURN HOME AND WOULD LIKE HOME HEALTH WITH [facility]. PT WILL REQUIRED PHYSICAL AND OCCUPATIONAL THERAPY EVALUATIONS TO ASSESS NEED OF INPATIENT PHYSICAL THERAPY SERVICES. CM TO CONTINUE TO FOLLOW AND ASSIST NEEDED. Jewel Corner Brushing Machine Operator: Rowdy Stephen DCPIA - Discharge Planning Initial Assessment Updated by [email or web address]: Rowdy Stephen on 05/09/19 5:55 pm * Is the patient Alert and Oriented? Yes * How many steps to enter\\exit or inside your home? NONE * PCP DR. GOOD HERREID * [facility] * Preadmission Environment Home Alone * ADLs Independent * Equipment Walker * Other Equipment NO MEDICAL EQUIPMENT PROVIDER PREFERENCE * List name and contact numbers for known caregivers / representatives who currently or will assist patient after discharge: ANAY VEGA, SON, * Verbal permission to speak to the caregivers and representatives has been obtained from the patient. N/A * Community resources currently utilized Home Health * Please name any agencies selected above. [facility] * Additional services required to return to the preadmission environment? No * Can the patient safely return to the preadmission environment? Yes * Has this patient been hospitalized within the prior 30 days at any hospital? Yes Coverage Notice Reviewer: [id number] Pedro Stephen Notice Issued Date-Time: 05/14/2019 11:05 Notice Type: Patient Choice Letter Notice Delivered To: Patient Relationship to Patient: Water Filter Cleaner Name: Delivery Method: HAND - Hand Delivered Krissy Days: Prior Verbal Notification: Recipient Understood Notice: Yes Recipient Signature: Yes Med Rec Note Co-signed by Attending: Coverage Notice Comment: [facility] Reviewer: [id number] Pedro Stephen Notice Issued Date-Time: 05/14/2019 11:05 Notice Type: IM Discharge Notice Notice Delivered To: Patient Relationship to Patient: Water Filter Cleaner Name: Delivery Method: HAND - Hand Delivered Krissy Days: Prior Verbal Notification: Recipient Understood Notice: Yes Recipient Signature: Yes Med Rec Note Co-signed by Attending: Coverage Notice Comment: Last DP export: 05/15/19 2:17 Patient Name: ED VEGA Page [id number] at 0853 All edits/amendments must be made on the electronic document DICTATION DATE: 05/16/19851 CAN TECHNICIAN: ALLEN 05/16/19851 RPT#: [id number] DC DATE: STATUS: ADM IN [facility] [address] [place] [address] END OF REPORT
--- NOTE | 2019-05-16 08:55 | NUR ---
DISCHARGE INSTRUCTIONS GIVEN TO PT. CHART COPY SIGNED. DC'D RIGHT FA 20G IV WITH CATH INTACT. TELEMTRY DC'D. PT DRESSED. FAMILY AT BEDSIDE. PT WAITING ON CARRI TO PICK HIM UP. CARRI TO BE HERE FOR POINTER MACHINE OPERATOR AT 0900.
--- NOTE | 2019-05-16 09:13 | NUR ---
PT LEFT VIA WC ON O2 AT 2L VIA NC ACCOMPANIED BY FAMILY AND LEFT WITH [employer] STAFF IN THE [employer] VE[employer].
== END 2019-05-16 09:14 | disposition home health service (06) | DRG 682 ==
LOC: D.ER 09:06 → D.M2 12:44
PROVIDERS: Emergency Medicine; ADMIT Internal Medicine Nephrology; ATTEND Internal Medicine Nephrology
DX: N17.9 Acute kidney failure, unspecified (principal); I21.4 Non-ST elevation (NSTEMI) myocardial infarction; G93.41 Metabolic encephalopathy; I50.33 Acute on chronic diastolic (congestive) heart failure; E87.1 Hypo-osmolality and hyponatremia; C34.90 Malignant neoplasm of unspecified part of unspecified bronchus or lung; J98.11 Atelectasis; J96.11 Chronic respiratory failure with hypoxia; R26.9 Unspecified abnormalities of gait and mobility; D64.9 Anemia, unspecified; R55 Syncope and collapse; E03.9 Hypothyroidism, unspecified; K44.9 Diaphragmatic hernia without obstruction or gangrene; I25.10 Atherosclerotic heart disease of native coronary artery without angina pectoris; J44.9 Chronic obstructive pulmonary disease, unspecified; E86.0 Dehydration; I48.0 Paroxysmal atrial fibrillation; E87.5 Hyperkalemia; I11.0 Hypertensive heart disease with heart failure; R19.5 Other fecal abnormalities

== ENCOUNTER 2019-06-17 07:28 | Day surgery (SDC) | payer MEDICARE ==
[2019-06-16 14:37] LABS: HEMATOCRIT 34.3 % (42.0-54.0); HEMOGLOBIN 11.7 g/dL (13.5-17.5); MCH 32.4 pg (26.0-34.0); MCHC 34.1 g/dL (31.0-37.0); MEAN PLATELET VOLUME 9.7 fL (7.4-10.4); RBC 3.61 10x6/uL (4.20-6.10); RDW 14.6 % (11.5-14.5); WBC 8.4 10x3/uL (4.8-10.8)
[2019-06-16 14:59] LABS: INR 1.07 (0.85-1.17); PROTIME 13.4 SECONDS (11.6-15.0)
[2019-06-16 15:27] LABS: ANION GAP 13.1 mmol/L (8-16); CALCIUM 9.2 mg/dL (8.5-10.1); CARBON DIOXIDE 28.2 mmol/L (21.0-32.0); CREATININE - SERUM 1.2 mg/dL (0.6-1.3); POTASSIUM - SERUM 3.3 mmol/L (3.5-5.1)
[~2019-06-17] VITALS: Ht 177.8 cm; Wt 72.6 kg
[~2019-06-17 07:28] MED LIST changes: +BETAPACE 80 MG80 MG PO; +LEXAPRO10 MG PO; +PROTONIX40 MG PO; +SYNTHROID25 MCG PO
[2019-06-17] MEDS ORDERED: ATIVAN0.5 MG PO (08:06)
[2019-06-17] MEDS ORDERED: SENNA LAXATIVE8.6 MG PO (08:09)
[2019-06-17 08:17] VITALS: BP 132/70; Ht 177.8 cm; Wt 72.6 kg
--- NOTE | 2019-06-17 10:04 | NUR ---
MCMULLEN DATED 05/01/19 was removed. MCMULLEN TIP WAS CRUSTED, URINE RETAINED WAS CLOUDY AND CONTAINED SEDIMENT.
--- NOTE | 2019-06-17 12:36 | OP ---
PATIENT NAME: ED VEGA MEDICAL RECORD: [id number] :[birth year] [facility] DATE: SURGEON: OSCAR GALVEZ MD DATE OF OPERATION: 06/17/2019 SURGEON: Oscar Galvez MD ANESTHESIA: TIVA by June Pelayo CRNA. 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 PROCEDURE: UroLift times 4. FINDINGS: Bilateral lateral lobe obstruction. BLOOD LOSS: None. CLINICAL HISTORY: This is a 78-year-old male who has urinary retention. He had a Moore catheter placed over guidewire on April 28 2019. Cystoscopy then showed bilateral obstructive lateral lobes with hyperplasia. There is no significant median lobe and no bladder tumors. He has lung cancer for which he has been on chemotherapy, but now he stopped the chemotherapy. He is interested in having the UroLift procedure to relieve his urinary obstruction. He is allergic to CODEINE and HYDROCODONE. He was given Ancef pottery decoration designer to the OR. DESCRIPTION OF PROCEDURE: The patient was given IV sedation. He was then placed into dorsal lithotomy position and prepped and draped. The UroLift scope was introduced and the findings are as outlined above. We placed 2 units 1.5 cm distal to the bladder neck. These were placed one unit on each side at the anterolateral sulcus. Another 2 units were placed at the level of the verumontanum at the level of the anterolateral sulcus. One unit was placed on each side. He has now had a nice wide open prostatic urethra. A 16-Lao Moore catheter was inserted back into the bladder and the balloon was inflated with 10 cc of sterile water. I will see the patient in a few days' time to remove the catheter for a voiding trial. TRANSINT:[id number] Voice Confirmation ID: [id number] DOCUMENT ID: [id number] OSCAR GALVEZ MD at 1236 CC: [id number] DICTATION DATE: 06/17/19 1018 GREY IRON MOLDER: 06/17/19 1111 [facility] [address] [place] [address]
--- NOTE | 2019-06-17 13:50 | NUR ---
1125 IV DC'D. CATHETER TIP INTACT. NO BLEEDING AT SITE. WRAPPED IV SITE WITH COBAN TO PREVENT SKIN TEARING WITH ADHESIVES.
--- NOTE | 2019-06-17 14:04 | NUR ---
1145 PT DRESSED AND READY TO BE DISCHARGED HOME. NO POST OP COMPLICATIONS. PT UNDERSTANDS DISCHARGE INSTRUCTIONS AND FOLLOW UP WITH DR. GALVEZ. PT DOES NOT WANT TO USE WHEELCHAIR AND WANTS TO AMBULATE OUT WITH HIS WALKER.
== END 2019-06-17 11:45 | disposition home or self-care (01) ==
LOC: D.OPS 07:28 → D.PAN 08:55 → D.OPS 09:00 → D.PAN 09:20 → D.OPS 09:30 → D.PAN 09:30 → D.OPS 11:00
PROVIDERS: Anesthesiology; ATTEND Urology
DX: N40.1 Benign prostatic hyperplasia with lower urinary tract symptoms (principal); J44.9 Chronic obstructive pulmonary disease, unspecified; I25.10 Atherosclerotic heart disease of native coronary artery without angina pectoris; K21.9 Gastro-esophageal reflux disease without esophagitis; K44.9 Diaphragmatic hernia without obstruction or gangrene; R33.8 Other retention of urine